=== PATIENT | male | born 1945 | race Caucasian/White ===

== ENCOUNTER → 2016-11-18 | Outpatient (CLI) | payer MEDICARE ==
--- NOTE | 2016-11-18 10:52 | US ---
EXAMINATION TYPE: US bladder DATE OF EXAM: 11/18/2016 10:36 AM COMPARISON: US 2014 CLINICAL HISTORY: N40.1 Benign prostatic hyperplasia with lower urin. Patient states has difficulty s tarting to void and c/o tightening sensation at onset of urination; post TURP 2014 Bladder jets are seen bilaterally both pre and post void. Post void residual volume abnormal as is >5 0ml at 51.4ml. Small fluid area is noted posterior to bladder = 4.1 x 4.3 x 0.5cm. IMPRESSION: 1. Mildly prominent post void residual. 2. Small amount of free fluid suggested.
== END | disposition home or self-care (01) ==
LOC: RADUSWWP 10:15
PROVIDERS: ATTEND Family Medicine
DX: N40.1 Benign prostatic hyperplasia with lower urinary tract symptoms (principal)
CPT/HCPCS: 76857

== ENCOUNTER → 2017-07-22 | Outpatient (CLI) | payer MEDICARE ==
--- NOTE | 2017-07-22 16:55 | PN ---
PROGRESS NOTE A 71-year-old male patient with known history of REM behavior disorder and severe periodic limb movements. The patient is coming in for a yearly check. I have treated this patient with clonazepam 0.5 mg at bedtime which had an excellent clinical response for him to the point where his violent and aggressive behaviors at night has completely subsided and the patient is not having any significant leg kicks. No numbness or tingling or creeping crawling sensation in lower extremities. He is averaging around 7- 8 hours of sleep at night without any major difficulties and waking up refreshed and alert and awake during the day. No side effects related to any of his medications. He maintains a regular sleep-wake cycle. No snoring. No weight gain. His weight has been stable over the past 1 year. He feels that the benefit of the medication is still unchanged over the past 1 year and would like to refill the medication. His sleep is interrupted mainly due to excess urination knowing that the patient has enlarged prostate and the patient was maintained on a combination of Proscar, Cardura and Flomax. He is post TURP. REVIEW OF SYSTEMS: A 12-point review of system was done. Positive findings are mentioned above in the history of present illness. Otherwise negative. PHYSICAL EXAMINATION: BP is 148/67, pulse 60, respirations 16, temp 97.7, saturation 99% on room air. Weight is 158, height is 5 feet 11 inches, BMI is 22, and neck size 13-3/4 of an inch. GENERAL APPEARANCE: Calm, comfortable. No acute distress. HEAD: Atraumatic, normocephalic. NECK: Supple. There is no JVD. No goiter neck mass. LUNGS: Clear to auscultation. HEART: Sounds regular rhythm. Normal S1, S2. No S3. No murmurs. ABDOMEN: Soft, nontender. No organomegaly. EXTREMITIES: No edema. No cyanosis or clubbing. NEUROLOGIC: The patient is OAx3. There is no focal neurological deficit. PSYCHIATRIC: The patient has appropriate mood and affect. IMPRESSION: 1. REM behavioral disorder. 2. Periodic limb movements, severe. 3. History of insomnia currently inactive and stable and well treated. 4. Hypertension. 5. Acid reflux. 6. Benign prostatic hypertrophy, post transurethral resection of prostate. PLAN: The patient continues to see if full benefit of clonazepam without any reported side effects. We will refill the medication at a dose of 0.5 mg for another year. He has no active issues or complaints for now. Continue the treatment and I will see him back in a year's time in followup. The patient is already getting ready to go to [place] for winter. We will continue to follow. MMODL / IJN: [id number] /
== END | disposition home or self-care (01) ==
LOC: SLEEP 15:02
PROVIDERS: ATTEND Internal Medicine Critical Care Medicine
DX: G47.52 REM sleep behavior disorder (principal); G47.61 Periodic limb movement disorder; N40.1 Benign prostatic hyperplasia with lower urinary tract symptoms; I10 Essential (primary) hypertension; K21.9 Gastro-esophageal reflux disease without esophagitis; Z86.59 Personal history of other mental and behavioral disorders; Z79.899 Other long term (current) drug therapy

== ENCOUNTER → 2018-05-19 | Outpatient (CLI) | payer MEDICARE ==
--- NOTE | 2018-05-19 13:24 | MR ---
EXAMINATION TYPE: MR lumbar spine wo/w con DATE OF EXAM: 05/19/2018 COMPARISON: None HISTORY: low back pain, numbness rt foot TECHNIQUE: Multiplanar, multisequence images of the lumbar spine were acquired utilizing 7.5 mL intravenous Gada vist gadolinium contrast. L1-L2: Posterior broad-based disc bulge causes mild anterior mass effect on the thecal sac. There is facet arthropathy with hypertrophy ligamentum flavum. No significant central stenosis or foraminal en croachment. L2-L3: Posterior broad-based disc bulge, extension of endplate disc complex causes mild anterior mass effect on the thecal sac and extends are essentially towards the foramina causing mild encroachment on the left greater than right. L3-L4: Posterior broad-based disc bulge causes mild anterior mass effect on the thecal sac. Facet art hropathy with hypertrophy of ligamentum flavum causes posterior lateral mass effect on the thecal sac . Circumferential extension of endplate disc complex results in some mild bilateral foraminal encroac hment. L4-L5: Listhesis contributes to cause a trefoil appearance of the thecal sac, there is facet arthropa thy with hypertrophy ligamentum flavum. Circumferential extension of endplate disc complex results in foraminal encroachment greater on the right than on the left which may be contributed by the spinal curvature, suspect there is a small right lateral disc herniation additionally, sagittal image 9 of t he T2 weighted data set. L5-S1: Laminectomy change is present bilaterally. There is no evident spinal stenosis. Circumferentia l extension of endplate disc complex encroaches upon the neural foramina. Mild anterior mass effect n oted on the thecal sac. Lumbar segments are intact. No paraspinal masses are identified. Conus medullaris has a normal appe arance. There is multilevel spondylosis. Minimal retrolisthesis grade 1 L5-S1, anterolisthesis grade 1 L4-5, retrolisthesis grade 1 L3-4, L2-3. There is loss of disc height signal at intervertebral leve ls and there is associated vacuum phenomenon L2-3 through L5-S1. Endplate discogenic marrow signal ch anges present compatible with degenerative disc disease. Parapelvic cysts are noted within the kidney s. There is a spinal curvature. No abnormal enhancement following contrast administration. IMPRESSION: Degenerative disc disease, multilevel foraminal encroachment, facet arthropathy as described. No sign ificant spinal stenosis. Postop changes, spinal curvature and additional findings above.
== END | disposition home or self-care (01) ==
LOC: RADMRIMAIN 08:31
PROVIDERS: ATTEND Psychiatry & Neurology Neurology
DX: M51.16 Intervertebral disc disorders with radiculopathy, lumbar region (principal); M46.96 Unspecified inflammatory spondylopathy, lumbar region; M43.9 Deforming dorsopathy, unspecified; Z98.890 Other specified postprocedural states
CPT/HCPCS: 82565; 72158; 36415; A9585

== ENCOUNTER → 2018-06-30 | Outpatient (CLI) | payer MEDICARE ==
--- NOTE | 2018-06-30 15:03 | PN ---
PROGRESS NOTE Drew is 72, and the patient is coming to see me for an annual check. The patient has been diagnosed having REM behavior disorder. He also has some periodic limb movements, restless legs syndrome type of features. He has done extremely well. This is his annual check. He is not having any issues with violent or aggressive behavior at nighttime and his nights are quiet and restful. He is sleeping next to his . As mentioned, no aggressive behavior or any other unusual behavior. He has been on Klonopin for more than a year. The does is at 0.5 mg. He goes to bed around 10 p.m., waking up 7 am in the morning. He is taking a nap during the day and this are 15-20 minute nap 20 minute power naps. No trouble with memory or concentration. No problems with falling, no problems with balance, no problems with equilibrium, no issues with . He underwent another prostate surgery/TURP in this in the occasion urination wakes him up from sleep. No other complaints otherwise for now. He will be going to [place] for winter. His current vitals, BP is 145/51 pulse 64, respirations 12,. [id number] 98.5 weight is of 159 height is 5 feet 10 inches. [place] score is 11. BMI 22.4 general appearance calm comfortable head is atraumatic, normocephalic. Neck is supple. No JVD. No goiter or neck masses. Lungs diminished otherwise clear heart sounds regular. Normal S1, S2. No S3, S4. No murmurs. Abdomen is soft, nontender. No organomegaly. EXTREMITIES: No edema. No cyanosis or clubbing. NEUROLOGIC: Alert and oriented x3. No focal neurological deficits. PSYCHIATRIC: Negative for anxiety or depression. USUAL MEDICATIONS INCLUDE: Cardura 1 mg daily, and Klonopin 0.5 mg p.o. daily ranitidine 150 mg twice a day. Lisinopril 20 mg p.o. daily Klor-Con 10 mg p.o. daily. Mesalamine 1.2 g twice a day. Proscar 5 mg p.o. daily Flomax 0.4 mg p.o. daily. IMPRESSION: 1. REM behavior disorder on chronic pain well controlled with a dose of 0.5 mg p.o. daily. The patient takes the medication prior half an hour prior to going to sleep. 2. Periodic limb movements. Severe currently inactive and stable. No signs of any sleep fragmentation no major hypersomnia or sleepiness during the day. 3. History of insomnia \. improved, P next \\\hypertension next chronic acid reflux. 4. Benign prostatic hypertrophy. PLAN: 1. Continue the medication for a year at the same dose. 2. No signs of any REM behavior disorder. 3. No signs of any sleep fragmentation, periodic limb movements are well treated for now. Follow up with his primary care physician. MMODL / IJN: [id number] /
== END | disposition home or self-care (01) ==
LOC: SLEEP 13:07
PROVIDERS: ATTEND Internal Medicine Critical Care Medicine
DX: G47.52 REM sleep behavior disorder (principal); G47.61 Periodic limb movement disorder; I10 Essential (primary) hypertension; K21.9 Gastro-esophageal reflux disease without esophagitis; N40.0 Benign prostatic hyperplasia without lower urinary tract symptoms; Z79.899 Other long term (current) drug therapy

== ENCOUNTER → 2019-07-29 | Outpatient (CLI) | payer MEDICARE ==
--- NOTE | 2019-08-04 13:15 | P.ARTDOP ---
Arterial Doppler LOWER EXTREMITY ARTERIAL DOPPLER: DATE OF SERVICE: 07/29/2019 Reason for study: Right foot numbness and cramping. Doppler waveforms: Multiphasic bilaterally throughout. Pulse volume recording: []. Pressure gradients: None. Ankle-brachial indices: Greater than 1 bilaterally. Toe pressures: 113 on the right, 137 on the left Impression: Normal study.
== END | disposition home or self-care (01) ==
LOC: RADUSWWP 12:42
PROVIDERS: ATTEND Family Medicine
DX: M79.606 Pain in leg, unspecified (principal)
CPT/HCPCS: 93922

== ENCOUNTER → 2020-06-13 | Outpatient (CLI) | payer MEDICARE ==
--- NOTE | 2020-06-13 16:01 | PN ---
PROGRESS NOTE A 74-year-old male patient coming in for an annual check. The patient has been diagnosed having a component of REM behavior disorder. I started the patient on clonazepam 10.5 mg at bedtime, which has improved significantly symptoms of agitation, restlessness and he does not have any significant violent or aggressive behavior at nighttime. At the same time, his leg kicks have improved and the patient has settled and he is sleeping much more calm and comfortable and quiet according to the . He takes his clonazepam 0.5 mg around half to 1 hour before going to bed. He is going to bed around 11 o'clock to midnight. He wakes up in the morning without any major difficulties. No daytime hypersomnia or sleepiness. He wakes up a few times in the middle of night to urinate. He has undergone TURP. He does not fall. He does not have any sleepwalking. No loss in balance or equilibrium. He was having some dizziness and this was attributed to some blood pressure issues and his blood pressure medication had been adjusted and since then, dizziness went away. His current [place] score is at 10. No recent weight gain. No other new complaints otherwise for now. He has an intact memory and concentration and his judgment is stable. PHYSICAL EXAMINATION: BP is 138/63, pulse is 68, respirations 18, temperature 98.1, saturation 99% on room air. [place] score is at 10. GENERAL APPEARANCE: Calm, comfortable. HEAD: Atraumatic, normocephalic. NECK: Supple. No JVD. No goiter or neck masses. LUNGS: Clear to auscultation. HEART: Heart sounds are regular rate and rhythm, normal S1, S2. No murmurs. ABDOMEN: Soft, nontender. No organomegaly. EXTREMITIES: No edema, no cyanosis or clubbing. NEUROLOGIC: Awake, alert, there is no focal neurologic neurological deficit. IMPRESSION: 1. REM behavioral disorder, currently on clonazepam, well controlled. 2. Severe periodic limb movement activity, stable on clonazepam. 3. Insomnia, improved with clonazepam. 4. BPH with nocturnal urination. PLAN: 1. No side effect to clonazepam. The patient is taking medication without any morning hangover. No sleepwalking. No falls. No augmentation effect. The patient will be kept on the same medication for now, the dose of 0.5 mg at bedtime and this will be refilled for another 1 year. 2. Keep good sleep hygiene measures. 3. Implement good sleep hygiene measures. 4. See me back in a year's time in followup or earlier if needed. His condition is stable for now. I do not see any objections for this medication to be refilled for another year. MMODL / IJN: [id number] /
== END | disposition home or self-care (01) ==
LOC: SLEEP 14:34
PROVIDERS: ATTEND Internal Medicine Critical Care Medicine
DX: G47.61 Periodic limb movement disorder (principal); G47.00 Insomnia, unspecified; N40.0 Benign prostatic hyperplasia without lower urinary tract symptoms

== ENCOUNTER 2022-05-31 06:47 | Inpatient (IN) | payer MEDICARE ==
[2022-05-31] MEDS ORDERED: MORPHINE SULFATE 4 MG/ML SYRINGE IV STA (07:18)
--- NOTE | 2022-05-31 07:24 | ED ---
General Adult HPI - General Chief complaint: Extremity Problem,Nontraumatic Stated complaint: Back pain Time Seen by Provider: 05/31/22 06:56 Source: patient, family, RN notes reviewed Mode of arrival: wheelchair Limitations: no limitations - History of Present Illness Initial comments: Patient is a pleasant 76-year-old male presenting to the emergency Department with chief complaint of back pain. Onset of symptoms was around 5:30. Discomfort does increase with movement and position changes. Patient also has discomfort radiating down his right arm that is difficult to describe. Patient feels it is more in his joints. Discomfort is mostly near the scapula on the right. No headache. No confusion. Patient feels the right arm may be a little bit weak. Patient also had difficulty walking into the emergency department. Patient did not have walking difficulty earlier this morning. - Related Data Home Medications Medication Instructions Recorded Confirmed clonazePAM [KlonoPIN] 0.5 mg PO HS 07/28/15 05/31/22 lisinopriL [Prinivil] 20 mg PO DAILY 07/28/15 05/31/22 Cholecalciferol (Vitamin D3) 75 mcg PO DAILY 05/31/22 05/31/22 [Vitamin D3 (3000 Iu)] Famotidine [Pepcid] 20 mg PO AC-BID 05/31/22 05/31/22 Mesalamine [Lialda] 2.4 gm PO DAILY 05/31/22 05/31/22 Multivitamins, Thera [Multivitamin 1 tab PO DAILY 05/31/22 05/31/22 (formulary)] Potassium Chloride 10 meq PO DAILY 05/31/22 05/31/22 Saw Wales 500 mg PO DAILY 05/31/22 05/31/22 Vitamin B Complex 1 cap PO DAILY 05/31/22 05/31/22 Allergies Allergy/AdvReac Type Severity Reaction Status Date / Time amlodipine besylate AdvReac extreme Verified 05/31/22 06:53 [From Norvasc] anxiety amoxicillin trihydrate AdvReac Nausea & Verified 05/31/22 06:53 [From Augmentin] Vomiting & Diarrhea potassium clavulanate AdvReac Nausea & Verified 05/31/22 06:53 [From Augmentin] Vomiting & Diarrhea Review of Systems ROS Statement: Those systems with pertinent positive or pertinent negative responses have been documented in the HPI. ROS Other: All systems not noted in ROS Statement are negative. Constitutional: Denies: fever Eyes: Denies: eye pain ENT: Denies: ear pain Respiratory: Denies: cough Cardiovascular: Denies: chest pain Endocrine: Denies: fatigue Gastrointestinal: Denies: abdominal pain Genitourinary: Denies: dysuria Musculoskeletal: Reports: as per HPI, back pain Skin: Denies: rash Neurological: Reports: as per HPI. Denies: headache, confusion Past Medical History Past Medical History: GERD/Reflux, Hypertension Additional Past Medical History / Comment(s): diarrhea, sometimes bloody mucus, abd. 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 administrative assistant, REM sleeping disorder History of Any Multi-Drug Resistant Organisms: None Reported Past Surgical History: Back Surgery, Hernia Repair, Prostate Surgery Additional Past Surgical History / Comment(s): TURP in 2014 Past Anesthesia/Blood Transfusion Reactions: Previous Problems w/ Anesthesia, Postoperative Nausea & Vomiting (PONV) Additional Past Anesthesia/Blood Transfusion Reaction / Comment(s): slow to wake up w/TURP Past Psychological History: No Psychological Hx Reported Smoking Status: Never smoker Past Alcohol Use History: Rare Past Drug Use History: None Reported - Past Family History Father Family Medical History: Cancer Sister(s) Family Medical History: Cancer General Exam Limitations: no limitations General appearance: alert, in no apparent distress Head exam: Present: normocephalic Eye exam: Present: normal appearance, PERRL, EOMI ENT exam: Present: normal oropharynx Neck exam: Present: normal inspection. Absent: tenderness Respiratory exam: Present: normal lung sounds bilaterally Cardiovascular Exam: Present: regular rate, normal rhythm Expanded Peripheral pulses: 2+: Radial (R), Radial (L), Posterior Tibialis (R), Posterior Tibialis (L) GI/Abdominal exam: Present: soft. Absent: tenderness Extremities exam: Present: normal inspection. Absent: tenderness Back exam: Present: tenderness (Right mid thoracic, mostly medial to the scapula) Neurological exam: Present: alert, oriented X3, CN II-XII intact Expanded Neurological exam: Present: protecting the airway Speech: Present: fluid speech Cranial nerves: EOM's Intact: Normal Sensory exam: Upper Extremity Light Touch: Normal, Lower Extremity Light Touch: Normal Motor strength exam: RUE: 5 (Slight decrease strength with inspection manager), LUE: 5, RLE: 2/1, LLE: 5 Eye Response: (4) open spontaneously Motor Response: (6) obeys commands Verbal Response: (5) oriented Psychiatric exam: Present: normal affect, normal mood Skin exam: Present: normal color Course Vital Signs 05/31/22 05/31/22 05/31/22 06:51 07:00 07:45 Temperature 97.8 F Pulse Rate 70 74 54 L Respiratory 18 18 18 Rate Blood Pressure 211/96 213/112 202/92 O2 Sat by Pulse 99 100 98 Oximetry 05/31/22 05/31/22 05/31/22 08:00 08:15 08:30 Temperature Pulse Rate 58 L 58 L 60 Respiratory 18 18 18 Rate Blood Pressure 163/83 161/80 165/87 O2 Sat by Pulse 98 98 98 Oximetry 05/31/22 08:45 Temperature Pulse Rate 52 L Respiratory 18 Rate Blood Pressure 179/85 O2 Sat by Pulse 97 Oximetry - Reevaluation(s) Reevaluation #1: 05/31/22 07:32 I did speak with Dr. Arredondo who agrees he does not feel stroke is the likely diagnosis however does recommend calling a code stroke to rule out the potential and he can help with evaluation of patient. He will evaluate patient. Patient woke with pain and right arm symptoms at 5:30 in the morning. Patient did not notice leg weakness at that time. Last known well for leg weakness would be 6:30. 05/31/22 07:48 Case was discussed with neurology Dr. nugent who agrees patient is not a TPA candidate secondary to patient not being a clear-cut diagnosis of CVA. 05/31/22 08:29 05/31/22 08:35 Patient reevaluated. Case was also discussed with practitioner branch, who was requested to evaluate patient. He will consult with Dr. Abrams. They will determine if patient needs MRI. 05/31/22 08:57 Case was discussed with Dr. López, who will admit covering Dr. Ramirez. He does request ordering an MRI cervical and thoracic with and without IV contrast. EKG Findings - EKG Comments: EKG Findings:: EKG interpreted by me sinus rhythm at 74. ME 172. QRS 95. QT 382. QTC 410. Normal axis. Normal QRS. T wave inversion V6. Medical Decision Making - Lab Data Result diagrams: 05/31/22 07:22 05/31/22 07:22 Lab Results 05/31/22 05/31/22 05/31/22 Range/Units 07:22 07:22 07:22 WBC 4.5 (3.8-10.6) k/uL RBC 5.23 (4.30-5.90) m/uL Hgb 16.0 (13.0-17.5) gm/dL Hct 43.9 (39.0-53.0) % MCV 83.9 (80.0-100.0) fL MCH 30.6 (25.0-35.0) pg MCHC 36.5 (31.0-37.0) g/dL RDW 12.8 (11.5-15.5) % Plt Count 146 L (150-450) k/uL MPV 7.7 Neutrophils % 69 % Lymphocytes % 16 % Monocytes % 11 % Eosinophils % 1 % Basophils % 1 % Neutrophils # 3.1 (1.3-7.7) k/uL Lymphocytes # 0.7 L (1.0-4.8) k/uL Monocytes # 0.5 (0-1.0) k/uL Eosinophils # 0.1 (0-0.7) k/uL Basophils # 0.0 (0-0.2) k/uL PT 10.3 (9.0-12.0) sec INR 0.9 (<1.2) APTT 25.7 (22.0-30.0) sec D-Dimer 0.48 (<0.60) mg/L FEU Sodium 139 (137-145) mmol/L Potassium 3.4 L (3.5-5.1) mmol/L Chloride 105 (98-107) mmol/L Carbon Dioxide 31 H (22-30) mmol/L Anion Gap 3 mmol/L BUN 18 (9-20) mg/dL Creatinine 0.83 (0.66-1.25) mg/dL Est GFR (CKD-EPI)AfAm >90 (>60 ml/min/1.73 sqM) Est GFR (CKD-EPI)NonAf 86 (>60 ml/min/1.73 sqM) Glucose 129 H (74-99) mg/dL Plasma Lactic Acid Alexys (0.7-2.0) mmol/L Calcium 8.5 (8.4-10.2) mg/dL Magnesium 2.1 (1.6-2.3) mg/dL Total Bilirubin 0.6 (0.2-1.3) mg/dL AST 37 (17-59) U/L ALT 36 (4-49) U/L Alkaline Phosphatase 78 (38-126) U/L Troponin I (0.000-0.034) ng/mL Total Protein 6.7 (6.3-8.2) g/dL Albumin 4.0 (3.5-5.0) g/dL 05/31/22 05/31/22 Range/Units 07:22 07:22 WBC (3.8-10.6) k/uL RBC (4.30-5.90) m/uL Hgb (13.0-17.5) gm/dL Hct (39.0-53.0) % MCV (80.0-100.0) fL MCH (25.0-35.0) pg MCHC (31.0-37.0) g/dL RDW (11.5-15.5) % Plt Count (150-450) k/uL MPV Neutrophils % % Lymphocytes % % Monocytes % % Eosinophils % % Basophils % % Neutrophils # (1.3-7.7) k/uL Lymphocytes # (1.0-4.8) k/uL Monocytes # (0-1.0) k/uL Eosinophils # (0-0.7) k/uL Basophils # (0-0.2) k/uL PT (9.0-12.0) sec INR (<1.2) APTT (22.0-30.0) sec D-Dimer (<0.60) mg/L FEU Sodium (137-145) mmol/L Potassium (3.5-5.1) mmol/L Chloride (98-107) mmol/L Carbon Dioxide (22-30) mmol/L Anion Gap mmol/L BUN (9-20) mg/dL Creatinine (0.66-1.25) mg/dL Est GFR (CKD-EPI)AfAm (>60 ml/min/1.73 sqM) Est GFR (CKD-EPI)NonAf (>60 ml/min/1.73 sqM) Glucose (74-99) mg/dL Plasma Lactic Acid Alexys 1.4 (0.7-2.0) mmol/L Calcium (8.4-10.2) mg/dL Magnesium (1.6-2.3) mg/dL Total Bilirubin (0.2-1.3) mg/dL AST (17-59) U/L ALT (4-49) U/L Alkaline Phosphatase (38-126) U/L Troponin I <0.012 (0.000-0.034) ng/mL Total Protein (6.3-8.2) g/dL Albumin (3.5-5.0) g/dL Disposition Clinical Impression: Back pain, Weakness Disposition: ADMITTED IP TO THIS [facility] Condition: Serious Is patient prescribed a controlled substance at d/c from ED?: No Time of Disposition: 08:36
[2022-05-31 07:33] LABS: Basophils % (A) 1 %; Eosinophils # (A) 0.1 k/uL (0-0.7); Eosinophils % (A) 1 %; HCT 43.9 % (39.0-53.0); Lymphocytes # (A) 0.7 k/uL (1.0-4.8); Lymphocytes % (A) 16 %; MCH 30.6 pg (25.0-35.0); MCHC 36.5 g/dL (31.0-37.0); MCV 83.9 fL (80.0-100.0); Mean Platelet Volume 7.7; Monocytes # (A) 0.5 k/uL (0-1.0); Monocytes % (A) 11 %; Neutrophils # (A) 3.1 k/uL (1.3-7.7); Neutrophils % (A) 69 %; Platelet Count 146 k/uL (150-450); RBC 5.23 m/uL (4.30-5.90); RDW 12.8 % (11.5-15.5); WBC 4.5 k/uL (3.8-10.6)
[2022-05-31 07:48] LABS: ALT 36 U/L (4-49); AST 37 U/L (17-59); African American GFR (CKD) >90 (>60 ml/min/1.73 sqM); Alkaline Phosphatase 78 U/L (38-126); Anion Gap 3 mmol/L; Blood Urea Nitrogen 18 mg/dL (9-20); Calcium 8.5 mg/dL (8.4-10.2); Carbon Dioxide 31 mmol/L (22-30); Chloride 105 mmol/L (98-107); Glucose 129 mg/dL (74-99); Magnesium 2.1 mg/dL (1.6-2.3); Non-African American GFR(CKD) 86 (>60 ml/min/1.73 sqM); Potassium 3.4 mmol/L (3.5-5.1); Sodium 139 mmol/L (137-145); Total Bilirubin 0.6 mg/dL (0.2-1.3); Total Protein 6.7 g/dL (6.3-8.2)
[2022-05-31 07:50] LABS: INR 0.9 (<1.2); Partial Thromboplastin Time 25.7 sec (22.0-30.0); Prothrombin Time 10.3 sec (9.0-12.0)
--- NOTE | 2022-05-31 07:51 | CT ---
EXAMINATION TYPE: CT brain wo con DATE OF EXAM: 05/31/2022 COMPARISON: 06/19/2012 HISTORY: weakness CT DLP: 1082.[address] of the brain was performed. The ventricles, basal cisterns and sulci overlying the cerebral convexities demonstrate mild enlargem ent. There is no evidence for intracranial hemorrhage or sulcal effacement. There is decreased attenuation about the periventricular white matter and deep white matter of both c erebral hemispheres, compatible with chronic small vessel ischemia. Differential diagnosis does inclu de demyelination. No mass effects are seen.No midline shift. Osseous calvarium is intact. If symptoms persist consider MRI. IMPRESSION: 1. Age related atrophic and chronic small vessel ischemic change without acute intracranial process s een at this time.
--- NOTE | 2022-05-31 08:12 | XR ---
EXAMINATION TYPE: XR chest 2V DATE OF EXAM: 05/31/2022 COMPARISON: NONE TECHNIQUE: PA and lateral views submitted. HISTORY: Weakness FINDINGS: The lungs are clear and there is no pneumothorax, pleural effusion, or focal pneumonia. Heart size normal. Hyperinflation suggests COPD. Arthropathy of the shoulders. Hypertrophic changes of the spine . IMPRESSION: 1. No acute process.
[2022-05-31] MEDS ORDERED: NALOXONE 0.4 MG/ML 1 ML VIAL IV PRN (08:38)
--- NOTE | 2022-05-31 08:51 | CT ---
EXAMINATION TYPE: CT angio head neck DATE OF EXAM: 05/31/2022 HISTORY: weakness COMPARISON: CT DLP: 554.7 mGycm. Automated Exposure Control for Dose Reduction was Utilized. TECHNIQUE: CTA scan of the neck is performed with IV Contrast, patient injected with 65 mL of Isovue 370, axial images are obtained, coronal and sagittal reformatted images are reviewed. Three-D recons tructed images are created on an independent workstation and reviewed. Source images are reviewed. FINDINGS: Carotid/Vascular Structures: There is a common origin of the right subclavian and left common carotid artery from the innominate. Left clavian artery appears normal. Vertebral arteries are codominant. S ome minimal plaquing is at the left carotid bifurcation. No significant flow-limiting stenosis is erika dent. The internal carotid arteries and vertebral arteries are patent to the skull base. Cervical of Gonsalves: Vertebral basilar system appears normal. Posterior cerebral vasculature is unrema rkable. Internal carotid arteries bifurcate normally into A1 and M1 segments. A2 segments are normal. The anterior communicating artery appears to be patent. Left Posterior communicating artery is paten t. Right posterior communicating artery is patent. Other: Portion of the thyroid visualized is normal. There is a 0.8 cm nodule within the right upper l regulo field. This appears to have a central calcification suggesting granuloma. Monitoring for stabilit y is recommended. Additional apical nodules are present; on the right this measures 0.3 cm and on the left this measures 0.5 cm. No aortic dissection or aneurysm is evident within the field of view. IMPRESSION: 1. No flow-limiting stenosis bilateral carotid bifurcations. 2. Normal [place] of [place]ves 3. Apical lung nodules. Follow-up chest exam in 6 months is recommended to confirm stability. NASCET criteria was used in interpretation of this exam?
[2022-05-31] MEDS: SODIUM CHLORIDE 0.9% 1,000 ML IV SCH (08:58)
--- NOTE | 2022-05-31 09:25 | US ---
EXAMINATION TYPE: US duplex aorta DATE OF EXAM: 05/31/2022 COMPARISON: NONE CLINICAL HISTORY: Pain, evaluate aorta. TECHNIQUE: Multiple sonographic images of the abdominal aorta are obtained. FINDINGS: EXAM MEASUREMENTS: Abdominal Aorta: Proximal: 2.5cm Mid: 2.0cm Distal: 1.7cm Bifurcation: obscured by overlying bowel gas IMPRESSION: Visualized aorta is normal. No diagnostic aneurysm
[2022-05-31] MEDS: FAMOTIDINE 20 MG TAB PO SCH ×2 (09:31→22:15)
[2022-05-31] MEDS: HYDROmorphone 0.5 MG/0.5 ML SYRINGE IVP PRN (10:04)
[2022-05-31] MEDS ORDERED: NON FORMULARY DRUG (Vitamin B Complex [Vitamin B Complex] 1 EACH Capsule) PO SCH (10:15)
--- NOTE | 2022-05-31 10:44 | P.CNNES ---
History of Present Illness Consult date: 05/31/22 Requesting physician: Darren Quijano Reason for Consult: weakness History of Present Illness: This is a 76-year-old gentleman who presented emergency department on 05/31/2022 because of weakness of the right side. Patient last normal state was about midnight and when woke-up today between 5-5:30AM he noticed his right upper extremity is numb and was having pain on "right blade" referring to right inferior posterior blade. He noticed that his right hand is weak. He denied any facial weakness, difficulty getting his words out, any visual disturbance. Denied of any headache. Denies of any chest pain or any back pain. He stated the pain was a acute in onset. He initially did not have weakness in the right lower extremity and according to the when they arrive to the hospital patient was having weakness in the right lower extremity and that was around 6ish AM today. Now he has weakness over the left lower extremity. Patient stated that he had a bowel movement yesterday and denies worsening of the bowel movement. Denies any worsening of his urinary symptoms. Denies any history of stroke or denies any history of cancer. Denies history of fall and that's recent. Denies trauma to the neck or back. He currently feels the pain in the lights inferior posterior shoulder is rating over to the right and neck region. He denies any numbness in the perianal region. Denies being on any anticoagulation or being on aspirin or antiplatelets. Some of the workup during this hospital visit Initial vital his blood pressure of 211/96, heart rate of 70, respiratory of 18, temperature of 97.8 Fahrenheit oral and pulse ox of 99% room air. The ED physician contacted me via phone and I asked him to activate the stroke code. CT of the head is reported as age-related atrophic and chronic small vessel ischemic change without acute intracranial process seen at this time. CT angiography of the head and neck was reported as no flow-limiting stenosis bilateral carotid bifurcation. Normal inupiat of [place]. Apical lung nodule. Follow-up chest exam and 6 months is recommended to confirm stability. Chest x-rays reported as no acute process. EKG is reported as sinus rhythm. Possible left atrial enlargement. Nonspecific ST and T-wave abnormality. Borderline EKG. Duplex of the aorta is reported as visualized at aorta is normal. No diagnostic aneurysm. The ED spoke with stroke attending (Dr. Valiente) who felt this is not TPA candidate did since not a clear stroke. Also the patient is outside the window and the risk out weigh the benefits. Review of Systems Review of system: The 12 point system was reviewed and apparent positive and negative per HPI. Past Medical History Past Medical History: GERD/Reflux, Hypertension Additional Past Medical History / Comment(s): diarrhea, sometimes bloody mucus, abd. 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, REM sleeping disorder History of Any Multi-Drug Resistant Organisms: None Reported Past Surgical History: Back Surgery, Hernia Repair, Prostate Surgery Additional Past Surgical History / Comment(s): TURP in 2014 Past Anesthesia/Blood Transfusion Reactions: Previous Problems w/ Anesthesia, Postoperative Nausea & Vomiting (PONV) Additional Past Anesthesia/Blood Transfusion Reaction / Comment(s): slow to wake up w/TURP Past Psychological History: No Psychological Hx Reported Smoking Status: Never smoker Past Alcohol Use History: Rare Past Drug Use History: None Reported - Past Family History Father Family Medical History: Cancer Sister(s) Family Medical History: Cancer Medications and Allergies Home Medications Medication Instructions Recorded Confirmed Type clonazePAM [KlonoPIN] 0.5 mg PO HS 07/28/15 05/31/22 History lisinopriL [Prinivil] 20 mg PO DAILY 07/28/15 05/31/22 History Cholecalciferol (Vitamin D3) 75 mcg PO DAILY 05/31/22 05/31/22 History [Vitamin D3 (3000 Iu)] Famotidine [Pepcid] 20 mg PO AC-BID 05/31/22 05/31/22 History Mesalamine [Lialda] 2.4 gm PO DAILY 05/31/22 05/31/22 History Multivitamins, Thera [Multivitamin 1 tab PO DAILY 05/31/22 05/31/22 History (formulary)] Potassium Chloride 10 meq PO DAILY 05/31/22 05/31/22 History Saw [place] 500 mg PO DAILY 05/31/22 05/31/22 History Vitamin B Complex 1 cap PO DAILY 05/31/22 05/31/22 History Allergies Allergy/AdvReac Type Severity Reaction Status Date / Time amlodipine besylate AdvReac extreme Verified 05/31/22 06:53 [From [facility]] anxiety amoxicillin trihydrate AdvReac Nausea & Verified 05/31/22 06:53 [From Augmentin] Vomiting & Diarrhea potassium clavulanate AdvReac Nausea & Verified 05/31/22 06:53 [From Augmentin] Vomiting & Diarrhea Physical Examination - Vital Signs Vital Signs: Vital Signs Temp Pulse Resp BP Pulse Ox 05/31/22 08:45 52 L 18 179/85 97 05/31/22 08:30 60 18 165/87 98 05/31/22 08:15 58 L 18 161/80 98 05/31/22 08:00 58 L 18 163/83 98 05/31/22 07:45 54 L 18 202/92 98 05/31/22 07:00 74 18 213/112 100 05/31/22 06:51 97.8 F 70 18 211/96 99 Intake and Output 05/30/22 05/31/22 05/31/22 22:59 06:59 14:59 Other: Weight 72.575 kg GENERAL: The patient is lying in bed and is not in acute distress. CHEST: The heart rate is regular rate rhythm. No murmurs to auscultation. No carotid bruit bilaterally. LUNG: Clear to auscultation bilaterally no wheezing noted throughout. Not labored breathing. ABDOMEN/GI: Bowel sounds present in all 4 quadrants. No tenderness to palpation throughout. NEUROLOGICAL: Higher mental function: The patient is awake, alert, oriented to self, place and time. Patient is following commands. No aphasia and no neglect. Cranial nerves: The pupils are round, equal and reactive to light. Visual lawrence are full to confrontation throughout. Extraocular movement is intact no nystagmus is noted. Facial sensation is normal to touch throughout. The facial strength is normal throughout. Hearing is mildly decreased bilaterally to hand rub. Tongue is midline and moved [id number] without any difficulty. No dysarthria is noted. Has hypophonia. Shoulder shrug is normal bilaterally. Motor: Gait is deferred since weakness in lowers. The strength is right hand is 3-4, right forearm extension is 4-4+, foream flexion is 5-. Right lower extremity is 0. Left lower: hip is 2-3, knee extension is 3, ankle plantar f lexion is 3 while extension is 4. Left upper is 5/5. Cerebellum: Normal finger to nose bilaterally. Sensation: Sensation is decreased over the right upper (patch decreased in foearm in radial) to touch. Normal in lowers to touch according to patient. Reflexes (right/left): Right brachioradialis is 3+. Otherwise uppers are 1+. Lowers are 0. Plantars are mute bilaterally. Results - Laboratory Findings CBC and BMP: 05/31/22 07:22 05/31/22 07:22 Abnormal Lab Findings: Abnormal Labs 05/31/22 05/31/22 07:22 07:22 Plt Count 146 L Lymphocytes # 0.7 L Potassium 3.4 L Carbon Dioxide 31 H Glucose 129 H Assessment and Plan Assessment: This is a 76-year-old gentleman who presented to the emergency department [facility] of acute onset of initially right upper extremity weakness and numbness and it seems more distal. Last normal state was at midnight then he woke up around between 5 to 5:30 AM on 05/31/2022 and noticed his symptoms. Then he noticed right lower extremity around 6ish am and now having left lower extremity weakness. * Acute weakness of the right side (plegic over the right lower, and paresis ove r the right upper and left lower) and has brisk reflex over the right brachioradalisis (seems cervical myelopathy): Unsure exact etiology at this time. Rule out cervical/thoracic stroke because of acute onset. Rule out mass which is seems less likely vs aortic dissection but from the workup so far seems very low/unlikely. Symptoms due to radiculopathy especially with acute onset and worsening of his condition and him having bilateral leg deficits and right upper extremity. * Escalated hypertension likely due to pain. * History of hypertension * History of back surgery * History of prostate issues s/p TURP in 2014 Plan: Agree with the MRI cervical and thoracic with and without stat. If patient does have any mass or bleed in the spinal cord region then he needs a neurosurgical evaluation. If MRI C and T-spine are negative to explain his symptoms then recommend pursuing MRI Brain. In the meantime I ordered CT cervical thoracic lumbar without stat until we get the MRI. Ordered Q1 hour Neuro checks Recommend patient to be admitted to ICU not floor from neurological stand point and needs closer observation since his symptoms are worsening Please avoid drastic correction of low blood pressure. Recommend blood pressure for now to be 160-180 and will defer management to primary team. I'll hold off on antiplatelet for now until MRI is complete. Orthopedic surgery team is on board Consulting physical therapy and occupation therapy Patient condition is very guarded. The plan was discussed with the patient and his was at bedside as well as the ED physician and the primary team. Thank you for the consultation Time with Patient: Greater than 30
[2022-05-31] MEDS: POTASSIUM CHLORIDE ER 10 MEQ TAB.ER.PRT PO SCH (11:12)
[2022-05-31] MEDS: CHOLECALCIFEROL 25 MCG (1000 IU) TABLET PO SCH (11:12)
[2022-05-31] MEDS: MULTIVITAMINS, THERA 1 EACH TAB PO SCH (11:12)
[2022-05-31] MEDS: lisinopriL 20 MG TAB PO SCH (11:12)
[2022-05-31] MEDS: LORazepam 2 MG/ML INJ IV PRN ×2 (11:13→15:57)
[2022-05-31] MEDS: BALSALAZIDE DISODIUM 750 MG CAPSULE PO SCH ×3 (11:13→22:15)
--- NOTE | 2022-05-31 11:34 | CT ---
EXAMINATION TYPE: CT CervThorLumbar spine wo con DATE OF EXAM: 05/31/2022 COMPARISON: None HISTORY: Weakness, back pain, loss of strength through the lower extremities. CT DLP: 1756.7 mGycm Automated exposure control for dose reduction was used. Contrast: None Technique: Axial images 3 mm thick sections. Reconstructed images in the coronal and sagittal plane. Bone and soft tissue windows reviewed. FINDINGS: Cervical, Thoracic and lumbar spine are evaluated. No spinal canal stenosis is evident. Some facet de generative changes at the posterior lateral thecal sac compression within the lumbar spine. Some endp late changes are present at the L4-5 level with anterior thecal sac flattening. Left foraminal stenos is is present L5-S1 and L3-4 and L2-3. Right foraminal narrowing is present L2-3 through L5-S1 due to mild to moderate degree. Some vacuum disc phenomenon is present L5-S1, L4-5, L3-4 and T11-12. There is loss of disc height L2- 3. No acute osseous abnormality is evident. Note is made of anterior vertebral body calcification allen ng the mid thoracic spine. Consider ankylosing spondylitis within the differential. No acute abnormal ity is evident. Some mild disc bulge may be present C2-3 without cord contact or cord deformity. No discrete abnormality to account for patient's lower extremity symptoms. Recommend MRI for addition al workup. Preliminary results were discussed with the referring physician by telephone at the time o f preliminary interpretation. IMPRESSION: 1. MILD CHRONIC CHANGES INCLUDING DEGENERATIVE DISC CHANGES THROUGHOUT THE SPINAL COLUMN AND LOWER JUDY MBAR SPINE FORAMINAL NARROWING. NO DISCRETE ABNORMALITY TO ACCOUNT FOR PATIENT'S SYMPTOMS BY CT. REC OMMEND MRI FOR ADDITIONAL WORKUP.
--- NOTE | 2022-05-31 13:02 | P.CNOR ---
History of Present Illness - [facility] Consult date: 05/31/22 Consult reason: back pain History of present illness: Patient is a 76-year-old male who presented to [facility] for evaluation of back pain today. Apparently the patient woke up around 5:30 in th is morning and noticed pain in the right shoulder blade area that came across his back. He then noticed the discomfort going on in his right upper extremity. He then developed weakness along with numbness and tingling in that extremity. Progress to his left upper extremity, and also tenderness in his back in that region. Patient was brought to the emergency room by family, when getting out of a car he felt weakness in the bilateral lower extremities, right being worse than the left. He also has noticed some vague numbness and tingling in the bilateral lower extremities. Stroke protocol was taken in the emergency room, patient was admitted to the hospital for further evaluation. He is being followed by internal medicine and neurology. He is currently on the cardiac step and that is waiting for bed in the ICU for closer management. Our orthopedic team was consulted with regards to these symptoms. Neurology is alert he evaluated the patient. CT scans of the cervical, thoracic and lumbar spine were ordered. MRIs of the cervical, thoracic and lumbar spine were also ordered. Patient has had a history of a previous back surgery, he had 08/08/1985 and one in 1990, no instrumentation was used. Denies any acute back pain over the last month or so. He denies any recent illnesses. He denies any recent changes in activity. Denies any family history of MS or other neurological disorders. Patient did state he lost bladder function today in the emergency room. He has not noticed loss of bowel function at this time. He notes a vague numbness and tingling in all extremities. He denies any obvious genital appearing male numbness at this time. He denies any recent trauma to this time. He has no other orthopedic complaints. Review of Systems Constitutional: Reports as per HPI Past Medical History Past Medical History: GERD/Reflux, Hypertension Additional Past Medical History / Comment(s): diarrhea, sometimes bloody mucus, abd. 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, REM sleeping disorder History of Any Multi-Drug Resistant Organisms: None Reported Past Surgical History: Back Surgery, Hernia Repair, Prostate Surgery Additional Past Surgical History / Comment(s): TURP in 2014 Past Anesthesia/Blood Transfusion Reactions: Previous Problems w/ Anesthesia, Postoperative Nausea & Vomiting (PONV) Additional Past Anesthesia/Blood Transfusion Reaction / Comm: slow to wake up w/TURP Past Psychological History: No Psychological Hx Reported Smoking Status: Never smoker Past Alcohol Use History: Rare Past Drug Use History: None Reported - Past Family History Father Family Medical History: Cancer Sister(s) Family Medical History: Cancer Medications and Allergies Home Medications Medication Instructions Recorded Confirmed Type clonazePAM [KlonoPIN] 0.5 mg PO HS 07/28/15 05/31/22 History lisinopriL [Prinivil] 20 mg PO DAILY 07/28/15 05/31/22 History Cholecalciferol (Vitamin D3) 75 mcg PO DAILY 05/31/22 05/31/22 History [Vitamin D3 (3000 Iu)] Famotidine [Pepcid] 20 mg PO AC-BID 05/31/22 05/31/22 History Mesalamine [Lialda] 2.4 gm PO DAILY 05/31/22 05/31/22 History Multivitamins, Thera [Multivitamin 1 tab PO DAILY 05/31/22 05/31/22 History (formulary)] Potassium Chloride 10 meq PO DAILY 05/31/22 05/31/22 History Saw [place] 500 mg PO DAILY 05/31/22 05/31/22 History Vitamin B Complex 1 cap PO DAILY 05/31/22 05/31/22 History Allergies Allergy/AdvReac Type Severity Reaction Status Date / Time amlodipine besylate AdvReac extreme Verified 05/31/22 06:53 [From Norvasc] anxiety amoxicillin trihydrate AdvReac Nausea & Verified 05/31/22 06:53 [From Augmentin] Vomiting & Diarrhea potassium clavulanate AdvReac Nausea & Verified 05/31/22 06:53 [From Augmentin] Vomiting & Diarrhea Physical Examination Gen: AOx3, NAD VSS stable at this time Integument: No obvious open lesions or sores are visualized throughout the cervical, thorac ic, lumbar spine. No obvious areas of soft tissue swelling Palpation: No significant tenderness with palpation is present throughout the cervical, thoracic or lumbar spine in the midline or paraspinal region ROM: Range of motion in all extremities is limited. He demonstrates decent muscle activation with bilateral shoulder elevation along with elbow extension and flexion. He is very limited with wrist extension, wrist flexion and finger intrinsics of the bilateral upper extremities. The right lower extremity he does affect his quads minimally, knee extension, knee flexion, plantar flexion, dorsiflexion are very limited. The left lower extremity he is able to actively flex the hip with minimal difficulty, the knee is better on the left than the right, plantarflexion and dorsiflexion are limited Sensory Exam: [place] exam to touch is intact C5-T1, vague numbness throughout the bilateral upper extremity [place] exam to touch is intact L2-S1, vague numbness throughout the bilateral lower extremities Motor: 3+5 strength bilateral upper extremities with shoulder elevation 2/5 strength in the left upper extremity with elbow extension, elbow flexion, wrist extension, wrist flexion, assistant strength coach. 15 strength in the right upper extremity with elbow extension, elbow flexion, wrist extension, wrist flexion, assistant strength coach 3+/5 strength in left lower extremity with hip flexion, knee extension, knee flexion 2/5 strength in the left lower extremity with plantar flexion, dorsiflexion, EHL, FHL Muscle strengthening of the right lower extremity was not assessed Reflexes: Negative Alvino's, negative clonus bilaterally Results - Labs Labs: Abnormal Lab Results - Last 24 Hours (Table) 05/31/22 05/31/22 Range/Units : 07: Plt Count 146 L (150-450) k/uL Lymphocytes # 0.7 L (1.0-4.8) k/uL Potassium 3.4 L (3.5-5.1) mmol/L Carbon Dioxide 31 H (22-30) mmol/L Glucose 129 H (74-99) mg/dL H & H 05/31/22 Range/Units 07: Hgb 16.0 (13.0-17.5) gm/dL Hct 43.9 (39.0-53.0) % Coagulation 05/31/22 Range/Units 07: INR 0.9 (<1.2) Result Diagrams: 05/31/22 07:05/31/22 07:22 Assessment and Plan Assessment: Bilateral upper extremity weakness Bilateral lower extremity weakness Back pain Plan: Imaging: Images and reports were reviewed of the cervical, thoracic and lumbar spine were reviewed. No acute osseous abnormality is noted. Degenerative changes noted throughout the lumbar spine with multilevel lumbar spondylosis and facet arthropathy. Plan: I was able to discuss the case, this including both physical exam findings and imaging studies with attending Dr. Abrams. We are awaiting MRI results of the cervical, thoracic and lumbar spine. Recommending adding brain MRI to ordered scans Other chief medical director and recommendations Recommendations to follow after review the scans Time with Patient: Less than 30
--- NOTE | 2022-05-31 13:40 | P.CNPUL ---
History of Present Illness Consult date: 05/31/22 Requesting physician: Nickolas López Reason for consult: other (Critical care management) Chief complaint: Neck, right scapula, right arm and lower extremity weakness History of present illness: Physical very pleasant 76-year-old male patient with history of gastroesophageal reflux disease, hypertension, Previous back surgery in . He presented to the emergency room early this morning with symptoms of back pain. Initially the pain started around 5:30 in the morning. He had discomfort in his right arm. He has discomfort was near the scapula on the right side as well. He felt his right arm may be a little weak. He wasn't having difficulty with ambulation initially but by the time he got to the emergency room he was having some trouble walking. His right lower extremity was quite weak. Computed tomography scan of the brain revealed age-related atrophic and chronic small vessel ischemic changes without acute intracranial process. CT angiogram revealed no flow-limiting stenosis in the bilateral carotid bifurcations. Normal nenana of [place]. Ultrasound of the aorta revealed normal findings with no diagnostic aneurysm. Computed tomography scan of the cervical thoracic and lumbar spine revealed mild chronic changes including degenerative disc changes throughout the spinal column and lower lumbar spinal foraminal narrowing. No discrete abnormality to account for the patient's symptoms. MRI is recommended. White count 4.5. Hemoglobin 16.0. Platelets were 26. INR 0.9. D-dimer 0.48. Sodium 139. Potassium 3.4. BUN 18. Creatinine 0.83. Glucose 129. Troponin negative 1. Lactic acid 1.4. AST 37. ALT 36. He has been seen by both neurology and orthopedics. The patient was seen and evaluated in the emergency department. He is currently awake and alert in no acute distress. Maintaining good O2 saturations in the 90s on room air. Chest x-ray revealed no acute pulmonary process. He does have ongoing weakness in the bilateral upper and lower extremities. MRI of the cervical and thoracic spine are pending. Review of Systems REVIEW OF SYSTEMS: CONSTITUTIONAL: Denies any recent significant weight loss or weight gain. EYES: Denies change in vision. EARS, NOSE, MOUTH, THROAT: Denies headaches, denies sore throat. CARDIOVASCULAR: Denies chest pain, palpitations or syncopal episodes. RESPIRATORY: Denies shortness of breath, cough, congestion or hemoptysis. GASTROINTESTINAL: Denies change in appetite, denies abdominal pain GENITOURINARY: Denies hematuria, denies infections. MUSKULOSKELETAL: Bilateral upper and lower extremity weakness. INTEGUMENTARY: Denies rash, denies eczema. NEUROLOGICAL: Bilateral upper and lower extremity weakness. Denies recent memory loss, no recent seizure activity. PSYCHIATRIC: Denies anxiety, denies depression. HEMATOLOGIC/LYMPHATIC: Denies anemia, denies enlarged lymph nodes. Past Medical History Past Medical History: GERD/Reflux, Hypertension Additional Past Medical History / Comment(s): diarrhea, sometimes bloody mucus, abd. 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 chisel worker, REM sleeping disorder History of Any Multi-Drug Resistant Organisms: None Reported Past Surgical History: Back Surgery, Hernia Repair, Prostate Surgery Additional Past Surgical History / Comment(s): TURP in 2014 Past Anesthesia/Blood Transfusion Reactions: Previous Problems w/ Anesthesia, Postoperative Nausea & Vomiting (PONV) Additional Past Anesthesia/Blood Transfusion Reaction / Comment(s): slow to wake up w/TURP Past Psychological History: No Psychological Hx Reported Smoking Status: Never smoker Past Alcohol Use History: Rare Past Drug Use History: None Reported - Past Family History Father Family Medical History: Cancer Sister(s) Family Medical History: Cancer Medications and Allergies Home Medications Medication Instructions Recorded Confirmed Type clonazePAM [KlonoPIN] 0.5 mg PO HS 07/28/15 05/31/22 History lisinopriL [Prinivil] 20 mg PO DAILY 07/28/15 05/31/22 History Cholecalciferol (Vitamin D3) 75 mcg PO DAILY 05/31/22 05/31/22 History [Vitamin D3 (3000 Iu)] Famotidine [Pepcid] 20 mg PO AC-BID 05/31/22 05/31/22 History Mesalamine [Lialda] 2.4 gm PO DAILY 05/31/22 05/31/22 History Multivitamins, Thera [Multivitamin 1 tab PO DAILY 05/31/22 05/31/22 History (formulary)] Potassium Chloride 10 meq PO DAILY 05/31/22 05/31/22 History Saw [place] 500 mg PO DAILY 05/31/22 05/31/22 History Vitamin B Complex 1 cap PO DAILY 05/31/22 05/31/22 History Allergies Allergy/AdvReac Type Severity Reaction Status Date / Time amlodipine besylate AdvReac extreme Verified 05/31/22 06:53 [From Norvasc] anxiety amoxicillin trihydrate AdvReac Nausea & Verified 05/31/22 06:53 [From Augmentin] Vomiting & Diarrhea potassium clavulanate AdvReac Nausea & Verified 05/31/22 06:53 [From Augmentin] Vomiting & Diarrhea Physical Exam Vitals: Vital Signs Temp Pulse Pulse Resp BP BP Pulse Ox 05/31/22 12:54 60 05/31/22 12:00 60 16 199/79 99 05/31/22 11:45 195/81 05/31/22 11:24 98.4 F 53 L 18 204/90 96 05/31/22 11:16 57 L 18 204/90 98 05/31/22 09:30 60 18 200/93 98 05/31/22 09:15 59 L 18 198/168 98 05/31/22 09:00 56 L 18 193/84 98 05/31/22 08:45 52 L 18 179/85 97 05/31/22 08:30 60 18 165/87 98 05/31/22 08:15 58 L 18 161/80 98 05/31/22 08:00 58 L 18 163/83 98 05/31/22 07:45 54 L 18 202/92 98 05/31/22 07:00 74 18 213/112 100 05/31/22 06:51 97.8 F 70 18 211/96 99 Intake and Output 05/30/22 05/31/22 05/31/22 22:59 06:59 14:59 Other: Voiding Method Indwelling Catheter Weight 72.575 kg GENERAL EXAM: Alert, pleasant 76-year-old male patient, on room air, comfortable in no apparent distress. HEAD: Normocephalic. EYES: Normal reaction of pupils, equal size. NOSE: Clear with pink turbinates. THROAT: No erythema or exudates. NECK: No masses, no JVD. CHEST: No chest wall deformity. LUNGS: Equal air entry with no crackles, wheeze, rhonchi or dullness. CVS: S1 and S2 normal with no audible murmur, regular rhythm. ABDOMEN: No hepatosplenomegaly, normal bowel sounds, no guarding or rigidity. SPINE: No scoliosis or deformity SKIN: No rashes CENTRAL NERVOUS SYSTEM: Bilateral upper and lower extremity weakness. EXTREMITIES: Bilateral upper and lower extremity weakness There is no peripheral edema. No clubbing, no cyanosis. Peripheral pulses are intact. Results - Laboratory Findings CBC and BMP: 05/31/22 07:05/31/22 07:22 PT/INR, D-dimer PT 10.3 sec (9.0-12.0) 05/31/22 07:22 INR 0.9 (<1.2) 05/31/22 07: D-Dimer 0.48 mg/L FEU (<0.60) 05/31/22 07:22 Abnormal lab findings: Abnormal Labs 05/31/22 05/31/22 07: 07:22 Plt Count 146 L Lymphocytes # 0.7 L Potassium 3.4 L Carbon Dioxide 31 H Glucose 129 H - Diagnostic Findings Chest x-ray: image reviewed Assessment and Plan Assessment: Acute onset of progressive bilateral upper and lower extremity weakness of unclear etiology. Computed tomography scan of the brain revealed no acute abnormalities. Computed tomography scan of the cervical, thoracic and lumbar spine revealed degenerative changes throughout the lumbar spine with multilevel lumbar spondylosis and facet arthroplasty but no acute osseous abnormalities. MRIs pending. History of previous back surgery back in the 1980s Hypertension Nonsmoker Plan: The patient was seen and evaluated CT scans, chest x-ray, medications and labs reviewed Progressing neurologic symptoms Seen by neurology and orthopedics May require ICU admission if symptoms progress MRIs are pending We will continue to follow and make further recommendations based on his clinical status I have personally seen and examined the patient, performed the documentation and the assessment and plan as written. Number of minutes spent on the visit: 20.
[2022-05-31 14:03] LABS: Glucose,Whole Blood 169 mg/dL (70-110)
--- NOTE | 2022-05-31 14:11 | P.HPIM ---
History of Present Illness H&P Date: 05/31/22 Chief Complaint: Right arm the leg weakness This is a 76-year-old patient who follows with Dr. Ramirez. Chronic stable medical conditions include GERD, hypertension, REM sleep disorder This morning around 5:30 AM patient woke up with pain in the medial part of the right scalpula posteriorly. Subsequent he started noticing pain in the right arm in the joints. Right arm became weak. Pain progressed to become rather significant. No fever no chills. Pain then progressed to go to the neck. was concerned about a cardiac cause brought the patient to the ER. In the parking lot when patient is walking to the hospital noted that his right leg was weak. Had to be supported. In the ER patient left leg also became weak. Became incontinent. Mata catheter was placed. Consultation to neurology, orthopedic was done. Also to sheet combining operator to move the patient to the ICU. Patient denies any fever and chills. Review of systems: GEN.: Tired EYES: None HEENT: None NECK: None RESPIRATORY: None CARDIOVASCULAR: None GASTROINTESTINAL: None GENITOURINARY: As above MUSCULOSKELETAL: None LYMPHATICS: None HEMATOLOGICAL: None PSYCHIATRY: None NEUROLOGICAL: As above Past medical history to include: GERD, hypertension,REM sleep disorder 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 . No smoking or alcohol. Physical examination: VITAL SIGNS: 97.8, 58, 18, 1 61 x 80, 98% room air GENERAL: BMI 21.7, declining but awake, anxious. EYES: Pupils equal. Conjunctiva normal. HEENT: External appearance of nose and ears normal, oral cavity grossly normal. NECK: JVD not raised; masses not palpable. HEART: First and second heart sounds are normal; no edema. LUNGS: Respiratory rate normal; clear to auscultation. ABDOMEN: Soft, nontender, liver spleen not palpable, no masses palpable. PSYCH: Alert and oriented x3; mood and affect normal. MUSCULOSKELETAL:No Clubbing/cyanosis;muscles-grossly intact NEUROLOGICAL: Cranial nerves grossly intact; no facial asymmetry, right upper extremity: 3/5. Hyperreflexic. Sensation preserved. Left lower extremity: 4/ 5. Reflexes normal. Sensation preserved right lower extremity: 3/5. Reflexes normal. Sensation preserved.. LYMPHATICS: No lymph nodes palpable in the axilla and neck INVESTIGATIONS, reviewed in the clinical context: White count 4.5 hemoglobin 16 platelets 146 potassium 3.4 BUN 18 creatinine 0.83 Troponin I less than 0.012 CT brain: Age-related atrophic and chronic small vessel ischemic changes. Chest x-ray film personally reviewed by me-unremarkable EKG tracing personally reviewed by me-sinus rhythm. Nonspecific T-wave changes. CT angiogram head and neck: Unremarkable Ultrasound duplex out of: Unremarkable CT; thoracolumbar spine showing evidence of DJD. Assessment and plan: -This patient started out with pain around the right scapula with weakness of the right upper extremity that progressed to include the neck. Subsequent the patient progressed to weakness of the right lower extremity and the left lower extremity. Also urinary incontinence. Theconglomeration of symptoms including pain, bilateral distribution asymmetric including upper and lower extremity differential includes transverse myelitis. Also reverse GB syndrome possible. MRI of the cervical thoracic spine ordered. Communicated with neurology Dr. Arredondo. Neuro checks in place.. -Essential hypertension Parenteral -GERD Pepcid -ChronicREM disorder insomnia Klonopin -Full code Neuro checks. Mata catheter. MRI of the C thoracic spine. Subcu Lovenox. Consultation to orthopedics, neurology, sheet combining operator. Care was discussed with the patient and at the bedside. Follow-up with neurology. Past Medical History Past Medical History: GERD/Reflux, Hypertension Additional Past Medical History / Comment(s): diarrhea, sometimes bloody mucus, abd. 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 edger feeder, REM sleeping disorder History of Any Multi-Drug Resistant Organisms: None Reported Past Surgical History: Back Surgery, Hernia Repair, Prostate Surgery Additional Past Surgical History / Comment(s): TURP in 2014 Past Anesthesia/Blood Transfusion Reactions: Previous Problems w/ Anesthesia, Postoperative Nausea & Vomiting (PONV) Additional Past Anesthesia/Blood Transfusion Reaction / Comment(s): slow to wake up w/TURP Past Psychological History: No Psychological Hx Reported Smoking Status: Never smoker Past Alcohol Use History: Rare Past Drug Use History: None Reported - Past Family History Father Family Medical History: Cancer Sister(s) Family Medical History: Cancer Medications and Allergies Home Medications Medication Instructions Recorded Confirmed Type clonazePAM [KlonoPIN] 0.5 mg PO HS 07/28/15 05/31/22 History lisinopriL [Prinivil] 20 mg PO DAILY 07/28/15 05/31/22 History Cholecalciferol (Vitamin D3) 75 mcg PO DAILY 05/31/22 05/31/22 History [Vitamin D3 (3000 Iu)] Famotidine [Pepcid] 20 mg PO AC-BID 05/31/22 05/31/22 History Mesalamine [Lialda] 2.4 gm PO DAILY 05/31/22 05/31/22 History Multivitamins, Thera [Multivitamin 1 tab PO DAILY 05/31/22 05/31/22 History (formulary)] Potassium Chloride 10 meq PO DAILY 05/31/22 05/31/22 History Saw [place] 500 mg PO DAILY 05/31/22 05/31/22 History Vitamin B Complex 1 cap PO DAILY 05/31/22 05/31/22 History Allergies Allergy/AdvReac Type Severity Reaction Status Date / Time amlodipine besylate AdvReac extreme Verified 05/31/22 06:53 [From Norvasc] anxiety amoxicillin trihydrate AdvReac Nausea & Verified 05/31/22 06:53 [From Augmentin] Vomiting & Diarrhea potassium clavulanate AdvReac Nausea & Verified 05/31/22 06:53 [From Augmentin] Vomiting & Diarrhea Physical Exam Vitals: Vital Signs Temp Pulse Pulse Resp BP BP Pulse Ox 05/31/22 12:54 60 05/31/22 12:00 60 16 199/79 99 05/31/22 11:45 195/81 05/31/22 11:24 98.4 F 53 L 18 204/90 96 05/31/22 11:16 57 L 18 204/90 98 05/31/22 09:30 60 18 200/93 98 05/31/22 09:15 59 L 18 198/168 98 05/31/22 09:00 56 L 18 193/84 98 05/31/22 08:45 52 L 18 179/85 97 05/31/22 08:30 60 18 165/87 98 05/31/22 08:15 58 L 18 161/80 98 05/31/22 08:00 58 L 18 163/83 98 05/31/22 07:45 54 L 18 202/92 98 05/31/22 07:00 74 18 213/112 100 05/31/22 06:51 97.8 F 70 18 211/96 99 Intake and Output 05/30/22 05/31/22 05/31/22 22:59 06:59 14:59 Other: Voiding Method Indwelling Catheter Weight 72.575 kg Results CBC & Chem 7: 05/31/22 07:22 05/31/22 07:22 Labs: Abnormal Lab Results - Last 24 Hours (Table) 05/31/22 05/31/22 Range/Units 07: 07:22 Plt Count 146 L (150-450) k/uL Lymphocytes # 0.7 L (1.0-4.8) k/uL Potassium 3.4 L (3.5-5.1) mmol/L Carbon Dioxide 31 H (22-30) mmol/L Glucose 129 H (74-99) mg/dL
[2022-05-31] MEDS ORDERED: HEPARIN SODIUM,PORCINE/PF 5,000 UNIT/0.5 ML SYRINGE SQ SCH (16:00)
--- NOTE | 2022-05-31 17:33 | MR ---
EXAMINATION TYPE: MR brain wo con DATE OF EXAM: 05/31/2022 COMPARISON: 07/06/2012 HISTORY: stroke. right ptosis with weaknesss Multiplanar multiecho imaging of the brain performed with no contrast. There is mild cerebral cortical atrophy. There is no mass effect or midline shift. Diffusion images s how no sign of an acute infarct. On the T2 and FLAIR images there is coalescent increased signal in t he periventricular white matter measuring up to 7 mm in thickness. There are scattered small high sig nal foci at the jones-white matter junction both cerebral hemispheres. Total number is more than 25 an d these measure mostly less than 3 mm. The brainstem show small areas of slight increased signal in the mandie. These measure up to 3 mm. The cerebellum is intact The sella turcica is intact. No evidence of orbital mass. There is mild thinning of the corpus callos um. IMPRESSION: No evidence of an acute infarct. Periventricular white matter signal changes likely related to microvascular ischemia. Demyelinating d isease also possible. There is progression of the white matter disease compared to old exam.
--- NOTE | 2022-05-31 19:46 | MR ---
EXAMINATION TYPE: MR cspine/tspine wo/w con DATE OF EXAM: 05/31/2022 COMPARISON: MR scan cervical spine 10/26/2012 HISTORY: Pain and weakness CONTRAST: Standard multiplanar, multisequence MRI departmental protocol images were obtained without contrast a nd with 7 mL intravenous Gadavist gadolinium contrast. The cervical vertebrae have normal alignment. Disc spaces are fairly normal. There is minimal posteri or disc bulging at C5-6. The posterior elements are intact. There is mild hypertrophic cervical facet arthropathy. Cervical cord shows a 2 mm cyst in the anterior cord at the C6 level. There is a large epidural mass in the posterior spinal canal of the lower cervical spine and upper thoracic spine that extends from the level of C5-6 disc to the T2-T3 disc. There is significant flattening of the cervic al spinal cord and anterior displacement. The mass measures up to 8.5 mm in thickness. There is no ev idence of any significant pathologic enhancement. The thoracic vertebra have normal alignment. No compression fracture. Thoracic spinal cord shows no e khushboo. There is no thoracic paraspinal mass. No pathologic enhancement of the thoracic spinal cord. IMPRESSION: Large epidural posterior nonenhancing mass in the spinal canal as above. This could be epidural hemat liborio. Hypovascular tumor mass should also be considered. Abnormality appears new compared to old exam. Minor degenerative disc posterior bulging at C4-5 and C5-6. No spinal fracture.
[2022-05-31] MEDS ORDERED: Potassium Replacement Protocol 1 EACH MISC MISCELLANE PRN (20:31)
[2022-05-31] MEDS: POTASSIUM CHLORIDE 10 MEQ in WATER FOR INJECTION 1 100ML.BAG IVPB SCH (21:21)
--- NOTE | 2022-05-31 21:40 | P.PN ---
Progress Note - Text Progress Note Date: 05/31/22 Spine Surgery Clinical and Risk Review Drew Boggs is a 76 yo male presenting for evaluation of b/l UE weakness with b/l LE weakness with acute progression today. It was my pleasure to have seen and examined Drew Boggs. In our visit today we have had a chance to go over subjective complaints, physical examination findings and treatments including the natural course history without intervention and various interventional options. 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 On physical exam, Drew Boggs demonstrates 3+/5 strength in UE and LE b/l with difficulty in coordination, inability to ambulate, bilateral hoffmans, no clonus, negative babinski b/l. He shows 3/4 DTR in UE and LE b/l. He shows intact to LT in C3-T5 and below. 2/4 distal pulses palpable. I have explained to the patient that as their condition progresses it will cause further neurological deficits and eventual paralysis. Based on the patients imaging, physical exam, and the rapid progression and disabling nature of their symptoms, at this time I recommend surgery in the form or a: EMERGENT C4-T4 d ecompression and stabilization with tumor mass removal. I discussed the risk and benefits of this procedure at length with Drew Boggs. The patient and his and son who are at bedside agreed to considered pursuing the procedure abovementioned. Prior to surgery, she should follow up with her PCP (Cardio, ID, IM etc) for clearance. Questions were invited and answered, and the patient wishes to proceed as outlined below. Currently, I am recommendin. EMERGENT C4-T4 decompression and stabilization with tumor mass removal 2. Follow up with PCP for surgical clearance 3. Review of surgical risks and benefits as well as an educational packet on the proposed surgical procedure. Risks: All surgical procedures come with inherent risks, including those related to positioning, anesthesia, intraoperative findings, and postoperative complications. It is important to understand that surgery does not come with any guarantee of a successful outcome as complications and adverse events are always possible. The patient was given a handout in office today discussing the surgical procedure and risks associated with the intervention, both of which were discussed with the patient. These risks include but are not limited to the following: * Experiencing same, different or even worse symptoms in back, neck, arms, or legs compared to before surgery. * Requiring further surgery or other forms of treatment presently or at some time in the future at same or other levels of the intended spine surgery. * On an extreme but fortunately relatively rare basis severe complication such as blindness, stroke, heart attack, temporary and/or permanent nerve injury, paralysis, coma, or may occur, sometimes without known explanation. * Surgical complications may include but are not limited to risk of infection, fluid accumulation in the surgical dissection site, including a seroma or hematoma, that requires additional surgery, wound drainage, bleeding, new numbness or weakness, vision changes/loss, spinal fluid leakage, non-healing and/or infected incision, headaches, difficulty or inability to swallow, hoarseness, hemopneumothorax, pneumothorax, impotence, retrograde ejaculation, vaginal dryness; injury to nerves, spinal cord, blood vessels, lymphatics or other vital organs (i.e., bowel injury, injury to the great vessels); heterotopic bone formation; complications related to the hardware such as screws, rods, cages including misplaced hardware, device failure, instrumentation at the wrong spine level, hardware fracture/breakage, or hardware loosening; vertebral failure of the spinal column above or below the newly placed hardware; retained surgical instrumentations or devices and the need for further surgery. * Medical risks of the planned spine surgery include but are not limited to generalized Infections to the whole body or local areas outside of the surgical site (sepsis), heart attack, bleeding, anaphylaxis, meningitis, seiz ure, epilepsy, hearing loss, burn pierce, laceration of the head or other areas of the body, bruising, hypersensitivity of the skin, bladder over distension; allergic reaction; shoulder injury related to positioning; fat, blood and air clots to other areas of the body like heart, lungs, brain; failure of internal organs such as lungs, kidneys, liver and excessive bleeding. If blood transfusions are necessary, note that transfusions may cause intolerance reactions such as anaphylaxis or other complex reactions. * Despite best efforts, the results of spine surgery might not heal in terms of bone, soft tissues such as skin, fascia, ligaments, and joints. Additionally, in order to achieve best possible results, spine surgery may be carried out beyond the initially planned levels and involve decompression, fusion including insertion of hardware at levels other than the original intended area of surgical interest change some portions of the procedure in order to ensure the best possible outcomes. * With spine surgery and spinal fusion, there are different off label uses of instrumentation (devices, implants and hardware) as well as biological substances (bone morphogenic proteins, demineralized bone matrix) as well as using extra bone from allograft sources (i.e. cadaver bone) or autograft (iliac crest bone, ribs, or the spine itself). The patient has been given information about these practices and their inherent risks and benefits. The patient has had a chance to review all the listed information, has been given print outs detailing this information, and has had all his/her questions answered to their satisfaction. It was my pleasure to have seen and examined Drew Boggs. In our visit today we have had a chance to go over my understanding of our patient's current condition, the natural course history without intervention and various interventional options. Questions were invited and answered, and the patient wishes to proceed as outlined above. I have seen and examined the patient for 25 minutes and we have spent more than 50% of the time in repeat and detailed counseling about the patient's condition, its natural course history with out and as much as can be predicted with surgery and re-review of various surgical treatment options. In conclusion, Drew Boggs and his and son in the room with him requested we proceed with the above suggested surgery and are willing to accept risks and limitations of the suggested surgery as nature of the disease process and our best attempts at treatment for the condition. Thank you again for allowing us to be part of your patient's care. Please don't hesitate to contact me if you have any further questions. Signed and authenticated by: Berny Carrero [facility] [address] [id number]
[2022-05-31] MEDS ORDERED: KETAMINE 10 MG/ML 20 ML VIAL ONE (22:01)
[2022-05-31] MEDS ORDERED: PHENYLEPHRINE-0.9% NACL SYG 1,000 MCG/10 ML SYRINGE ONE (22:01)
[2022-05-31] MEDS ORDERED: TRANEXAMIC ACID IN NACL,ISO-OS 1,000 MG/100 ML BAG ONE (22:01)
[2022-05-31] MEDS ORDERED: SUCCINYLCHOLINE CHLORIDE 200 MG/10 ML VIAL IV ONE (22:01)
[2022-05-31] MEDS ORDERED: LIDOCAINE 2% INJ 20 MG/ML (2 ML VIAL) ONE (22:01)
[2022-05-31] MEDS ORDERED: ROCURONIUM 10 MG/ML (5 ML VIAL) IV ONE (22:01)
[2022-05-31] MEDS ORDERED: PROPOFOL 10 MG/ML 20 ML VIAL IV ONE (22:01)
[2022-05-31] MEDS ORDERED: fentaNYL (PF) 50 MCG/ML 2 ML AMP ONE (22:01)
[2022-05-31] MEDS ORDERED: MIDAZOLAM 2 MG/2 ML VIAL ONE (22:01)
[2022-05-31] MEDS ORDERED: ONDANSETRON 4 MG/2 ML VIAL ONE (22:01)
[2022-05-31] MEDS ORDERED: SODIUM CHLORIDE 0.9% 100 ML with ceFAZolin 2,000 MG IV ONE ×2 (22:06)
[2022-05-31] MEDS ORDERED: IV FLUID CONTINUATION 1,000 ML IV ONE (22:06)
[2022-05-31] MEDS ORDERED: LACTATED RINGERS 1,000 ML IV ONE (22:06)
[2022-05-31] MEDS: clonazePAM 0.5 MG TAB PO SCH (22:15)
[2022-05-31] MEDS ORDERED: TRANEXAMIC ACID IN NACL,ISO-OS 1,000 MG in SALINE 1 100ML.BAG IVPB ONE ×2 (22:56→22:58)
[2022-06-01] MEDS ORDERED: LACTATED RINGERS 1,000 ML IV ONE
[2022-06-01] MEDS ORDERED: ceFAZolin 1,000 MG VIAL ONE (00:08)
[2022-06-01] MEDS ORDERED: GENTAMICIN 40 MG/ML 2 ML VIAL ONE (00:08)
[2022-06-01] MEDS ORDERED: SODIUM CHLORIDE 0.9% IRRIG 3,000 ML BAG IRRIGATION ONE (00:08)
[2022-06-01] MEDS ORDERED: ceFAZolin 3,000 MG in SODIUM CHLORIDE 0.9% IRRIGATIO 3,000 ML IRRIGATION ONE (00:08)
[2022-06-01] MEDS ORDERED: GENTAMICIN 80 MG in SODIUM CHLORIDE 0.9% 500 ML 3,000 ML IRRIGATION ONE (00:09)
[2022-06-01] MEDS ORDERED: VANCOMYCIN 1,000 MG VIAL MISCELLANE ONE (00:52)
[2022-06-01] MEDS: POTASSIUM CHLORIDE 10 MEQ in WATER FOR INJECTION 1 100ML.BAG IVPB SCH ×7 (01:32→18:36)
--- NOTE | 2022-06-01 01:40 | XR ---
EXAMINATION TYPE: XR cervical spine limited DATE OF EXAM: 06/01/2022 COMPARISON: NONE HISTORY: Spinal surgery TECHNIQUE: 6 fluoroscopic images. FINDINGS: There was 1 minute and 7 seconds fluoroscopic time recorded. A series of fluoroscopic image s show placement of rods and screws fusing posteriorly the cervical spine and upper thoracic spine at multiple levels. Images are limited to determine levels of fusion. IMPRESSION: No complicating process seen.
[2022-06-01] MEDS ORDERED: ONDANSETRON 4 MG/2 ML VIAL IVP PRN (01:44)
[2022-06-01] MEDS ORDERED: HYDROcodone/APAP 7.5-325MG 1 EACH TAB PO PRN (01:47)
[2022-06-01 02:03] LABS: Glucose,Whole Blood 101 mg/dL (70-110)
[2022-06-01] MEDS: HYDROmorphone 1 MG/ML 1 ML SYRINGE IVP PRN ×3 (02:37→09:14)
[2022-06-01] MEDS: LORazepam 1 MG/0.5 ML VIAL IV PRN ×2 (03:41→08:44)
[2022-06-01 04:04] LABS: Basophils % (A) 0 %; Eosinophils % (A) 0 %; HCT 36.9 % (39.0-53.0); HGB 13.5 gm/dL (13.0-17.5); Lymphocytes # (A) 0.4 k/uL (1.0-4.8); Lymphocytes % (A) 4 %; MCH 30.3 pg (25.0-35.0); MCHC 36.5 g/dL (31.0-37.0); Mean Platelet Volume 8.2; Monocytes # (A) 0.7 k/uL (0-1.0); Monocytes % (A) 7 %; Neutrophils # (A) 9.1 k/uL (1.3-7.7); Neutrophils % (A) 89 %; Platelet Count 128 k/uL (150-450); RBC 4.45 m/uL (4.30-5.90); RDW 12.8 % (11.5-15.5); WBC 10.2 k/uL (3.8-10.6)
[2022-06-01] MEDS: HYDROmorphone 0.5 MG/0.5 ML SYRINGE IVP PRN ×3 (04:38→22:57)
[2022-06-01 04:43] LABS: ALT 27 U/L (4-49); AST 31 U/L (17-59); African American GFR (CKD) >90 (>60 ml/min/1.73 sqM); Albumin 2.9 g/dL (3.5-5.0); Alkaline Phosphatase 62 U/L (38-126); Anion Gap 3 mmol/L; Blood Urea Nitrogen 13 mg/dL (9-20); Calcium 7.8 mg/dL (8.4-10.2); Carbon Dioxide 25 mmol/L (22-30); Chloride 106 mmol/L (98-107); Glucose 110 mg/dL (74-99); Non-African American GFR(CKD) >90 (>60 ml/min/1.73 sqM); Potassium 3.1 mmol/L (3.5-5.1); Sodium 134 mmol/L (137-145); Total Bilirubin 0.5 mg/dL (0.2-1.3)
[2022-06-01 06:09] LABS: ABG Base Excess 2.5 mmol/L; ABG HCO3 26 mmol/L (21-25); ABG PCO2 35 mmHg (35-45); ABG PH 7.48 (7.35-7.45); ABG PO2 190 mmHg (83-108); ABG TCO2 27 mmol/L (19-24); Allen Test Performed? Yes
[2022-06-01] MEDS: DEXAMETHASONE SOD PHOSPHATE 4 MG/ML 1 ML VIAL IVP SCH ×3 (06:26→18:37)
[2022-06-01] MEDS: ACETAMINOPHEN TAB 325 MG TAB PO SCH ×3 (06:26→18:53)
--- NOTE | 2022-06-01 07:06 | FL ---
Fluoroscopy History: C4-T4 DECOMPRESSION 1 MIN 7 SECONDS FLUORO
--- NOTE | 2022-06-01 07:18 | XR ---
EXAMINATION TYPE: XR chest 1V portable DATE OF EXAM: 06/01/2022 COMPARISON: NONE HISTORY: Tube placement TECHNIQUE: Frontal and lateral views of the chest are obtained. FINDINGS: Scattered senescent parenchymal changes noted. Hyperinflation compatible with COPD. Endotracheal tube is noted with its distal tip approximately 5.5 cm from the ruddy. NG tube is seen coursing into the stomach. The lungs are clear. Heart size is stable. Mediastinal structures are stable and grossly unremarkable. No evidence for hilar prominence. Patient is status post C4-T4 fusion with pedicular screws in place as well as a skin teena noted. IMPRESSION: 1. Endotracheal and NG tubes as noted without evidence for acute pulmonary disease
[2022-06-01] MEDS ORDERED: MAG HYDROX/AL HYDROX/SIMETH 30 ML CUP PO PRN (08:00)
--- NOTE | 2022-06-01 08:13 | CT ---
EXAMINATION TYPE: CT lumbar spine wo con DATE OF EXAM: 06/01/2022 5:44 AM COMPARISON: None HISTORY: POST OP, C4-T4 FUSION CT DLP: 728.2 mGycm Automated exposure control for dose reduction was used. Unenhanced CT of the lumbar spine was performed. Bone and soft tissue window settings are submitted as well as coronal and sagittal reconstructions. L1-L2: Normal disc space height. No disc herniation protrusion or central stenosis. No facet joint arthropathy. No evidence for foraminal encroachment. L2-L3: Severe degenerative disc space narrowing with ventral and dorsal spondylosis. Encapsulating sp ur on noted compatible with disc endplate complex. Effacement ventral thecal sac. Mild central stenos is suggested. Foramina are patent bilaterally. L3-L4: Mild degenerative disc space narrowing. Circumferential disc bulge greatest posteriorly. Mild effacement ventral thecal sac. Borderline to mild central stenosis suggested. Facet joint arthropathy with bilateral neural foraminal encroachment mild in degree. L4-L5: Moderate disc space narrowing with circumferential disc bulge greatest posteriorly. Facet join t arthropathy and hypertrophy of the ligamentum flavum resulting in [id number] central stenosis . Bilateral foraminal encroachment noted. L5-S1: Moderate degenerative disc disease. Posterior disc bulge. Partial encapsulating spur resulting in hard disc. Degenerative change of facet joints. Bilateral lateral recess stenosis identified as w ell as moderate bilateral neural foraminal encroachment. No evidence for fracture or malalignment. IMPRESSION: 1. Multilevel degenerative disc disease. 2. Multilevel central stenosis and foraminal encroachment as outlined above.
--- NOTE | 2022-06-01 08:42 | CT ---
EXAMINATION TYPE: CT cervical spine wo con DATE OF EXAM: 06/01/2022 COMPARISON: None HISTORY: POST OP, status post C4-T4 decompression CT DLP: 527.[address] of the cervical spine and upper thoracic spine was performed from C1 through T5. Axial, coronal and sagittal views are reviewed. Bone and soft tissue window settings are submitted. C2-3: Within normal limits. C3-4: Within normal limits. C4-5 through T4: There is been the posterior decompression procedure noted with decompressive laminec rikki at each of these levels. Bilateral pedicular screws with interconnecting component located at C6 -7. Postsurgical soft tissue changes appreciated. Overlying skin teena noted posteriorly. Epidural mass seen at the MRI is not clearly visualized at this time. Study is limited by the lack of contrast . No unusual collections are present. Postoperative alignment is near-anatomic. Scattered mild degene rative disc space narrowing seen. Endotracheal tube and NG tube are noted to be in place. IMPRESSION: 1. Postoperative decompressive surgery extending from C4 through T4 with pedicular screws in place. N ormal postoperative alignment seen. Post Surgical soft tissue changes evident. No unusual collections seen at this time.
[2022-06-01] MEDS ORDERED: SENNOSIDES-DOCUSATE SODIUM 1 EACH TAB PO PRN (09:00)
[2022-06-01] MEDS ORDERED: bisacodyL 10 MG SUPP RECTAL PRN (09:00)
[2022-06-01] MEDS ORDERED: MAGNESIUM HYDROXIDE 2,400 MG/10 ML CUP PO PRN (09:00)
[2022-06-01] MEDS ORDERED: CYCLOBENZAPRINE 5 MG TAB PO PRN (09:00)
[2022-06-01] MEDS ORDERED: NA PHOS,M-B/NA PHOS,DI-BA 133 ML ENEMA RECTAL PRN (09:00)
[2022-06-01] MEDS: CLEVIDIPINE BUTYRATE 25 MG in EMPTY BAG 1 BAG IV SCH ×2 (09:29→18:36)
[2022-06-01] MEDS: SODIUM CHLORIDE 0.9% 1,000 ML IV SCH (09:40)
--- NOTE | 2022-06-01 11:29 | P.PN ---
Subjective Progress Note Date: 06/01/22 Principal diagnosis: epidural mass/possible hematoma Physical very pleasant 76-year-old male patient with history of gastroesophageal reflux disease, hypertension, Previous back surgery in 1980s. He presented to the emergency room early this morning with symptoms of back pain. Initially the pain started around 5:30 in the morning. He had discomfort in his right arm. He has discomfort was near the scapula on the right side as well. He felt his right arm may be a little weak. He wasn't having difficulty with ambulation initially but by the time he got to the emergency room he was having some trouble walking. His right lower extremity was quite weak. Computed tomography scan of the brain revealed age-related atrophic and chronic small vessel ischemic changes without acute intracranial process. CT angiogram revealed no flow-limiting stenosis in the bilateral carotid bifurcations. Normal t[place] of [place]. Ultrasound of the aorta revealed normal findings with no diagnostic aneurysm. Computed tomography scan of the cervical thoracic and lumbar spine revealed mild chronic changes including degenerative disc changes throughout the spinal column and lower lumbar spinal foraminal narrowing. No discrete abnormality to account for the patient's symptoms. MRI is recommended. White count 4.5. Hemoglobin 16.0. Platelets were 26. INR 0.9. D-dimer 0.48. S odium 139. Potassium 3.4. BUN 18. Creatinine 0.83. Glucose 129. Troponin negative 1. Lactic acid 1.4. AST 37. ALT 36. He has been seen by both neurology and orthopedics. The patient was seen and evaluated in the emergency department. He is currently awake and alert in no acute distress. Maintaining good O2 saturations in the 90s on room air. Chest x-ray revealed no acute pulmonary process. He does have ongoing weakness in the bilateral upper and lower extremities. MRI of the cervical and thoracic spine are pending. Patient was reevaluated today on 06/01/patient is ventilated, he is on assist control rate of 16, volume 550 FiO2 40% and PEEP of 5.yesterday, his MRI of the cervical and thoracic spine was abnormal, showed evidence of an epidural mass, questionable hematoma, patient was seen by Dr. dr waller, and he underwent emergency C4T4 decompression and stabilization, and removal of tumor mass, possible hematoma.patient came back on the ventilator last night, and he is sedated, patient is not in any distress, blood pressure seems to be a bit elevated and propofol at 30 mcg/kg/m, his IV fluids at KVO. Chest x-ray this morning is basically unremarkable. Patient will be taken off propofol, will give a trial of weaning, and if tolerated, we'll proceed to extubating the patient.electrolytes are basically unremarkable, CBC is normal. ABG this morning showed a pO2 of 190 pCO2 35 pH of 7.48.renal profile is normal. Blood pressure is elevated, and I will try the patient on clevidipine drip in addition continues pain meds. Objective - Vital Signs Vital signs: Vital Signs Temp 97.9 F 06/01/22 08:00 Pulse 75 06/01/22 11:00 Resp 14 06/01/22 11:00 BP 129/61 06/01/22 10:45 Pulse Ox 96 06/01/22 11:00 FiO2 45 06/01/22 08:00 Intake & Output 05/31/22 06/01/22 06/01/22 18:59 06:59 18:59 Intake Total 240 4255.453 328.464 Output Total 240 2185 180 Balance 0 2070.453 148.464 Weight 72.575 kg 74.3 kg Intake: IV 2102 80 LR @ 20 60 Sodium Chloride 0.9% 1, 20 000 ml @ 20 mls/hr IV . Q24H [facility] Rx#:[id number] Intake, IV Titration 2153.453 248.464 Amount Clevidipine Butyrate 25 6.800 mg In Empty Bag 1 bag @ 1 MG/HR 2 mls/hr IV .Q24H [facility] Rx#:[id number] Lactated Ringers 1,000 ml 1900 @ 0 mls/hr IV .[facility] Rx#:[id number] Potassium Chloride 10 meq 100 In Water For Injection 1 100ml.bag @ 100 mls/hr IVPB Q1H [facility] Rx#: [id number] Potassium Chloride 10 meq 200 In Water For Injection 1 100ml.bag @ 100 mls/hr IVPB Q1HR [facility] Rx#: [id number] Sodium Chloride 0.9% 1, 100 20 000 ml @ 20 mls/hr IV . Q24H [facility] Rx#:[id number] propofoL 1,000 mg In 53.453 21.664 Empty Bag 1 bag @ 15 MCG/ KG/MIN 6.532 mls/hr IV . [id number] [facility] Rx#:[id number] Oral 240 Output: Drainage 100 40 Upper Back 100 40 Urine 240 1635 140 Estimated Blood Loss 450 Other: Voiding Method Indwelling Catheter Indwelling Catheter Indwelling Catheter ABP, PAP, CO, CI - Last Documented Arterial Blood Pressure 148/53 - Exam Physical Exam: Revealed 76-year-old white male intubated sedated, in no d istress. Head: Atraumatic, normocephalic. Endotracheal tube and orogastric tube are intact. HEENT:[Neck is supple.] [No neck masses.] [No thyromegaly.] [No JVD.] Chest: [Clear throughout, no crackles, no rhonchi, no wheezes.] Cardiac Exam: [Normal S1 and S2, no S3 gallop, no murmur.] Abdomen: [Soft, nontender, no megaly, no rebound, no guarding, normal bowel sounds.] Extremities: [No clubbing, no edema, no cyanosis.] Neurological Exam: cannot assess, patient is intubated and sedated on propofol. Psychiatric: Could not be assessed, patient is sedated and intubated. He is on propofol drip. Which will be discontinued shortly. Skin: No rashes. - Labs CBC & Chem 7: 06/01/22 03:47 06/01/22 03:47 Labs: Abnormal Lab Results - Last 24 Hours (Table) 05/31/22 06/01/22 06/01/22 Range/Units 14:02 03:47 03:47 Hct 36.9 L (39.0-53.0) % Plt Count 128 L (150-450) k/uL Neutrophils # 9.1 H (1.3-7.7) k/uL Lymphocytes # 0.4 L (1.0-4.8) k/uL ABG pH (7.35-7.45) ABG pO2 (83-108) mmHg ABG HCO3 (21-25) mmol/L ABG Total CO2 (19-24) mmol/L ABG O2 Saturation (94-97) % Sodium 134 L (137-145) mmol/L Potassium 3.1 L (3.5-5.1) mmol/L Creatinine 0.59 L (0.66-1.25) mg/dL Glucose 110 H (74-99) mg/dL POC Glucose (mg/dL) 169 H (70-110) mg/dL Calcium 7.8 L (8.4-10.2) mg/dL Total Protein 5.0 L (6.3-8.2) g/dL Albumin 2.9 L (3.5-5.0) g/dL 06/01/22 Range/Units 06:06 Hct (39.0-53.0) % Plt Count (150-450) k/uL Neutrophils # (1.3-7.7) k/uL Lymphocytes # (1.0-4.8) k/uL ABG pH 7.48 H (7.35-7.45) ABG pO2 190 H (83-108) mmHg ABG HCO3 26 H (21-25) mmol/L ABG Total CO2 27 H (19-24) mmol/L ABG O2 Saturation 100.0 H (94-97) % Sodium (137-145) mmol/L Potassium (3.5-5.1) mmol/L Creatinine (0.66-1.25) mg/dL Glucose (74-99) mg/dL POC Glucose (mg/dL) (70-110) mg/dL Calcium (8.4-10.2) mg/dL Total Protein (6.3-8.2) g/dL Albumin (3.5-5.0) g/dL Microbiology - Last 24 Hours (Table) 06/01/22 01:06 Fungal Culture - Preliminary Back 06/01/22 01:06 Fungal Culture - Preliminary Back 06/01/22 01:06 Wound Culture - Preliminary Back 06/01/22 01:06 Wound Culture - Preliminary Back 06/01/22 01:06 Anaerobic Culture - Preliminary Back 06/01/22 01:06 Anaerobic Culture - Preliminary Back Assessment and Plan Assessment: impression: Status post emergent C4-T4 decompression and stabilization, and removal of epidural mass/hematoma acute onset of progressive right sided weakness and bilateral neurological symptoms, with abnormal MRI of the cervical and thoracic spine, abnormalities could not be seen on CT of the cervical spine , but could be seen on MRI. Benign essential hypertension. Nonsmoker. History of chronic back pain and back surgery in 1980s. Recommendation: Continue ventilatory support for now, Discontinue propofol, awaken the patient, and give the patient a trial of weaning. If patient tolerates weaning, we'll proceed to extubation Start patient on clevidipine for poorly controlled blood pressure. continue cervical immobilization for now. GI prophylaxis. Venodyne boots for DVT prophylaxis for now, avoid anticoagulation therapy. Patient is relatively critically ill,but stable, critical care time is over 30 minutes Time with Patient: Greater than 30
[2022-06-01 11:46] LABS: Chol/HDL Ratio 3.82 Ratio; LDL Cholesterol,Calculated 72.2 mg/dL (0.0-131.0)
--- NOTE | 2022-06-01 13:04 | P.PN ---
Progress Note - Text Progress Note Date: 06/01/22 Chief Complaint: Right arm the leg weakness This is a 76-year-old patient who follows with Dr. Ramirez. Chronic stable medical conditions include GERD, hypertension, REM sleep disorder This morning around 5:30 AM patient woke up with pain in the medial part of the right scalpula posteriorly. Subsequent he started noticing pain in the right arm in the joints. Right arm became weak. Pain progressed to become rather significant. No fever no chills. Pain then progressed to go to the neck. was concerned about a cardiac cause brought the patient to the ER. In the parking lot when patient is walking to the hospital noted that his right leg was weak. Had to be supported. In the ER patient left leg also became weak. Became incontinent. Mata catheter was placed. Consultation to neurology, orthopedic was done. Also to adult educator to move the patient to the ICU. Patient denies any fever and chills. 06/01/2022: Yesterday evening cervical thoracic spine MRI showed a mass. Dr. Abrams to the patient to the OR. Formal report is pending. describes a hematoma being removed. Currently the patient ICU. Hard collar In place. Cervical drain. Lethargic. and son at the bedside. Active Medications Acetaminophen (Acetaminophen Tab 325 Mg Tab) 650 mg PO Q6HR [facility] Last Admin: 06/01/22 06:26 Dose: Not Given Hydrocodone Bitart/Acetaminophen (Hydrocodone/Apap 10-325mg 1 Each Tab) 1 each PO Q6H PRN PRN Reason: Pain Scale 7 - 10 Hydrocodone Bitart/Acetaminophen (Hydrocodone/Apap 7.5-325mg 1 Each Tab) 1 each PO Q6HR PRN PRN Reason: Pain Al Hydroxide/Mg Hydroxide (Mag Hydrox/Al Hydrox/Simeth 30 Ml Cup) 30 ml PO Q4HR PRN PRN Reason: Indigestion Balsalazide (Balsalazide Disodium 750 Mg Capsule) 2,250 mg PO TID [facility] Last Admin: 05/31/22 22:15 Dose: Not Given Bisacodyl (Bisacodyl 10 Mg Supp) 10 mg RECTAL DAILY PRN PRN Reason: Constipation Cholecalciferol (Cholecalciferol 25 Mcg (1000 Iu) Tablet) 75 mcg PO DAILY [facility] Last Admin: 05/31/22 11:12 Dose: 75 mcg Clonazepam (Clonazepam 0.5 Mg Tab) 0.5 mg PO HS [facility] Last Admin: 05/31/22 22:15 Dose: Not Given Cyclobenzaprine HCl (Cyclobenzaprine 5 Mg Tab) 5 mg PO TID PRN PRN Reason: Muscle Spasm Dexamethasone Sodium Phosphate (Dexamethasone Sod Phosphate 4 Mg/Ml 1 Ml Vial) 4 mg IVP Q6HR [facility] Last Admin: 06/01/22 06:26 Dose: Not Given Famotidine (Famotidine 20 Mg Tab) 20 mg PO BID [facility] Last Admin: 05/31/22 22:15 Dose: Not Given Hydromorphone HCl (Hydromorphone 0.5 Mg/0.5 Ml Syringe) 0.5 mg IVP Q3HR PRN PRN Reason: Moderate Pain (Scale 4 to 6) Last Admin: 06/01/22 04:38 Dose: 0.5 mg Hydromorphone HCl (Hydromorphone 1 Mg/Ml 1 Ml Syringe) 1 mg IVP Q3HR PRN PRN Reason: Severe Pain (Scale 7 to 10) Last Admin: 06/01/22 09:14 Dose: 1 mg Sodium Chloride (Saline 0.9%) 1,000 mls @ 20 mls/hr IV .Q24H [facility] Last Admin: 06/01/22 09:40 Dose: 20 mls/hr Cefazolin Sodium 2 gm/ Sodium (Chloride) 50 mls @ 100 mls/hr IVPB Q8H [facility]; Protocol Last Admin: 06/01/22 03:36 Dose: 100 mls/hr Clevidipine 25 mg/ IV Solution 50 mls @ 2 mls/hr IV .Q24H [facility]; Protocol Last Titration: 06/01/22 10:09 Dose: 4 mg/hr, 8 mls/hr Lisinopril (Lisinopril 20 Mg Tab) 20 mg PO DAILY [facility] Last Admin: 05/31/22 11:12 Dose: 20 mg Lorazepam (Lorazepam 1 Mg/0.5 Ml Vial) 1 mg IV Q4HR PRN PRN Reason: Anxiety Last Admin: 06/01/22 08:44 Dose: 1 mg Magnesium Hydroxide (Magnesium Hydroxide 2,400 Mg/10 Ml Cup) 2,400 mg PO DAILY PRN PRN Reason: Constipation Miscellaneous Information (Potassium Replacement Protocol 1 Each Misc) 1 each MISCELLANE DAILY PRN; Protocol PRN Reason: Per Protocol Multivitamins (Multivitamins, Thera 1 Each Tab) 1 each PO DAILY [facility] Last Admin: 05/31/22 11:12 Dose: 1 each Naloxone HCl (Naloxone 0.4 Mg/Ml 1 Ml Vial) 0.2 mg IV Q2M PRN PRN Reason: Opioid Reversal Ondansetron HCl (Ondansetron 4 Mg/2 Ml Vial) 4 mg IVP Q8HR PRN PRN Reason: Nausea And Vomiting Pantoprazole Sodium (Pantoprazole 40 Mg/10 Ml Vial) 40 mg IVP DAILY [facility] Potassium Chloride (Potassium Chloride Er 10 Meq Tab.Er.Prt) 10 meq PO DAILY [facility] Last Admin: 05/31/22 11:12 Dose: 10 meq Senna/Docusate Sodium (Sennosides-Docusate Sodium 1 Each Tab) 2 each PO DAILY PRN PRN Reason: Constipation Sodium Biphosphate/Sodium Phosphate (Na Phos,M-B/Na Phos,Di-Ba 133 Ml Enema) 133 ml RECTAL DAILY PRN PRN Reason: Constipation Past medical history to include: GERD, hypertension,REM sleep disorder 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 . No smoking or alcohol. Physical examination: VITAL SIGNS: 97.6, 75, 16, 1 28 x 46, 94% on 4 L GENERAL: He is reclining in bed, lethargic EYES: Pupils equal. Conjunctiva normal. HEENT: External appearance of nose and ears normal, oral cavity grossly normal. NECK: Hard collar in place with a Hemovac in place. HEART: First and second heart sounds are normal; no edema. LUNGS: Respiratory rate normal; clear to auscultation. ABDOMEN: Soft, nontender, liver spleen not palpable, no masses palpable. PSYCH: Lethargic MUSCULOSKELETAL:No Clubbing/cyanosis;muscles-grossly intact NEUROLOGICAL: Cranial nerves grossly intact; no facial asymmetry, INVESTIGATIONS, reviewed in the clinical context: 06/01/2022: WBC 10.2 hemoglobin 13.5 platelets 128 potassium 3.1 creatinine 0.59 MR C-spine T-spine: Large epidural posterior nonenhancing mass in the area of the C5-C6 up to 22-T3 disc. Significant flattening of the; spinal cord and anterior displacement. up to 8.5 mm in thickness. White count 4.5 hemoglobin 16 platelets 146 potassium 3.4 BUN 18 creatinine 0.83 Troponin I less than 0.012 CT brain: Age-related atrophic and chronic small vessel ischemic changes. Chest x-ray film personally reviewed by me-unremarkable EKG tracing personally reviewed by me-sinus rhythm. Nonspecific T-wave changes. CT angiogram head and neck: Unremarkable Ultrasound duplex out of: Unremarkable CT; thoracolumbar spine showing evidence of DJD. Assessment and plan: -Mass in the area of C5-C6-T2-T3 about 8.5 mm in thickness on MRI. Taken to the or on 05/31/[address] Abrams. Possible hematoma evacuated. Formal note pending. Wondering if this was a AV malformation that ruptured. Patient empirically on IV Ancef. No fever. No white count. -Essential hypertension -Acute metabolic encephalopathy. Multifactorial -Mild thrombocytopenia -Hypokalemia Replace potassium -GERD Pepcid -ChronicREM disorder insomnia Klonopin -Full code Hard collar. Cleviprex IV. Decadron. IV Ancef. Patient is no fever no white count. Care was discussed with the and son at the bedside. Follow
[2022-06-01] MEDS: BALSALAZIDE DISODIUM 750 MG CAPSULE PO SCH ×3 (13:07→21:02)
[2022-06-01] MEDS: CHOLECALCIFEROL 25 MCG (1000 IU) TABLET PO SCH (13:08)
[2022-06-01] MEDS: FAMOTIDINE 20 MG TAB PO SCH ×2 (13:08→20:58)
[2022-06-01] MEDS: MULTIVITAMINS, THERA 1 EACH TAB PO SCH (13:08)
[2022-06-01] MEDS: lisinopriL 20 MG TAB PO SCH (13:08)
[2022-06-01] MEDS: POTASSIUM CHLORIDE ER 10 MEQ TAB.ER.PRT PO SCH (13:09)
[2022-06-01] MEDS: PANTOPRAZOLE 40 MG/10 ML VIAL IVP SCH (13:14)
--- NOTE | 2022-06-01 13:53 | P.PN ---
Subjective Progress Note Date: 06/01/22 The patient is seen in neurologic follow-up on June 01, 2022, via teleneurology. the patient's son and are at the bedside today, at the time of the evaluation. They express concern regarding the patient's confusion. The patient did recognize his family. There is some reported movement in the right upper and lower extremities. The patient was extubated this morning at 9 AM. He is able to speak clearly. The chart is reviewed. Imaging reports are reviewed. It is noted that the patient presented to the emergency department with sudden onset right-sided weakness. The weakness initially began in the right upper extremity and progressed to involve the right lower extremity. The patient also reportedly had right-sided pain. The patient's initial head CT revealed no signs of acute hemorrhage or infarct. CT scan of the cervical spine revealed no signs of significant stenosis or fracture. There was no evidence of mass. MRI of the cervical spine however did reveal a large epidural mass/hematoma, with significant compression of the spinal cord. The patient was taken for emergency surgery. Objective - Vital Signs Vital signs: Vital Signs Temp 97.6 F 06/01/22 12:00 Pulse 75 06/01/22 12:00 Resp 14 06/01/22 11:00 BP 126/60 06/01/22 11:45 Pulse Ox 94 L 06/01/22 12:00 FiO2 45 06/01/22 08:00 Intake & Output 05/31/22 06/01/22 06/01/22 18:59 06:59 18:59 Intake Total 240 4255.453 408.464 Output Total 240 2185 310 Balance 0 2070.453 98.464 Weight 72.575 kg 74.3 kg Intake: IV 2102 160 LR @ 20 100 Sodium Chloride 0.9% 1, 60 000 ml @ 20 mls/hr IV . Q24H [facility] Rx#:[id number] Intake, IV Titration 2153.453 248.464 Amount Clevidipine Butyrate 25 6.800 mg In Empty Bag 1 bag @ 1 MG/HR 2 mls/hr IV .Q24H [facility] Rx#:[id number] Lactated Ringers 1,000 ml 1900 @ 0 mls/hr IV .[facility] Rx#:[id number] Potassium Chloride 10 meq 100 In Water For Injection 1 100ml.bag @ 100 mls/hr IVPB Q1H [facility] Rx#: [id number] Potassium Chloride 10 meq 200 In Water For Injection 1 100ml.bag @ 100 mls/hr IVPB Q1HR [facility] Rx#: [id number] Sodium Chloride 0.9% 1, 100 20 000 ml @ 20 mls/hr IV . Q24H [facility] Rx#:[id number] propofoL 1,000 mg In 53.453 21.664 Empty Bag 1 bag @ 15 MCG/ KG/MIN 6.532 mls/hr IV . [id number] [facility] Rx#:[id number] Oral 240 Output: Drainage 100 110 Upper Back 100 110 Urine 240 1635 200 Estimated Blood Loss 450 Other: Voiding Method Indwelling Catheter Indwelling Catheter Indwelling Catheter ABP, PAP, CO, CI - Last Documented Arterial Blood Pressure 128/46 - Exam Gen.: The patient is supine in the bed. He is in no acute distress. He is well-nourished. HEENT: Head is atraumatic, normocephalic. Fundus not visualized. There is no scleral icterus. Mucous membranes are dry. Neck: There is a hard cervical collar in place Heart: Regular rate and rhythm Neurological examination Mental status: The patient is drowsy. He is able to state his name and date of . His speech is clear. Cranial nerves: Pupils are equal and reactive. There is slight flattening of the right nasolabial fold. There is decreased elevation of the right eyebrow. Tongue protrudes midline. 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 The patient is able to wiggle all toes and both feet. - Labs CBC & Chem 7: 06/01/22 03:47 06/01/22 03:47 Labs: Abnormal Lab Results - Last 24 Hours (Table) 05/31/22 06/01/22 06/01/22 Range/Units 14:02 03:47 03:47 Hct 36.9 L (39.0-53.0) % Plt Count 128 L (150-450) k/uL Neutrophils # 9.1 H (1.3-7.7) k/uL Lymphocytes # 0.4 L (1.0-4.8) k/uL ABG pH (7.35-7.45) ABG pO2 (83-108) mmHg ABG HCO3 (21-25) mmol/L ABG Total CO2 (19-24) mmol/L ABG O2 Saturation (94-97) % Sodium (137-145) mmol/L Potassium (3.5-5.1) mmol/L Creatinine (0.66-1.25) mg/dL Glucose (74-99) mg/dL POC Glucose (mg/dL) 169 H (70-110) mg/dL Calcium (8.4-10.2) mg/dL Total Protein (6.3-8.2) g/dL Albumin (3.5-5.0) g/dL HDL Cholesterol 34.60 L (40.00-60.00) mg/dL 06/01/22 06/01/22 Range/Units 03:47 06:06 Hct (39.0-53.0) % Plt Count (150-450) k/uL Neutrophils # (1.3-7.7) k/uL Lymphocytes # (1.0-4.8) k/uL ABG pH 7.48 H (7.35-7.45) ABG pO2 190 H (83-108) mmHg ABG HCO3 26 H (21-25) mmol/L ABG Total CO2 27 H (19-24) mmol/L ABG O2 Saturation 100.0 H (94-97) % Sodium 134 L (137-145) mmol/L Potassium 3.1 L (3.5-5.1) mmol/L Creatinine 0.59 L (0.66-1.25) mg/dL Glucose 110 H (74-99) mg/dL POC Glucose (mg/dL) (70-110) mg/dL Calcium 7.8 L (8.4-10.2) mg/dL Total Protein 5.0 L (6.3-8.2) g/dL Albumin 2.9 L (3.5-5.0) g/dL HDL Cholesterol (40.00-60.00) mg/dL Microbiology - Last 24 Hours (Table) 06/01/22 01:06 Fungal Culture - Preliminary Back 06/01/22 01:06 Fungal Culture - Preliminary Back 06/01/22 01:06 Wound Culture - Preliminary Back 06/01/22 01:06 Wound Culture - Preliminary Back 06/01/22 01:06 Anaerobic Culture - Preliminary Back 06/01/22 01:06 Anaerobic Culture - Preliminary Back Assessment and Plan Assessment: 1. 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 MRI brain reveals no evidence of acute infarct or mass. 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 Reported history of lumbar spine surgery Plan: 1. Agree with taper of sedative medications as tolerated 2. PT and OT consultations when okay with neurosurgery 3. Monitor for signs of the patient being unable to fully close his right eye, which may be seen in bells palsy and would require eyedrops, taping of the eyelid closed at night for protection of cornea No further neurologic intervention is indicated at this time. Neurology will sign off. Please call with questions or concerns Time with Patient: Less than 30 (Spent 15 minutes examining the patient in the intensive care unit. Another 10 minutes spent reviewing documentation, labs and preparing this note)
[2022-06-01] MEDS ORDERED: HYDROmorphone 0.5 MG/0.5 ML SYRINGE IVP PRN (14:15)
--- NOTE | 2022-06-01 14:17 | P.PN ---
Subjective Progress Note Date: 06/01/22 Principal diagnosis: Status post C4-T4 decompression with posterior lateral stabilization patient was evaluated at bedside, Cortes morales present. Patient is currently in the ICU. Patient was extubated earlier this morning. He has been very somnolent and confused since being extubated. He is sleeping and must stand. He was easily awoken elbow, he didn't answer most my questions accurately. Utilizing IV medication at this time, patient had a very difficult time with s wallowing. Objective - Vital Signs Vital signs: Vital Signs Temp 97.6 F 06/01/22 12:00 Pulse 77 06/01/22 13:30 Resp 22 06/01/22 13:30 BP 142/65 06/01/22 13:30 Pulse Ox 98 06/01/22 13:30 FiO2 45 06/01/22 08:00 Intake & Output 05/31/22 06/01/22 06/01/22 18:59 06:59 18:59 Intake Total 240 4255.453 408.464 Output Total 240 2185 310 Balance 0 2070.453 98.464 Weight 72.575 kg 74.3 kg Intake: IV 2102 160 LR @ 20 100 Sodium Chloride 0.9% 1, 60 000 ml @ 20 mls/hr IV . Q24H [facility] Rx#:[id number] Intake, IV Titration 2153.453 248.464 Amount Clevidipine Butyrate 25 6.800 mg In Empty Bag 1 bag @ 1 MG/HR 2 mls/hr IV .Q24H [facility] Rx#:[id number] Lactated Ringers 1,000 ml 1900 @ 0 mls/hr IV .[facility] Rx#:[id number] Potassium Chloride 10 meq 100 In Water For Injection 1 100ml.bag @ 100 mls/hr IVPB Q1H [facility] Rx#: [id number] Potassium Chloride 10 meq 200 In Water For Injection 1 100ml.bag @ 100 mls/hr IVPB Q1HR [facility] Rx#: [id number] Sodium Chloride 0.9% 1, 100 20 000 ml @ 20 mls/hr IV . Q24H [facility] Rx#:[id number] propofoL 1,000 mg In 53.453 21.664 Empty Bag 1 bag @ 15 MCG/ KG/MIN 6.532 mls/hr IV . [id number] [facility] Rx#:[id number] Oral 240 Output: Drainage 100 110 Upper Back 100 110 Urine 240 1635 200 Estimated Blood Loss 450 Other: Voiding Method Indwelling Catheter Indwelling Catheter Indwelling Catheter ABP, PAP, CO, CI - Last Documented Arterial Blood Pressure 132/49 - Exam General orthopedic exam: Physical exam was very limited due to patient's current state. Patient was able to lift the right arm at the shoulder level, bend and extend the elbow and also extend and flex the wrist. Left upper extremity motion was also improved since surgery. Bilateral lower extremities were very difficult to examine due to his medical state, he was able to wiggle all the toes, plantar flexion and dorsifl exion were intact Patient is utilizing the rigid collar at this time, there is no obvious body drainage noted on the bandage at this time More detailed exam was patient's medical status improves - Labs CBC & Chem 7: 06/01/22 03:47 06/01/22 03:47 Labs: Abnormal Lab Results - Last 24 Hours (Table) 06/01/22 06/01/22 06/01/22 Range/Units 03:47 03:47 03:47 Hct 36.9 L (39.0-53.0) % Plt Count 128 L (150-450) k/uL Neutrophils # 9.1 H (1.3-7.7) k/uL Lymphocytes # 0.4 L (1.0-4.8) k/uL ABG pH (7.35-7.45) ABG pO2 (83-108) mmHg ABG HCO3 (21-25) mmol/L ABG Total CO2 (19-24) mmol/L ABG O2 Saturation (94-97) % Sodium 134 L (137-145) mmol/L Potassium 3.1 L (3.5-5.1) mmol/L Creatinine 0.59 L (0.66-1.25) mg/dL Glucose 110 H (74-99) mg/dL Calcium 7.8 L (8.4-10.2) mg/dL Total Protein 5.0 L (6.3-8.2) g/dL Albumin 2.9 L (3.5-5.0) g/dL HDL Cholesterol 34.60 L (40.00-60.00) mg/dL 06/01/22 Range/Units 06:06 Hct (39.0-53.0) % Plt Count (150-450) k/uL Neutrophils # (1.3-7.7) k/uL Lymphocytes # (1.0-4.8) k/uL ABG pH 7.48 H (7.35-7.45) ABG pO2 190 H (83-108) mmHg ABG HCO3 26 H (21-25) mmol/L ABG Total CO2 27 H (19-24) mmol/L ABG O2 Saturation 100.0 H (94-97) % Sodium (137-145) mmol/L Potassium (3.5-5.1) mmol/L Creatinine (0.66-1.25) mg/dL Glucose (74-99) mg/dL Calcium (8.4-10.2) mg/dL Total Protein (6.3-8.2) g/dL Albumin (3.5-5.0) g/dL HDL Cholesterol (40.00-60.00) mg/dL Microbiology - Last 24 Hours (Table) 06/01/22 01:06 Fungal Culture - Preliminary Back 06/01/22 01:06 Fungal Culture - Preliminary Back 06/01/22 01:06 Wound Culture - Preliminary Back 06/01/22 01:06 Wound Culture - Preliminary Back 06/01/22 01:06 Anaerobic Culture - Preliminary Back 06/01/22 01:06 Anaerobic Culture - Preliminary Back Assessment and Plan Assessment: Postoperative day #1 status post C4-T4 decompression with posterior lateral stabilization Other medical comorbidities Plan: Pain control, due to the difficulty with swallowing, IV Tylenol was ordered. I also ordered a lower dose of Dilaudid Continue use a hard c-collar at all times, will continue to reassess dressing and drain, anticipate drain removal in the next few days along with change Continue Decadron, we'll taper follow-up and likely switched to orals this patient progresses Await culture and sensitivity along with pathology report Encourage incentive spirometer Weight-bear as tolerated with walker, rigid c-collar was in place PT/OT evaluation Other medical specialty recommendations We'll continue to follow during inpatient stay Time with Patient: Less than 30
--- NOTE | 2022-06-01 14:19 | CA ---
Transthoracic Echo Report Name: Drew Golden Age: 76 Gender: M : 1945 Exam Date: 06/01/2022 11:04 Exam Location: [place] [facility] Ht (in): 72 Wt (lb): 163 Ordering Physician: Amilcar Arredondo MD Attending/Referring Phys: Teresa Cain MD Auto Overhauler Sade Boyd RDCS Procedure CPT: Indications: stroke. with Bubble study Cardiac Hx: Technical Quality: Good Contrast 1: N/A Total Dose (mL): Contrast 2: Total Dose (mL): MEASUREMENTS (Male / Female) Normal Values 2D ECHO LV Diastolic Diameter PLAX 4.4 cm 4.2 - 5.9 / 3.9 - 5.3 cm LV Systolic Diameter PLAX 4.8 cm IVS Diastolic Thickness 1.2 cm 0.6 - 1.0 / 0.6 - 0.9 cm LVPW Diastolic Thickness 1.6 cm 0.6 - 1.0 / 0.6 - 0.9 cm LV Relative Wall Thickness 0.6 RV Internal Dim ED PLAX 3.1 cm LA Systolic Diameter LX 3.3 cm 3.0 - 4.0 / 2.7 - 3.8 cm M-MODE Aortic Root Diameter MM 2.8 cm LA Systolic Diameter MM 4.3 cm LA Ao Ratio MM 1.5 MV E Point Septal Separation 0.2 cm AV Cusp Separation MM 2.3 cm DOPPLER MV Area PHT 4.1 cm??? Mitral E Point Velocity 54.9 cm/s Mitral A Point Velocity 63.4 cm/s Mitral E to A Ratio 0.9 MV Deceleration Time 183.1 ms MV E' Velocity 7.3 cm/s Mitral E to MV E' Ratio 7.5 FINDINGS Left Ventricle Mildly increased septal wall thickness. Left ventricular ejection fraction is estimated at 50-55 %. Right Ventricle Normal right ventricular size and function. Right ventricular systolic pressure within normal limits. Right Atrium Normal right atrial size. Left Atrium Normal left atrial size. BUBBLE STUDY PERFORMED NO CROSSING NOTED. Mitral Valve Structurally normal mitral valve. Mild mitral regurgitation. Aortic Valve Trileaflet aortic valve. Tricuspid Valve Structurally normal tricuspid valve. Mild tricuspid regurgitation. Pulmonic Valve Structurally normal pulmonic valve. Pericardium Echo free space anterior to the right ventricle likely represents a fat pad. Aorta Normal size aortic root and proximal ascending aorta. CONCLUSIONS Left ventricular ejection fraction is estimated at 50-55 %. Mildly increased septal wall thickness. Mild mitral regurgitation. Negative bubble study Previewed by: Dr. Arjun Quintanilla DO (Electronically Signed) Final Date: 01 June 2022 14:18
[2022-06-01] MEDS ORDERED: ARTIFICIAL TEARS-HYPROMELLOSE DROPS 15 ML BTL BOTH EYES PRN (15:53)
[2022-06-01] MEDS: ACETAMINOPHEN IV (For NPO) 1,000 MG in EMPTY BAG 1 BAG IVPB SCH ×2 (16:22→21:00)
--- NOTE | 2022-06-01 18:03 | P.OP ---
Date of Procedure: 05/31/22 Preoperative Diagnosis: 1. C5-T4 posterior epidural space occupying lesion with severe stenosis 2. Progressive UE and LE weakness, acute 3. Myelopathy Postoperative Diagnosis: 1. C5-T4 posterior epidural space occupying lesion with severe stenosis, hematoma [id number]. 2. Progressive UE and LE weakness, acute 3. Myelopathy Procedure(s) Performed: 1. Laminectomy for Epidural hematoma mass excision C4-T4 with biopsy (80783, 29858, 99856) 2. C4-T4 posteriolateral instrumented fusion (51883, 86022, 40742p3) 3. Segmental instrumentation C4-T4 (02803) 4. C4-T4 bilateral laminectomy, medial facetectomy and foraminotonies (97529, 13831, 63282u5) Implants: -[place] posterior cervical system rods and screws. 3.5 LM screws. 5.0 pedicle -MagnatOs -DBM, Joslyn, Autograft Anesthesia: GETA Surgeon: Berny Abrams Bankman #1: Augusto Medeiros (Was present and assisted in all aspects of the case from positioning to closure dressing and brace placement. ) Estimated Blood Loss (ml): 350 IV fluids (ml): 1,200 Urine output (ml): 430 Pathology: other Condition: stable Disposition: PACU Indications for Procedure: Drew Boggs is a 76 yo male presenting for evaluation of b/l UE weakness with b/l LE weakness with acute progression today. It was my pleasure to have seen and examined Drew Boggs. In our visit today we have had a chance to go over subjective complaints, physical examination findings and treatments including the natural course history without intervention and various interventional options. 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 On physical exam, Drew Boggs demonstrates 3+/5 strength in UE and LE b/l with difficulty in coordination, inability to ambulate, bilateral hoffmans, no clonus, negative babinski b/l. He shows 3/4 DTR in UE and LE b/l. He shows intact to LT in C3-T5 and below. 2/4 distal pulses palpable. I have explained to the patient that as their condition progresses it will cause further neurological deficits and eventual paralysis. Based on the patients imaging, physical exam, and the rapid progression and disabling nature of their symptoms, at this time I recommend surgery in the form or a: EMERGENT C4-T4 decompression and stabilization with tumor mass removal. I discussed the risk and benefits of this procedure at length with Drew Boggs. The patient and his and son who are at bedside agreed to considered pursuing the procedure abovementioned. Prior to surgery, she should follow up with her PCP (Cardio, ID, IM etc) for clearance. Questions were invited and answered, and the patient wishes to proceed as outlined below. Currently, I am recommendin. EMERGENT C4-T4 decompression and stabilization with tumor mass removal Description of Procedure: The patient was seen and examined in the preoperative area. All preoperative protocols were followed. Informed consent was obtained risks and benefits of the procedure were discussed at length. Risks including bleeding infection damage to the surrounding tissue and risk of reoperation were discussed with the patient. Risk of anesthesia up to and including was a discussed with the patient. These are outlined in the risk review. They were willing to accept these risks and all of the risks of surgery. The patient was given a weight- based dose of antibiotics in the form of 2 g Ancef. The patient was seen and evaluated by the anesthesia team who deemed them fit for surgery. The site was marked, the patient was willing to proceed with the procedure. The patient was transferred to the operative suite by the Department of anesthesia. They were then drifted off to sleep by the department anesthesia and GETA was performed. The patient tolerated this well. [Mata catheter was placed by nursing staff, atraumatically. Once confirmation of lines and ventilation Prakash head clamp was placed and the patient was transferred to a prone Stephon table very carefully and the head secured. Xray was brought in an confirmed good position of head an neck. All bony prominences including wrists, elbows, axilla, chest, hips, and thighs, and feet were padded very well. Special attention was paid to the genitalia and these were padded accordingly. SCDs were placed on bilateral lower extremities and were connected. Arms were well padded and placed tucked at his side well padded thumbs down. Once in position, again we confirmed good ventilation capabilities and that lines were running appropriately. The patient's cervicothoracic spine was then exposed. 1010s were placed outlining the incision site. Standard alcohol was used to clean the incision site and allowed to dry. C-arm was used to biomark the patient and confirm level for incision which was marked with a skin marker. Operative briefing was performed with all teams and everyone in agreement to proceed. The patient was then prepped and draped in a normal sterile fashion. Timeout was then performed and all parties were in agreement with the procedure to be performed. Midline skin incision was made over the previously biomarked area and dissection taken down midline. Facia was identified over the SP of C4-T4 and midline faciiotomy was made. Superiosteal dissection taken down over lamina and lateral masses, facet joints and TP of C4-T4. Lateral C arm used to confirm levels for operation. Once confirmed. Lateral mass screws were placed using lateral imaging. Prasanth used to make airplane patrol pilot hole followed by drill, feeler and then screw. Screws were placed at C4-6 bilateral. Then under Ap and Lateral imaging pedicular screws were placed at T1-4 bilateral using a freehand technique. Woodward used to make airplane patrol pilot hole followed by pedicle finder, feeler, tap, feeler then screw placement. Once screws were placed they were confirmed to be in good position under AP and lateral images. IONM remained stable. We then sized cut and placed rods in screws. The rods were secured with set screws and final tightened into place. Woodward was then used to create wide bilateral laminectomy, medial facetectomy and kerrison used to complete foraminotomies from C4-T4. The lamina was removed entirely and this revealed a massive epidural hematoma eccentric to the right side measuring around 10cm in cranial caudal dimention, 5 cm in M/L dimention and raised about 2cm from the cord. This was causing severe compression. The gelatinous parts of this were taken as samples 2 for pathology for identification and 3 for lab to r/o infective process. The entirety of the hematoma was removed. It appeared to be coming from the foramin of C5-7 on the right side and wide foraminotomies were done here with kerrison rongure to investigate. There was no active bleeding from these areas. We then placed hemostatic agents around the entire cord which had once again begin to pulsate normally. IONM remained stable. We then irrigated the wound copiously with 3L ancef solution, 3L gentamycin solution and 3L NSS. Again the area was inspected and there was no active bleeding and the cord had been completely decompressed with good return of pulsations. Two crosslinks were selected and placed and final tightened. Facet joints and TP were burred from C4-T4. MagnatOs, DBM and Autograft were then placed in facets joints and posterolateral gutters for fusion. These were covered with surgicel. Dura was covered with surgicel as well. There again was no active bleeding. Deep drain was placed. Vancomycin powder was placed deep and we proceeded with layered closure. Muscle layer was closed with 0 PDS, facial layer closed with #1 PDS. Deep subq closed with 0 Vicryl. Superficial subq closed with 2-0 vicryl and skin closed with skin teena. Drain was sewn in and connected and had good suction. Wound edges approximated well. Wound was cleaned with ETOH and dried and dressed sterrilly with Optifoam, 4x4 drain sponge, tegaderm. The patient was then carefully transferred from the [facility] table and [place] to his ICU bed atraumatically. Prakash was removed, pin sites inspected and were dry. Hard collar was placed on the pt and he was transferred to the ICU by anesthesia, intubated for planned prolonged recovery, in stable condition having tolerated the procedure well with no complications. Drain continued to hold suction. He will be in ICU and SBT tommorrow AM. BP controlls overnight with MAP goals 75 and above. Neuro checks and steroid administration.
[2022-06-01] MEDS: clonazePAM 0.5 MG TAB PO SCH (20:58)
[2022-06-02] MEDS: DEXAMETHASONE SOD PHOSPHATE 4 MG/ML 1 ML VIAL IVP SCH ×6 (00:25→23:23)
[2022-06-02] MEDS: ACETAMINOPHEN TAB 325 MG TAB PO SCH ×5 (00:25→23:23)
[2022-06-02] MEDS: ACETAMINOPHEN IV (For NPO) 1,000 MG in EMPTY BAG 1 BAG IVPB SCH ×2 (02:28→08:20)
[2022-06-02] MEDS: HYDROmorphone 0.5 MG/0.5 ML SYRINGE IVP PRN ×4 (02:30→14:01)
[2022-06-02 03:38] LABS: Basophils % (A) 0 %; Eosinophils % (A) 0 %; HGB 14.1 gm/dL (13.0-17.5); Lymphocytes # (A) 0.2 k/uL (1.0-4.8); Lymphocytes % (A) 2 %; MCH 30.3 pg (25.0-35.0); MCHC 36.1 g/dL (31.0-37.0); MCV 84.1 fL (80.0-100.0); Monocytes # (A) 0.7 k/uL (0-1.0); Monocytes % (A) 6 %; Neutrophils # (A) 9.6 k/uL (1.3-7.7); Neutrophils % (A) 91 %; Platelet Count 135 k/uL (150-450); RBC 4.64 m/uL (4.30-5.90); RDW 12.7 % (11.5-15.5); WBC 10.6 k/uL (3.8-10.6)
[2022-06-02 03:47] LABS: African American GFR (CKD) >90 (>60 ml/min/1.73 sqM); Anion Gap 4 mmol/L; Blood Urea Nitrogen 14 mg/dL (9-20); Calcium 8.2 mg/dL (8.4-10.2); Carbon Dioxide 28 mmol/L (22-30); Chloride 103 mmol/L (98-107); Glucose 132 mg/dL (74-99); Non-African American GFR(CKD) >90 (>60 ml/min/1.73 sqM); Sodium 135 mmol/L (137-145)
[2022-06-02] MEDS: CLEVIDIPINE BUTYRATE 25 MG in EMPTY BAG 1 BAG IV SCH ×2 (05:21→15:20)
[2022-06-02] MEDS: PANTOPRAZOLE 40 MG/10 ML VIAL IVP SCH (08:18)
[2022-06-02] MEDS: lisinopriL 20 MG TAB PO SCH (08:18)
--- NOTE | 2022-06-02 10:26 | P.PN ---
Subjective Progress Note Date: 06/02/22 Principal diagnosis: epidural mass/possible hematoma Physical very pleasant 76-year-old male patient with history of gastroesophageal reflux disease, hypertension, Previous back surgery in 1980s. He presented to the emergency room early this morning with symptoms of back pain. Initially the pain started around 5:30 in the morning. He had discomfort in his right arm. He has discomfort was near the scapula on the right side as well. He felt his right arm may be a little weak. He wasn't having difficulty with ambulation initially but by the time he got to the emergency room he was having some trouble walking. His right lower extremity was quite weak. Computed tomography scan of the brain revealed age-related atrophic and chronic small vessel ischemic changes without acute intracranial process. CT angiogram revealed no flow-limiting stenosis in the bilateral carotid bifurcations. Normal [place]. Ultrasound of the aorta revealed normal findings with no diagnostic aneurysm. Computed tomography scan of the cervical thoracic and lumbar spine revealed mild chronic changes including degenerative disc changes throughout the spinal column and lower lumbar spinal foraminal narrowing. No discrete abnormality to account for the patient's symptoms. MRI is recommended. White count 4.5. Hemoglobin 16.0. Platelets were 26. INR 0.9. D-dimer 0.48. S odium 139. Potassium 3.4. BUN 18. Creatinine 0.83. Glucose 129. Troponin negative 1. Lactic acid 1.4. AST 37. ALT 36. He has been seen by both neurology and orthopedics. The patient was seen and evaluated in the emergency department. He is currently awake and alert in no acute distress. Maintaining good O2 saturations in the 90s on room air. Chest x-ray revealed no acute pulmonary process. He does have ongoing weakness in the bilateral upper and lower extremities. MRI of the cervical and thoracic spine are pending. Patient was reevaluated today on 06/01/patient is ventilated, he is on assist control rate of 16, volume 550 FiO2 40% and PEEP of 5.yesterday, his MRI of the cervical and thoracic spine was abnormal, showed evidence of an epidural mass, questionable hematoma, patient was seen by Dr. dr waller, and he underwent emergency C4T4 decompression and stabilization, and removal of tumor mass, possible hematoma.patient came back on the ventilator last night, and he is sedated, patient is not in any distress, blood pressure seems to be a bit elevated and propofol at 30 mcg/kg/m, his IV fluids at KVO. Chest x-ray this morning is basically unremarkable. Patient will be taken off propofol, will give a trial of weaning, and if tolerated, we'll proceed to extubating the patient.electrolytes are basically unremarkable, CBC is normal. ABG this morning showed a pO2 of 190 pCO2 35 pH of 7.48.renal profile is normal. Blood pressure is elevated, and I will try the patient on clevidipine drip in addition continues pain meds. Reevaluated today on 06/02/22, patient tolerated extubation well over the last 24 hours, patient is on room air, and his O2 sats is 97%. Patient was noted to have increase strength in his right lower extremity and his right upper extr emity, he could raise both extremities well above the bed level. Clearly that's an improvement compared to his baseline. CBC is normal electrolytes are normal, renal profile is normal. Overall the patient is doing great, and he continues to have cervical collar in place. Objective - Vital Signs Vital signs: Vital Signs Temp 98.7 F 06/02/22 08:00 Pulse 83 06/02/22 08:30 Resp 14 06/02/22 08:30 BP 153/69 06/02/22 08:30 Pulse Ox 97 06/02/22 08:30 FiO2 45 06/01/22 08:00 Intake & Output 06/01/22 06/02/22 06/02/22 18:59 06:59 18:59 Intake Total 771.664 742.2 82.067 Output Total 970 1525 205 Balance -198.336 -782.8 -122.933 Weight 75.3 kg Intake: IV 480 680 80 ACETAMINOPHEN IV (For NPO 220 400 ) 1,000 mg In Empty Bag 1 bag @ 400 mls/hr IVPB Q6H [facility] Rx#:[id number] LR @ 20 180 240 40 Sodium Chloride 0.9% 1, 80 40 40 000 ml @ 20 mls/hr IV . Q24H [facility] Rx#:[id number] Intake, IV Titration 291.664 62.2 2.067 Amount Clevidipine Butyrate 25 50.000 62.2 2.067 mg In Empty Bag 1 bag @ 1 MG/HR 2 mls/hr IV .Q24H [facility] Rx#:[id number] Potassium Chloride 10 meq 200 In Water For Injection 1 100ml.bag @ 100 mls/hr IVPB Q1HR [facility] Rx#: [id number] Sodium Chloride 0.9% 1, 20 000 ml @ 20 mls/hr IV . Q24H [facility] Rx#:[id number] propofoL 1,000 mg In 21.664 Empty Bag 1 bag @ 15 MCG/ KG/MIN 6.532 mls/hr IV . [id number] [facility] Rx#:[id number] Output: Drainage 170 120 20 Upper Back 170 120 20 Urine 800 1405 185 Other: Voiding Method Indwelling Catheter Indwelling Catheter ABP, PAP, CO, CI - Last Documented Arterial Blood Pressure 107/64 - Exam Physical Exam: Revealed 76-year-old white male on room air, in no distress. Head: Atraumatic, normocephalic. HEENT:[Neck is supple.] [No neck masses.] [No thyromegaly.] [No JVD.] Cervical collar remains in place. Chest: [Clear throughout, no crackles, no rhonchi, no wheezes.] Cardiac Exam: [Normal S1 and S2, no S3 gallop, no murmur.] Abdomen: [Soft, nontender, no megaly, no rebound, no guarding, normal bowel jenifer nds.] Extremities: [No clubbing, no edema, no cyanosis.] Neurological Exam: Alert and oriented 3 no gross Focal deficits. Patient is regaining strength in his right lower extremity and able to raise it above the bed level. Psychiatric: Normal mood, affect and normal mental status examination. Skin: No rashes. - Labs CBC & Chem 7: 06/02/22 03:22 06/02/22 03:22 Labs: Abnormal Lab Results - Last 24 Hours (Table) 06/01/22 06/02/22 06/02/22 Range/Units 03:47 03:22 03:22 Plt Count 135 L (150-450) k/uL Neutrophils # 9.6 H (1.3-7.7) k/uL Lymphocytes # 0.2 L (1.0-4.8) k/uL Sodium 135 L (137-145) mmol/L Creatinine 0.63 L (0.66-1.25) mg/dL Glucose 132 H (74-99) mg/dL Calcium 8.2 L (8.4-10.2) mg/dL HDL Cholesterol 34.60 L (40.00-60.00) mg/dL Microbiology - Last 24 Hours (Table) 06/01/22 01:06 Gram Stain - Preliminary Back Wound Culture - Preliminary 06/01/22 01:06 Gram Stain - Preliminary Back Wound Culture - Preliminary 06/01/22 01:06 Fungal Culture - Preliminary Back 06/01/22 01:06 Fungal Culture - Preliminary Back 06/01/22 01:06 Anaerobic Culture - Preliminary Back 06/01/22 01:06 Anaerobic Culture - Preliminary Back Assessment and Plan Assessment: impression: Status post emergent C4-T4 decompression and stabilization, and removal of epidural mass/hematoma acute onset of progressive right sided weakness and bilateral neurological symptoms, with abnormal MRI of the cervical and thoracic spine, abnormalities could not be seen on CT of the cervical spine , but could be seen on MRI. Benign essential hypertension. Nonsmoker. History of chronic back pain and back surgery in 1980s. Recommendation: Continue to monitor the patient in the ICU for the next 24 hours. Ambulate patient out of bed to a bedside chair if agreeable with orthopedics on the case. Incentive spirometry. continue cervical immobilization for now. GI prophylaxis. Continue clevidipine now, restart patient on his lisinopril, may consider adding Lopressor if his blood pressure remains elevated and we can possibly discontinue clevidipine. We'll continue to monitor in the ICU for now. Time with Patient: Less than 30
[2022-06-02] MEDS: FAMOTIDINE 20 MG TAB PO SCH ×2 (10:40→20:36)
[2022-06-02] MEDS: HYDROcodone/APAP 10-325MG 1 EACH TAB PO PRN ×3 (10:42→20:36)
[2022-06-02] MEDS: SODIUM CHLORIDE 0.9% 1,000 ML IV SCH (11:01)
[2022-06-02] MEDS: BALSALAZIDE DISODIUM 750 MG CAPSULE PO SCH ×3 (11:10→22:06)
[2022-06-02] MEDS: MULTIVITAMINS, THERA 1 EACH TAB PO SCH (12:49)
[2022-06-02] MEDS: POTASSIUM CHLORIDE ER 10 MEQ TAB.ER.PRT PO SCH (12:49)
[2022-06-02] MEDS: CHOLECALCIFEROL 25 MCG (1000 IU) TABLET PO SCH (12:49)
--- NOTE | 2022-06-02 13:47 | P.PN ---
Subjective Progress Note Date: 06/02/22 Principal diagnosis: Status post C4-T4 decompression with posterior lateral stabilization Patient was evaluated at bedside, family members present. Patient is significantly improved since yesterday. His overall medical state looks improved, his mentation is significantly improved. He has noticed significant improvement with range of motion all of his extremities. Urinary catheter remains in place at this time. Discussed with the nursing staff, he is swallowing better today. The goal is to get him out of bed and into the chair. He remains in the hard cervical collar at this time. He denies any genital numbness or tingling, he denies any numbness and tingling in bilateral upper extremities. He denies any numbness or tingling in the bilateral lower extremities. Objective - Vital Signs Vital signs: Vital Signs Temp 98.7 F 06/02/22 08:00 Pulse 81 06/02/22 11:00 Resp 7 L 06/02/22 11:00 BP 150/70 06/02/22 11:00 Pulse Ox 97 06/02/22 11:00 FiO2 45 06/01/22 08:00 Intake & Output 06/01/22 06/02/22 06/02/22 18:59 06:59 18:59 Intake Total 771.664 742.2 871.467 Output Total 970 1525 530 Balance -198.336 -782.8 341.467 Weight 75.3 kg Intake: IV 480 680 260 ACETAMINOPHEN IV (For NPO 220 400 ) 1,000 mg In Empty Bag 1 bag @ 400 mls/hr IVPB Q6H [facility] Rx#:[id number] LR @ 20 180 240 140 Sodium Chloride 0.9% 1, 80 40 120 000 ml @ 20 mls/hr IV . Q24H [facility] Rx#:[id number] Intake, IV Titration 291.664 62.2 131.467 Amount Clevidipine Butyrate 25 50.000 62.2 31.467 mg In Empty Bag 1 bag @ 1 MG/HR 2 mls/hr IV .Q24H [facility] Rx#:[id number] Potassium Chloride 10 meq 200 In Water For Injection 1 100ml.bag @ 100 mls/hr IVPB Q1HR [facility] Rx#: [id number] Sodium Chloride 0.9% 1, 20 000 ml @ 20 mls/hr IV . Q24H [facility] Rx#:[id number] ceFAZolin 2 gm In Sodium 100 Chloride 0.9% 50 ml @ 100 mls/hr IVPB Q8H [facility] Rx#: [id number] propofoL 1,000 mg In 21.664 Empty Bag 1 bag @ 15 MCG/ KG/MIN 6.532 mls/hr IV . [id number] [facility] Rx#:[id number] Oral 480 Output: Drainage 170 120 20 Upper Back 170 120 20 Urine 800 1405 510 Other: Voiding Method Indwelling Catheter Indwelling Catheter ABP, PAP, CO, CI - Last Documented Arterial Blood Pressure 107/64 - Exam General orthopedic exam: Patient is utilizing the rigid collar at this time, there is no obvious body drainage noted on the bandage at this time Range of motion in all major muscle groups in the bilateral upper and lower extremities are intact. Significantly improved since his prior exams Strength testing was not assessed on exam today Compartments of the lower extremities both anterior and posterior soft and compressible. The patient's calves bilaterally are soft, no tenderness with palpation Dorsalis pedis pulses 2+ bilaterally, radial and ulnar pulses are 2+ bilaterally - Labs CBC & Chem 7: 06/02/22 03:22 06/02/22 03:22 Labs: Abnormal Lab Results - Last 24 Hours (Table) 06/02/22 06/02/22 Range/Units 03:22 03:22 Plt Count 135 L (150-450) k/uL Neutrophils # 9.6 H (1.3-7.7) k/uL Lymphocytes # 0.2 L (1.0-4.8) k/uL Sodium 135 L (137-145) mmol/L Creatinine 0.63 L (0.66-1.25) mg/dL Glucose 132 H (74-99) mg/dL Calcium 8.2 L (8.4-10.2) mg/dL Microbiology - Last 24 Hours (Table) 06/01/22 01:06 Gram Stain - Preliminary Back Wound Culture - Preliminary 06/01/22 01:06 Gram Stain - Preliminary Back Wound Culture - Preliminary 06/01/22 01:06 Fungal Culture - Preliminary Back 06/01/22 01:06 Fungal Culture - Preliminary Back 06/01/22 01:06 Anaerobic Culture - Preliminary Back 06/01/22 01:06 Anaerobic Culture - Preliminary Back Assessment and Plan Assessment: Postoperative day #2 status post C4-T4 decompression with posterior lateral stabilization Other medical comorbidities Plan: Pain control, continue oral and IV as needed Rigid c-collar at all times, we will likely remove dressing and drain tomorrow at bedside Did lower Decadron dose today to 2 mg every 6 hours, we'll likely transition to orals tomorrow Await culture and sensitivity along with pathology report Encourage incentive spirometer Weight-bear as tolerated with walker Discontinue urinary catheter on 06/03/2022 AM PT/OT evaluation Other medical specialty recommendations We'll continue to follow during inpatient stay Time with Patient: Less than 30
--- NOTE | 2022-06-02 14:12 | P.PN ---
Progress Note - Text Progress Note Date: 06/02/22 Chief Complaint: Right arm the leg weakness This is a 76-year-old patient who follows with Dr. Ramirez. Chronic stable medical conditions include GERD, hypertension, REM sleep disorder This morning around 5:30 AM patient woke up with pain in the medial part of the right scalpula posteriorly. Subsequent he started noticing pain in the right arm in the joints. Right arm became weak. Pain progressed to become rather significant. No fever no chills. Pain then progressed to go to the neck. was concerned about a cardiac cause brought the patient to the ER. In the parking lot when patient is walking to the hospital noted that his right leg was weak. Had to be supported. In the ER patient left leg also became weak. Became incontinent. Mata catheter was placed. Consultation to neurology, orthopedic was done. Also to custodial engineer to move the patient to the ICU. Patient denies any fever and chills. 06/01/2022: Yesterday evening cervical thoracic spine MRI showed a mass. Dr. Abrams to the patient to the OR. Formal report is pending. describes a hematoma being removed. Currently the patient ICU. Hard collar In place. Cervical drain. Lethargic. and son at the bedside. 06/02/2022: ICU. Patient has a Hemovac remains in place. Moving his right arm and right leg better. Mata catheter in place. Did eat some yogurt. Pain better. Pathology pending. Discussed with patient and at the bedside. Remains on Decadron. IV Ancef. Active Medications Acetaminophen (Acetaminophen Tab 325 Mg Tab) 650 mg PO Q6HR [facility] Last Admin: 06/02/22 12:57 Dose: Not Given Hydrocodone Bitart/Acetaminophen (Hydrocodone/Apap 10-325mg 1 Each Tab) 1 each PO Q6H PRN PRN Reason: Pain Scale 7 - 10 Last Admin: 06/02/22 10:42 Dose: 1 each Hydrocodone Bitart/Acetaminophen (Hydrocodone/Apap 7.5-325mg 1 Each Tab) 1 each PO Q6HR PRN PRN Reason: Pain Al Hydroxide/Mg Hydroxide (Mag Hydrox/Al Hydrox/Simeth 30 Ml Cup) 30 ml PO Q4HR PRN PRN Reason: Indigestion Artificial Tears (Artificial Tears-Hypromellose Drops 15 Ml Btl) 1 drops BOTH EYES QID PRN PRN Reason: Dry Eye(s) Balsalazide (Balsalazide Disodium 750 Mg Capsule) 2,250 mg PO TID [facility] Last Admin: 06/02/22 11:10 Dose: 2,250 mg Bisacodyl (Bisacodyl 10 Mg Supp) 10 mg RECTAL DAILY PRN PRN Reason: Constipation Cholecalciferol (Cholecalciferol 25 Mcg (1000 Iu) Tablet) 75 mcg PO DAILY [facility] Last Admin: 06/02/22 12:49 Dose: Not Given Clonazepam (Clonazepam 0.5 Mg Tab) 0.5 mg PO HS [facility] Last Admin: 06/01/22 20:58 Dose: Not Given Cyclobenzaprine HCl (Cyclobenzaprine 5 Mg Tab) 5 mg PO TID PRN PRN Reason: Muscle Spasm Dexamethasone Sodium Phosphate (Dexamethasone Sod Phosphate 4 Mg/Ml 1 Ml Vial) 2 mg IVP Q6HR [facility] Last Admin: 06/02/22 12:59 Dose: 2 mg Famotidine (Famotidine 20 Mg Tab) 20 mg PO BID [facility] Last Admin: 06/02/22 10:40 Dose: Not Given Hydromorphone HCl (Hydromorphone 0.5 Mg/0.5 Ml Syringe) 0.5 mg IVP Q3HR PRN PRN Reason: Moderate Pain (Scale 4 to 6) Last Admin: 06/02/22 14:01 Dose: 0.5 mg Hydromorphone HCl (Hydromorphone 0.5 Mg/0.5 Ml Syringe) 0.25 mg IVP Q3HR PRN PRN Reason: Severe Pain (Scale 7 to 10) Last Admin: 06/01/22 16:24 Dose: 0.25 mg Sodium Chloride (Saline 0.9%) 1,000 mls @ 20 mls/hr IV .Q24H [facility] Last Admin: 06/02/22 11:01 Dose: 20 mls/hr Cefazolin Sodium 2 gm/ Sodium (Chloride) 50 mls @ 100 mls/hr IVPB Q8H [facility]; Protocol Last Admin: 06/02/22 12:59 Dose: 100 mls/hr Clevidipine 25 mg/ IV Solution 50 mls @ 2 mls/hr IV .Q24H [facility]; Protocol Last Titration: 06/02/22 12:45 Dose: 0 mg/hr, 0 mls/hr Lisinopril (Lisinopril 20 Mg Tab) 20 mg PO DAILY [facility] Last Admin: 06/02/22 08:18 Dose: 20 mg Lorazepam (Lorazepam 1 Mg/0.5 Ml Vial) 1 mg IV Q4HR PRN PRN Reason: Anxiety Last Admin: 06/01/22 08:44 Dose: 1 mg Magnesium Hydroxide (Magnesium Hydroxide 2,400 Mg/10 Ml Cup) 2,400 mg PO DAILY PRN PRN Reason: Constipation Miscellaneous Information (Potassium Replacement Protocol 1 Each Misc) 1 each MISCELLANE DAILY PRN; Protocol PRN Reason: Per Protocol Multivitamins (Multivitamins, Thera 1 Each Tab) 1 each PO DAILY [facility] Last Admin: 06/02/22 12:49 Dose: Not Given Naloxone HCl (Naloxone 0.4 Mg/Ml 1 Ml Vial) 0.2 mg IV Q2M PRN PRN Reason: Opioid Reversal Ondansetron HCl (Ondansetron 4 Mg/2 Ml Vial) 4 mg IVP Q8HR PRN PRN Reason: Nausea And Vomiting Pantoprazole Sodium (Pantoprazole 40 Mg/10 Ml Vial) 40 mg IVP DAILY [facility] Last Admin: 06/02/22 08:18 Dose: 40 mg Potassium Chloride (Potassium Chloride Er 10 Meq Tab.Er.Prt) 10 meq PO DAILY [facility] Last Admin: 06/02/22 12:49 Dose: Not Given Senna/Docusate Sodium (Sennosides-Docusate Sodium 1 Each Tab) 2 each PO DAILY PRN PRN Reason: Constipation Sodium Biphosphate/Sodium Phosphate (Na Phos,M-B/Na Phos,Di-Ba 133 Ml Enema) 133 ml RECTAL DAILY PRN PRN Reason: Constipation Past medical history to include: GERD, hypertension,REM sleep disorder 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 . No smoking or alcohol. Physical examination: VITAL SIGNS: Afebrile, 97, 12, 1 59 x 75, 96% GENERAL: reclining in bed, more awake, answering questions EYES: Pupils equal. Conjunctiva normal. HEENT: External appearance of nose and ears normal, oral cavity grossly normal. NECK: Hard collar in place with a Hemovac in place. HEART: First and second heart sounds are normal; no edema. LUNGS: Respiratory rate normal; clear to auscultation. ABDOMEN: Soft, nontender, liver spleen not palpable, no masses palpable. PSYCH: Answering questions slowly. MUSCULOSKELETAL:No Clubbing/cyanosis;muscles-grossly intact NEUROLOGICAL: Cranial nerves grossly intact; no facial asymmetry, moving his right arm and right leg. 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 INVESTIGATIONS, reviewed in the clinical context: 06/02/2022: WBC 10.6 hemoglobin 14.1 platelets 135 potassium 4 creatinine 0.63 06/01/2022: WBC 10.2 hemoglobin 13.5 platelets 128 potassium 3.1 creatinine 0.59 MR C-spine T-spine: Large epidural posterior nonenhancing mass in the area of the C5-C6 up to 22-T3 disc. Significant flattening of the; spinal cord and a nterior displacement. up to 8.5 mm in thickness. White count 4.5 hemoglobin 16 platelets 146 potassium 3.4 BUN 18 creatinine 0.83 Troponin I less than 0.012 CT brain: Age-related atrophic and chronic small vessel ischemic changes. Chest x-ray film personally reviewed by me-unremarkable EKG tracing personally reviewed by me-sinus rhythm. Nonspecific T-wave changes. CT angiogram head and neck: Unremarkable Ultrasound duplex out of: Unremarkable CT; thoracolumbar spine showing evidence of DJD. Assessment and plan: -Mass in the area of C5-C6-T2-T3 about 8.5 mm in thickness on MRI. Taken to the or on 05/31/[address] Abrams. Possible hematoma evacuated. . Wondering if this was a AV malformation that ruptured. Patient empirically on IV Ancef and Decadron. No fever. No white count. Right down right leg weakness improving -Essential hypertension -Acute metabolic encephalopathy. Multifactorial: Improving -Mild thrombocytopenia -Hypokalemia Replace potassium -GERD Pepcid -ChronicREM disorder insomnia Klonopin -Full code Hard collar. IV. Decadron. IV Ancef. Care was discussed with the and inpatient. Improving. Await pathology.
[2022-06-02] MEDS: METOPROLOL TARTRATE 25 MG TAB PO SCH ×2 (15:20→20:36)
[2022-06-02] MEDS: clonazePAM 0.5 MG TAB PO SCH (20:36)
[2022-06-02] MEDS: LORazepam 1 MG/0.5 ML VIAL IV PRN (22:13)
[2022-06-03] MEDS: CLEVIDIPINE BUTYRATE 25 MG in EMPTY BAG 1 BAG IV SCH ×4 (02:49→22:22)
[2022-06-03] MEDS: DEXAMETHASONE SOD PHOSPHATE 4 MG/ML 1 ML VIAL IVP SCH ×3 (05:08→20:59)
[2022-06-03] MEDS: ACETAMINOPHEN TAB 325 MG TAB PO SCH ×3 (05:09→17:08)
[2022-06-03] MEDS: HYDROmorphone 0.5 MG/0.5 ML SYRINGE IVP PRN ×2 (05:09→11:37)
[2022-06-03 08:41] LABS: Basophils % (A) 0 %; Eosinophils % (A) 0 %; HGB 15.3 gm/dL (13.0-17.5); Lymphocytes # (A) 0.2 k/uL (1.0-4.8); Lymphocytes % (A) 2 %; MCH 30.5 pg (25.0-35.0); MCHC 35.6 g/dL (31.0-37.0); MCV 85.6 fL (80.0-100.0); Mean Platelet Volume 7.9; Monocytes # (A) 0.5 k/uL (0-1.0); Monocytes % (A) 4 %; Neutrophils # (A) 11.7 k/uL (1.3-7.7); Neutrophils % (A) 94 %; Platelet Count 157 k/uL (150-450); RBC 5.02 m/uL (4.30-5.90); RDW 12.9 % (11.5-15.5); WBC 12.5 k/uL (3.8-10.6)
--- NOTE | 2022-06-03 08:41 | P.PN ---
Subjective Progress Note Date: 06/03/22 Principal diagnosis: Status post C4-T4 decompression with posterior lateral stabilization Patient seen and examined at bedside. Patient was sitting up in bed eating breakfast, with no difficulty of swallowing. Patient is able to move bilateral upper and lower extremities, he states he just feels delayed and slower to move. Patient reports that he did sit up in chair for approx an hour and a half yesterday. Patient was able to bring both knees up in bed without difficulty. He states he feels weak with bearing weight when standing with walker. Encouragement provided to continue working with staff and PT/OT. Verma catheter may be removed this morning. Readjusted his cervical collar, surgical dressing is CDI, drain will be discontinued later today. Pateint denies any fever/chills, nausea/vomiting, or chest pain. Objective - Vital Signs Vital signs: Vital Signs Temp 97.6 F 06/03/22 04:00 Pulse 65 06/03/22 07:00 Resp 15 06/03/22 07:00 BP 164/87 06/03/22 07:00 Pulse Ox 96 06/03/22 08:09 FiO2 45 06/01/22 08:00 Intake & Output 06/02/22 06/03/22 06/03/22 18:59 06:59 18:59 Intake Total 1116.567 309.8 Output Total 870 1755 Balance 246.567 -1445.2 Weight 74.9 kg Intake: IV 500 260 ACETAMINOPHEN IV (For NPO 100 ) 1,000 mg In Empty Bag 1 bag @ 400 mls/hr IVPB Q6H [facility] Rx#:[id number] LR @ 20 240 260 Sodium Chloride 0.9% 1, 160 000 ml @ 20 mls/hr IV . Q24H [facility] Rx#:[id number] Intake, IV Titration 136.567 49.8 Amount Clevidipine Butyrate 25 36.567 49.8 mg In Empty Bag 1 bag @ 1 MG/HR 2 mls/hr IV .Q24H [facility] Rx#:[id number] ceFAZolin 2 gm In Sodium 100 Chloride 0.9% 50 ml @ 100 mls/hr IVPB Q8H [facility] Rx#: [id number] Oral 480 Output: Drainage 20 80 Upper Back 20 80 Urine 850 1675 Other: Voiding Method Indwelling Catheter Indwelling Catheter ABP, PAP, CO, CI - Last Documented Arterial Blood Pressure 107/64 - Exam Physical Examination General: The patient is awake and alert, in no acute distress Skin: Skin is warm and dry with no obvious rashes or lesions. Hairy patches absent, no dorsal skin dimples, no cafe au lait spots. Surgical incision to posterior cervical and thoracic region, hemovac present. Eye: Pupils are equal, round and reactive to light, extra-ocular movements are intact; there is normal conjunctiva bilaterally. Neck: The neck is supple, there is slight tenderness and limited ROM due to surgical procedure. Cardiovascular: There is a regular rate and rhythm. No murmur, rub or gallop is appreciated. Respiratory: Lungs are clear to auscultation, respirations are non-labored, breath sounds are equal. Gastrointestinal: Soft, non-distended, non-tender abdomen . Back: There is no tenderness to palpation in the midline, paralumbar, parathoracic or buttocks region. There is no obvious deformity . Musculoskeletal: ROM limited secondary to pain and stiffness from surgical proce dure. Muscle strength in all major muscle groups 3+/5 in bilateral upper extremities, and 4-/5 in bilateral lower extremities. Neurological: CN 2-12 intact. There are no obvious motor or sensory deficits. Movement and coordination equal and intact. Sensory exam to light touch intact C5-T1 and intact from L2-S1. Reflexes 2/4 in bilateral upper and lower extremities. Negative Hoffmans, babinski, and clonus signs. Psychiatric: Cooperative, appropriate mood & affect, normal judgment. - Labs CBC & Chem 7: 06/02/22 03:22 06/02/22 03:22 Labs: Microbiology - Last 24 Hours (Table) 06/01/22 01:06 Gram Stain - Preliminary Back Wound Culture - Preliminary 06/01/22 01:06 Gram Stain - Preliminary Back Wound Culture - Preliminary Assessment and Plan Assessment: Post-op day 3: status post C4-T4 decompression with posterior lateral stabilization Other medical comorbidities Plan: -Appreciate sql consultant and team management. -Activity: Ambulate QID, OOB all meals, up and about, limit lifting bending twisting to less than 5 lbs. No pushing, pulling, or overhead activity. Use walker or cane if needed for stability. -Daily PT/OT, increase ambulation strength and balance. -Hard cervical collar at all times, may remove to shower. -Pain control: Adequate at this time -Meds: reviewed, continuing with titrating steroids. -GI ppx: Max briggs -FABIANO verma today 06/03/22 -Hygiene: Shower today. Maintain dressing clean and dry. -Drains: Maintain for now, will d/c later today -Encourage IS 10x/hr -Other medical specialty recommendations -We'll continue to follow during inpatient stay *I reviewed and discussed this case with my attending Dr. Abrams, whom has reviewed this chart and films and is in agreement with assessment and plan of care as outlined above. I have personally seen and examined the patient, performed the documentation and the assessment and plan as written. Number of minutes spent on the visit: 20m.
[2022-06-03] MEDS: PANTOPRAZOLE 40 MG/10 ML VIAL IVP SCH (08:46)
[2022-06-03] MEDS: lisinopriL 20 MG TAB PO SCH (08:47)
[2022-06-03] MEDS: BALSALAZIDE DISODIUM 750 MG CAPSULE PO SCH ×3 (08:47→22:21)
[2022-06-03] MEDS: HYDROcodone/APAP 10-325MG 1 EACH TAB PO PRN ×2 (08:48→20:59)
[2022-06-03] MEDS: FAMOTIDINE 20 MG TAB PO SCH ×2 (08:48→20:59)
[2022-06-03] MEDS: METOPROLOL TARTRATE 25 MG TAB PO SCH ×2 (08:49→20:59)
[2022-06-03] MEDS: MULTIVITAMINS, THERA 1 EACH TAB PO SCH (08:49)
[2022-06-03] MEDS: CHOLECALCIFEROL 25 MCG (1000 IU) TABLET PO SCH (08:49)
[2022-06-03 09:01] LABS: African American GFR (CKD) >90 (>60 ml/min/1.73 sqM); Anion Gap 3 mmol/L; Blood Urea Nitrogen 17 mg/dL (9-20); Calcium 8.2 mg/dL (8.4-10.2); Carbon Dioxide 31 mmol/L (22-30); Chloride 103 mmol/L (98-107); Glucose 143 mg/dL (74-99); Non-African American GFR(CKD) >90 (>60 ml/min/1.73 sqM); Potassium 3.8 mmol/L (3.5-5.1); Sodium 137 mmol/L (137-145)
[2022-06-03] MEDS: POTASSIUM CHLORIDE ER 10 MEQ TAB.ER.PRT PO SCH (09:12)
--- NOTE | 2022-06-03 09:40 | P.PN ---
Subjective Progress Note Date: 06/03/22 Physical very pleasant 76-year-old male patient with history of gastroesophageal reflux disease, hypertension, Previous back surgery in 1980s. He presented to the emergency room early this morning with symptoms of back pain. Initially the pain started around 5:30 in the morning. He had discomfort in his right arm. He has discomfort was near the scapula on the right side as well. He felt his right arm may be a little weak. He wasn't having difficulty with ambulation initially but by the time he got to the emergency room he was having some trouble walking. His right lower extremity was quite weak. Computed tomography scan of the brain revealed age-related atrophic and chronic small vessel is chemic changes without acute intracranial process. CT angiogram revealed no flow-limiting stenosis in the bilateral carotid bifurcations. Normal [place]. Ultrasound of the aorta revealed normal findings with no diagnostic aneurysm. Computed tomography scan of the cervical thoracic and lumbar spine revealed mild chronic changes including degenerative disc changes throughout the spinal column and lower lumbar spinal foraminal narrowing. No discrete abnormality to account for the patient's symptoms. MRI is recommended. White count 4.5. Hemoglobin 16.0. Platelets were 26. INR 0.9. D-dimer 0.48. Sodium 139. Potassium 3.4. BUN 18. Creatinine 0.83. Glucose 129. Troponin negative 1. Lactic acid 1.4. AST 37. ALT 36. He has been seen by both neurology and orthopedics. The patient was seen and evaluated in the emergency department. He is currently awake and alert in no acute distress. Maintaining good O2 saturations in the 90s on room air. Chest x-ray revealed no acute pulmonary process. He does have ongoing weakness in the bilateral upper and lower extremities. MRI of the cervical and thoracic spine are pending. Patient was reevaluated today on 06/01/patient is ventilated, he is on assist control rate of 16, volume 550 FiO2 40% and PEEP of 5.yesterday, his MRI of the cervical and thoracic spine was abnormal, showed evidence of an epidural mass, questionable hematoma, patient was seen by Dr. dr waller, and he underwent emergency C4T4 decompression and stabilization, and removal of tumor mass, possible hematoma.patient came back on the ventilator last night, and he is sedated, patient is not in any distress, blood pressure seems to be a bit e levated and propofol at 30 mcg/kg/m, his IV fluids at KVO. Chest x-ray this morning is basically unremarkable. Patient will be taken off propofol, will give a trial of weaning, and if tolerated, we'll proceed to extubating the patient.electrolytes are basically unremarkable, CBC is normal. ABG this morning showed a pO2 of 190 pCO2 35 pH of 7.48.renal profile is normal. Blood pressure is elevated, and I will try the patient on clevidipine drip in addition continues pain meds. Reevaluated today on 06/02/22, patient tolerated extubation well over the last 24 hours, patient is on room air, and his O2 sats is 97%. Patient was noted to have increase strength in his right lower extremity and his right upper extremity, he could raise both extremities well above the bed level. Clearly that's an improvement compared to his baseline. CBC is normal electrolytes are normal, renal profile is normal. Overall the patient is doing great, and he continues to have cervical collar in place. The patient is seen today 06/03/2022 in follow-up in the intensive care unit. He is awake and alert in no acute distress. His c-collar remains in place. On 05/31/2022 he had undergone a laminectomy for epidural hematoma/mass excision C4 through T4 with biopsy. Pathology is pending. He is currently maintaining good O2 saturations in the mid 90s on room air. He's afebrile. Hemodynamically stable. He has lactated Ringer's at 20 ML's per hour. Clevidipine has remained on hold. Current blood pressure 139/96. White count 12.5. Hemoglobin 15.3. Sodium 137. Potassium 3.8. BUN 17. Creatinine 0.61. He remains on cefazolin.. Continued on Decadron. Objective - Vital Signs Vital signs: Vital Signs Temp 98.4 F 06/03/22 08:00 Pulse 64 06/03/22 09:00 Resp 19 06/03/22 09:00 BP 139/96 06/03/22 09:00 Pulse Ox 97 06/03/22 09:00 FiO2 45 06/01/22 08:00 Intake & Output 06/02/22 06/03/22 06/03/22 18:59 06:59 18:59 Intake Total 1116.567 309.8 102.733 Output Total 870 1755 100 Balance 246.567 -1445.2 2.733 Weight 74.9 kg Intake: IV 500 260 80 ACETAMINOPHEN IV (For NPO 100 ) 1,000 mg In Empty Bag 1 bag @ 400 mls/hr IVPB Q6H [facility] Rx#:[id number] LR @ 20 240 260 40 Sodium Chloride 0.9% 1, 160 40 000 ml @ 20 mls/hr IV . Q24H [facility] Rx#:[id number] Intake, IV Titration 136.567 49.8 22.733 Amount Clevidipine Butyrate 25 36.567 49.8 22.733 mg In Empty Bag 1 bag @ 1 MG/HR 2 mls/hr IV .Q24H [facility] Rx#:[id number] ceFAZolin 2 gm In Sodium 100 Chloride 0.9% 50 ml @ 100 mls/hr IVPB Q8H [facility] Rx#: [id number] Oral 480 Output: Drainage 20 80 Upper Back 20 80 Urine 850 1675 100 Other: Voiding Method Indwelling Catheter Indwelling Catheter ABP, PAP, CO, CI - Last Documented Arterial Blood Pressure 107/64 - Exam GENERAL EXAM: Alert, pleasant 76 show male, on room air, comfortable in no apparent distress. HEAD: Normocephalic. EYES: Normal reaction of pupils, equal size. NOSE: Clear with pink turbinates. THROAT: No erythema or exudates. NECK: C-collar remains in place No masses, no JVD. CHEST: No chest wall deformity. LUNGS: Equal air entry with no crackles, wheeze, rhonchi or dullness. CVS: S1 and S2 normal with no audible murmur, regular rhythm. ABDOMEN: No hepatosplenomegaly, normal bowel sounds, no guarding or rigidity. SPINE: No scoliosis or deformity SKIN: No rashes CENTRAL NERVOUS SYSTEM: No focal deficits, tone is normal in all 4 extremities. EXTREMITIES: There is no peripheral edema. No clubbing, no cyanosis. Peripheral pulses are intact. - Labs CBC & Chem 7: 06/03/22 07:47 06/03/22 07:47 Labs: Abnormal Lab Results - Last 24 Hours (Table) 06/03/22 06/03/22 Range/Units 07:47 07:47 WBC 12.5 H (3.8-10.6) k/uL Neutrophils # 11.7 H (1.3-7.7) k/uL Lymphocytes # 0.2 L (1.0-4.8) k/uL Carbon Dioxide 31 H (22-30) mmol/L Creatinine 0.61 L (0.66-1.25) mg/dL Glucose 143 H (74-99) mg/dL Calcium 8.2 L (8.4-10.2) mg/dL Microbiology - Last 24 Hours (Table) 06/01/22 01:06 Gram Stain - Preliminary Back Wound Culture - Preliminary 06/01/22 01:06 Gram Stain - Preliminary Back Wound Culture - Preliminary Assessment and Plan Assessment: Acute onset of progressive bilateral upper and lower extremity weakness of unclear etiology. Computed tomography scan of the brain revealed no acute a bnormalities. Computed tomography scan of the cervical, thoracic and lumbar spine revealed degenerative changes throughout the lumbar spine with multilevel lumbar spondylosis and facet arthroplasty but no acute osseous abnormalities. MRIs revealed a large epidural posterior nonenhancing mass in the spinal canal. Possible epidural hematoma versus tumor. He did undergo laminectomy for epidural hematoma/mass excision C4 through T4 with biopsy on 05/31/2022. Pathology is pending. History of previous back surgery back in the 1980s Hypertension Nonsmoker Plan: The patient was seen and evaluated Medications and labs reviewed Current stable and on room air Clevidipine is currently on hold. Blood pressure medications adjusted Pathology is pending We will continue to follow I have personally seen and examined the patient, performed the documentation and the assessment and plan as written. Number of minutes spent on the visit: 10.
--- NOTE | 2022-06-03 12:41 | P.PN ---
Progress Note - Text Progress Note Date: 06/03/22 Chief Complaint: Right arm the leg weakness This is a 76-year-old patient who follows with Dr. Ramirez. Chronic stable medical conditions include GERD, hypertension, REM sleep disorder This morning around 5:30 AM patient woke up with pain in the medial part of the right scalpula posteriorly. Subsequent he started noticing pain in the right arm in the joints. Right arm became weak. Pain progressed to become rather significant. No fever no chills. Pain then progressed to go to the neck. was concerned about a cardiac cause brought the patient to the ER. In the parking lot when patient is walking to the hospital noted that his right leg was weak. Had to be supported. In the ER patient left leg also became weak. Became incontinent. Mata catheter was placed. Consultation to neurology, orthopedic was done. Also to theatre manager to move the patient to the ICU. Patient denies any fever and chills. 06/01/2022: Yesterday evening cervical thoracic spine MRI showed a mass. Dr. Abrams to the patient to the OR. Formal report is pending. describes a hematoma being removed. Currently the patient ICU. Hard collar In place. Cervical drain. Lethargic. and son at the bedside. 06/02/2022: ICU. Patient has a Hemovac remains in place. Moving his right arm and right leg better. Mata catheter in place. Did eat some yogurt. Pain better. Pathology pending. Discussed with patient and at the bedside. Remains on Decadron. IV Ancef. 06/03/2022: ICU. Hemovac in place. Pain in the neck. Hard collar. Eating somewhat better today. Moving right arm and right leg better. Has been out of bed. Remains on cleviprex 5 blood pressure. Pathology still pending from the surgery. Spoke to the patient and the . Active Medications Acetaminophen (Acetaminophen Tab 325 Mg Tab) 650 mg PO Q6HR [facility] Last Admin: 06/03/22 12:08 Dose: 650 mg Hydrocodone Bitart/Acetaminophen (Hydrocodone/Apap 10-325mg 1 Each Tab) 1 each PO Q6H PRN PRN Reason: Pain Scale 7 - 10 Last Admin: 06/03/22 08:48 Dose: 1 each Hydrocodone Bitart/Acetaminophen (Hydrocodone/Apap 7.5-325mg 1 Each Tab) 1 each PO Q6HR PRN PRN Reason: Pain Al Hydroxide/Mg Hydroxide (Mag Hydrox/Al Hydrox/Simeth 30 Ml Cup) 30 ml PO Q4HR PRN PRN Reason: Indigestion Artificial Tears (Artificial Tears-Hypromellose Drops 15 Ml Btl) 1 drops BOTH EYES QID PRN PRN Reason: Dry Eye(s) Balsalazide (Balsalazide Disodium 750 Mg Capsule) 2,250 mg PO TID [facility] Last Admin: 06/03/22 08:47 Dose: 2,250 mg Bisacodyl (Bisacodyl 10 Mg Supp) 10 mg RECTAL DAILY PRN PRN Reason: Constipation Cholecalciferol (Cholecalciferol 25 Mcg (1000 Iu) Tablet) 75 mcg PO DAILY [facility] Last Admin: 06/03/22 08:49 Dose: 75 mcg Clonazepam (Clonazepam 0.5 Mg Tab) 0.5 mg PO HS [facility] Last Admin: 06/02/22 20:36 Dose: 0.5 mg Cyclobenzaprine HCl (Cyclobenzaprine 5 Mg Tab) 5 mg PO TID PRN PRN Reason: Muscle Spasm Dexamethasone Sodium Phosphate (Dexamethasone Sod Phosphate 4 Mg/Ml 1 Ml Vial) 2 mg IVP BID [facility] Last Admin: 06/03/22 08:46 Dose: 2 mg Famotidine (Famotidine 20 Mg Tab) 20 mg PO BID [facility] Last Admin: 06/03/22 08:48 Dose: 20 mg Hydromorphone HCl (Hydromorphone 0.5 Mg/0.5 Ml Syringe) 0.5 mg IVP Q3HR PRN PRN Reason: Moderate Pain (Scale 4 to 6) Last Admin: 06/03/22 11:37 Dose: 0.5 mg Hydromorphone HCl (Hydromorphone 0.5 Mg/0.5 Ml Syringe) 0.25 mg IVP Q3HR PRN PRN Reason: Severe Pain (Scale 7 to 10) Last Admin: 06/01/22 16:24 Dose: 0.25 mg Sodium Chloride (Saline 0.9%) 1,000 mls @ 20 mls/hr IV .Q24H [facility] Last Admin: 06/02/22 11:01 Dose: 20 mls/hr Cefazolin Sodium 2 gm/ Sodium (Chloride) 50 mls @ 100 mls/hr IVPB Q8H [facility]; Protocol Last Admin: 06/03/22 12:08 Dose: 100 mls/hr Clevidipine 25 mg/ IV Solution 50 mls @ 2 mls/hr IV .Q24H [facility]; Protocol Last Titration: 06/03/22 11:15 Dose: 4 mg/hr, 8 mls/hr Lisinopril (Lisinopril 20 Mg Tab) 20 mg PO DAILY [facility] Last Admin: 06/03/22 08:47 Dose: 20 mg Lorazepam (Lorazepam 1 Mg/0.5 Ml Vial) 1 mg IV Q4HR PRN PRN Reason: Anxiety Last Admin: 06/02/22 22:13 Dose: 1 mg Magnesium Hydroxide (Magnesium Hydroxide 2,400 Mg/10 Ml Cup) 2,400 mg PO DAILY PRN PRN Reason: Constipation Metoprolol Tartrate (Metoprolol Tartrate 25 Mg Tab) 25 mg PO BID [facility] Last Admin: 06/03/22 08:49 Dose: 25 mg Miscellaneous Information (Potassium Replacement Protocol 1 Each Misc) 1 each MISCELLANE DAILY PRN; Protocol PRN Reason: Per Protocol Multivitamins (Multivitamins, Thera 1 Each Tab) 1 each PO DAILY [facility] Last Admin: 06/03/22 08:49 Dose: 1 each Naloxone HCl (Naloxone 0.4 Mg/Ml 1 Ml Vial) 0.2 mg IV Q2M PRN PRN Reason: Opioid Reversal Ondansetron HCl (Ondansetron 4 Mg/2 Ml Vial) 4 mg IVP Q8HR PRN PRN Reason: Nausea And Vomiting Pantoprazole Sodium (Pantoprazole 40 Mg/10 Ml Vial) 40 mg IVP DAILY [facility] Last Admin: 06/03/22 08:46 Dose: 40 mg Potassium Chloride (Potassium Chloride Er 10 Meq Tab.Er.Prt) 10 meq PO DAILY [facility] Last Admin: 06/03/22 09:12 Dose: Not Given Senna/Docusate Sodium (Sennosides-Docusate Sodium 1 Each Tab) 2 each PO DAILY PRN PRN Reason: Constipation Sodium Biphosphate/Sodium Phosphate (Na Phos,M-B/Na Phos,Di-Ba 133 Ml Enema) 133 ml RECTAL DAILY PRN PRN Reason: Constipation Past medical history to include: GERD, hypertension,REM sleep disorder 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 . No smoking or alcohol. Physical examination: VITAL SIGNS: 98.4, 88, 14, 116/84, 95% room air GENERAL: reclining in bed, awake, answering questions EYES: Pupils equal. Conjunctiva normal. HEENT: External appearance of nose and ears normal, oral cavity grossly normal. NECK: Hard collar in place with a Hemovac in place. HEART: First and second heart sounds are normal; no edema. LUNGS: Respiratory rate normal; clear to auscultation. ABDOMEN: Soft, nontender, liver spleen not palpable, no masses palpable. PSYCH: AO 3, mood and affect normal MUSCULOSKELETAL:No Clubbing/cyanosis;muscles-grossly intact NEUROLOGICAL: Cranial nerves grossly intact; no facial asymmetry, able to lift his right arm and right leg. Fair line up worker INVESTIGATIONS, reviewed in the clinical context: 06/03/2022: WBC 12.5 hemoglobin 15.3 platelets 157 potassium 3.8 creatinine 0.61 06/02/2022: WBC 10.6 hemoglobin 14.1 platelets 135 potassium 4 creatinine 0.63 06/01/2022: WBC 10.2 hemoglobin 13.5 platelets 128 potassium 3.1 creatinine 0.59 MR C-spine T-spine: Large epidural posterior nonenhancing mass in the area of the C5-C6 up to 22-T3 disc. Significant flattening of the; spinal cord and anterior displacement. up to 8.5 mm in thickness. White count 4.5 hemoglobin 16 platelets 146 potassium 3.4 BUN 18 creatinine 0.83 Troponin I less than 0.012 CT brain: Age-related atrophic and chronic small vessel ischemic changes. Chest x-ray film personally reviewed by me-unremarkable EKG tracing personally reviewed by me-sinus rhythm. Nonspecific T-wave changes. CT angiogram head and neck: Unremarkable Ultrasound duplex out of: Unremarkable CT; thoracolumbar spine showing evidence of DJD. Assessment and plan: -Mass in the area of C5-C6-T2-T3 about 8.5 mm in thickness on MRI. Taken to the or on 05/31/[address] Abrams. Possible hematoma evacuated. . Wondering if this was a AV malformation that ruptured. Patient empirically on IV Ancef and Decadron-being weaned off. No fever. No white count. Right down right leg weakness improving -Essential hypertension, uncontrolled Remains On cleviprex. Lopressor. Prinivil. -Acute metabolic encephalopathy. Multifactorial: Corrected -Mild thrombocytopenia, improving -Hypokalemia: Corrected Replace potassium -GERD Pepcid -ChronicREM disorder insomnia Klonopin -Full code Hard collar. IV Ancef. Improving. Await pathology. Hemovac in place. Discussed with patient and . Remains on cleviprex.
--- NOTE | 2022-06-03 13:09 | P.PN ---
Subjective Progress Note Date: 06/03/22 Patient was seen for a follow-up. Patient initially seen by Dr. Amilcar Arredondo on 05/31/2022 and then subsequently seen by Dr De La Fuente on 06/01/2022. Please refer to their notes for details. Patient tells me that he has history of some back pain, but was not very serious. On the day of admission on 05/31/2022, patient remembers waking up at 1:30 in the morning and went to the bathroom and was feeling fine. At 5 AM when he woke up, felt pain in the right elbow, then the rest and pain in the right scapular region. He developed weakness of the right arm, then the left, then bilateral lower limbs. By the time he arrived to the hospital, he could not put weight on his legs and couldn't walk at all. Patient underwent emergency decompressive surgery for an epidural space occupying lesion with severe stenosis at C5 to T4 level on the same day 05/31/2022. Postoperative diagnosis was C5 T4 posterior epidural space occupying lesion with severe stenosis, hematoma 10 cm x 4 cm x 2 cm. Patient states that prior to his surgery, he could not lift his right arm, couldn't make a fist. However it is getting better. He is able to move his legs. Patient has history of back surgery in 1985 and another one in 1990. No previous history of trauma, being on blood thinners or any history of cancers. Objective - Vital Signs Vital signs: Vital Signs Temp 98.2 F 06/03/22 12:00 Pulse 60 06/03/22 12:30 Resp 18 06/03/22 12:30 BP 140/69 06/03/22 12:30 Pulse Ox 95 06/03/22 12:30 FiO2 45 06/01/22 08:00 Intake & Output 06/02/22 06/03/22 06/03/22 18:59 06:59 18:59 Intake Total 1116.567 309.8 165.833 Output Total 870 1755 375 Balance 246.567 -1445.2 -209.167 Weight 74.9 kg Intake: IV 500 260 140 ACETAMINOPHEN IV (For NPO 100 ) 1,000 mg In Empty Bag 1 bag @ 400 mls/hr IVPB Q6H [facility] Rx#:[id number] LR @ 20 240 260 100 Sodium Chloride 0.9% 1, 160 40 000 ml @ 20 mls/hr IV . Q24H [facility] Rx#:[id number] Intake, IV Titration 136.567 49.8 25.833 Amount Clevidipine Butyrate 25 36.567 49.8 25.833 mg In Empty Bag 1 bag @ 1 MG/HR 2 mls/hr IV .Q24H [facility] Rx#:[id number] ceFAZolin 2 gm In Sodium 100 Chloride 0.9% 50 ml @ 100 mls/hr IVPB Q8H [facility] Rx#: [id number] Oral 480 Output: Drainage 20 80 Upper Back 20 80 Urine 850 1675 375 Other: Voiding Method Indwelling Catheter Indwelling Catheter Indwelling Catheter ABP, PAP, CO, CI - Last Documented Arterial Blood Pressure 107/64 - Exam On on examination patient's mental status, speech and language functions are normal. Cranial nerves are all normal. On muscle strength testing (right/left) deltoid 4/4, biceps 5/5, triceps 5/5, supervisor wound 4-/4, hip flexion 4-/4, ankle d orsiflexion 5/5. Deep tendon reflexes (right/left) biceps 1+/2, brachioradialis 1+/2, knees 2+ left 2+ and plantars are upgoing bilaterally. Sensory touch is equal, with no obvious sensory level in the arms or legs. Patient's neck is in a hard collar. - Labs CBC & Chem 7: 06/03/22 07:47 06/03/22 07:47 Labs: Abnormal Lab Results - Last 24 Hours (Table) 06/03/22 06/03/22 Range/Units 07:47 07:47 WBC 12.5 H (3.8-10.6) k/uL Neutrophils # 11.7 H (1.3-7.7) k/uL Lymphocytes # 0.2 L (1.0-4.8) k/uL Carbon Dioxide 31 H (22-30) mmol/L Creatinine 0.61 L (0.66-1.25) mg/dL Glucose 143 H (74-99) mg/dL Calcium 8.2 L (8.4-10.2) mg/dL Microbiology - Last 24 Hours (Table) 06/01/22 01:06 Gram Stain - Final Back Wound Culture - Final 06/01/22 01:06 Gram Stain - Final Back Wound Culture - Final Assessment and Plan Assessment: 1. Right sided weakness secondary to large epidural mass (extending from C5-6 through T2-3) with spinal cord compression, status post decompressive surgery. Possible epidural hematoma. Rule out mass. Rule out underlying AVM. 2. MRI brain reveals no evidence of acute infarct or mass. 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 Reported history of lumbar spine surgery Plan: 1. Patient is off sedation. His mentation is normal. Patient's muscle strength is improving. 2. PT and OT consultations when okay with orthopedic spine. 3. Await final pathology report from cervical mass/epidural hematoma. 4. Neurology will follow.
[2022-06-03] MEDS: SODIUM CHLORIDE 0.9% 1,000 ML IV SCH (17:10)
[2022-06-03] MEDS: clonazePAM 0.5 MG TAB PO SCH (22:21)
[2022-06-04] MEDS: ACETAMINOPHEN TAB 325 MG TAB PO SCH ×4 (00:30→17:56)
[2022-06-04] MEDS: CLEVIDIPINE BUTYRATE 25 MG in EMPTY BAG 1 BAG IV SCH ×3 (03:15→17:56)
[2022-06-04] MEDS: HYDROmorphone 0.5 MG/0.5 ML SYRINGE IVP PRN (03:35)
[2022-06-04 06:05] LABS: Basophils % (A) 0 %; Eosinophils % (A) 0 %; HCT 39.4 % (39.0-53.0); HGB 14.1 gm/dL (13.0-17.5); Lymphocytes # (A) 0.3 k/uL (1.0-4.8); Lymphocytes % (A) 3 %; MCH 30.3 pg (25.0-35.0); MCHC 35.8 g/dL (31.0-37.0); MCV 84.8 fL (80.0-100.0); Mean Platelet Volume 8.1; Monocytes # (A) 0.9 k/uL (0-1.0); Monocytes % (A) 8 %; Neutrophils # (A) 9.2 k/uL (1.3-7.7); Neutrophils % (A) 86 %; Platelet Count 135 k/uL (150-450); RBC 4.64 m/uL (4.30-5.90); RDW 13.1 % (11.5-15.5); WBC 10.6 k/uL (3.8-10.6)
[2022-06-04 06:16] LABS: African American GFR (CKD) >90 (>60 ml/min/1.73 sqM); Anion Gap 3 mmol/L; Blood Urea Nitrogen 22 mg/dL (9-20); Calcium 7.9 mg/dL (8.4-10.2); Carbon Dioxide 31 mmol/L (22-30); Chloride 104 mmol/L (98-107); Glucose 106 mg/dL (74-99); Non-African American GFR(CKD) >90 (>60 ml/min/1.73 sqM); Potassium 3.4 mmol/L (3.5-5.1); Sodium 138 mmol/L (137-145)
[2022-06-04] MEDS: HYDROcodone/APAP 10-325MG 1 EACH TAB PO PRN ×2 (06:23→22:09)
[2022-06-04] MEDS: POTASSIUM CHLORIDE ER 20 MEQ TAB.ER PO SCH ×2 (06:43→08:58)
--- NOTE | 2022-06-04 06:47 | P.PN ---
Subjective Progress Note Date: 06/04/22 patient seen and examined this morning is doing fairly well resting comfortably in bed. He states soreness in his upper back and neck. He states that his arms are moving better. He had a bowel movement yesterday. Verma in place. States that he was up in chair for a while yesterday but that is about it do not walk around a lot. Denies fevers chills shortness of breath or chest pain at this time. Objective - Vital Signs Vital signs: Vital Signs Temp 97.6 F 06/04/22 03:30 Pulse 64 06/04/22 06:00 Resp 16 06/04/22 06:00 BP 151/68 06/04/22 06:00 Pulse Ox 95 06/04/22 06:00 FiO2 45 06/01/22 08:00 Intake & Output 06/03/22 06/03/22 06/04/22 06:59 18:59 06:59 Intake Total 309.8 356.533 528.700 Output Total 1755 1475 1040 Balance -1445.2 -1118.467 -511.300 Weight 74.9 kg 71.7 kg Intake: IV 260 280 220 LR @ 20 260 240 220 Sodium Chloride 0.9% 1, 40 000 ml @ 20 mls/hr IV . Q24H [facility] Rx#:[id number] Intake, IV Titration 49.8 76.533 308.700 Amount Clevidipine Butyrate 25 49.8 76.533 108.700 mg In Empty Bag 1 bag @ 1 MG/HR 2 mls/hr IV .Q24H [facility] Rx#:[id number] ceFAZolin 2 gm In Sodium 200 Chloride 0.9% 50 ml @ 100 mls/hr IVPB Q8H [facility] Rx#: [id number] Output: Drainage 80 Upper Back 80 Urine 1675 1475 1040 Other: Voiding Method Indwelling Catheter Indwelling Catheter Indwelling Catheter ABP, PAP, CO, CI - Last Documented Arterial Blood Pressure 107/64 - Exam Physical Exam: -Patient is alert and oriented 3 appears well-nourished well-hydrated is in no acute distress. They do not appear septic. -There is TTP About the incision and upper Thoracic area [-Incision is CDI, no EEE, no drainage] -Upper extremities show 4+ out of 5 strength in all major muscle groups. normal deconditioning postsurgical along with current situation -Lower extremities with 4+ out of 5 strength in all major muscle groups same -There is [FROM] that is [painless] of the b/l UE and LE in all major joints. [log roll] [SLR] [EXCEPT] -They are intact to light touch sensation in C5 to T1 and L2 to S1 nerve distr ibution. -DTR [2]/4 all upper and lower extremities -Patient has palpable distal pulses all 4 ext -Compartments are soft and compressible. -Patient shows a negative Veda's [-Neg Hoffmans b/l] [-Neg Clonus b/l] [-Neg babinski b/l] Cranial nerves II through XII are grossly intact. - Labs CBC & Chem 7: 06/04/22 05:33 06/04/22 05:33 Labs: Abnormal Lab Results - Last 24 Hours (Table) 06/03/22 06/03/22 06/04/22 Range/Units 07:47 07:47 05:33 WBC 12.5 H (3.8-10.6) k/uL Plt Count 135 L (150-450) k/uL Neutrophils # 11.7 H 9.2 H (1.3-7.7) k/uL Lymphocytes # 0.2 L 0.3 L (1.0-4.8) k/uL Potassium (3.5-5.1) mmol/L Carbon Dioxide 31 H (22-30) mmol/L BUN (9-20) mg/dL Creatinine 0.61 L (0.66-1.25) mg/dL Glucose 143 H (74-99) mg/dL Calcium 8.2 L (8.4-10.2) mg/dL 06/04/22 Range/Units 05:33 WBC (3.8-10.6) k/uL Plt Count (150-450) k/uL Neutrophils # (1.3-7.7) k/uL Lymphocytes # (1.0-4.8) k/uL Potassium 3.4 L (3.5-5.1) mmol/L Carbon Dioxide 31 H (22-30) mmol/L BUN 22 H (9-20) mg/dL Creatinine 0.60 L (0.66-1.25) mg/dL Glucose 106 H (74-99) mg/dL Calcium 7.9 L (8.4-10.2) mg/dL Microbiology - Last 24 Hours (Table) 06/01/22 01:06 Anaerobic Culture - Preliminary Back 06/01/22 01:06 Anaerobic Culture - Preliminary Back 06/01/22 01:06 Gram Stain - Final Back Wound Culture - Final 06/01/22 01:06 Gram Stain - Final Back Wound Culture - Final Assessment and Plan Assessment: 76-year-old male postoperative day 4 from decompression and stabilization for large postoperative hematoma and acute myelopathy Plan: -Appreciate regional engagement consultant and team management. -Activity: Ambulate QID, OOB all meals, up and about, limit lifting bending twisting to less than 5 lbs. Use walker or cane if needed for stability. -Daily PT/OT, increase ambulation strength and balance. - hard c-collar at all times -Pain control: [Adequate at this time] -Meds: [reviewed] -GI ppx: senna, Miralax -DC verma when up and about, bedside commode if needed -DVT PPX: [OK to restart Heparin tonight] -Hygiene: Shower today. Maintain dressing clean and dry. Meticulous cleaning after BMs away from incision site -Drains: [Maintain for now. Record output] -Encourage IS 10x/hr - postoperative CT shows hardware in good position with good decompression -Dispo: [Pending]
[2022-06-04] MEDS ORDERED: LOSARTAN 25 MG TAB PO STA (08:46)
[2022-06-04] MEDS: CHOLECALCIFEROL 25 MCG (1000 IU) TABLET PO SCH (08:57)
[2022-06-04] MEDS: lisinopriL 20 MG TAB PO SCH (08:57)
[2022-06-04] MEDS: PANTOPRAZOLE 40 MG/10 ML VIAL IVP SCH (08:57)
[2022-06-04] MEDS: FAMOTIDINE 20 MG TAB PO SCH ×2 (08:58→21:19)
[2022-06-04] MEDS: MULTIVITAMINS, THERA 1 EACH TAB PO SCH (08:58)
[2022-06-04] MEDS: BALSALAZIDE DISODIUM 750 MG CAPSULE PO SCH ×3 (08:58→21:22)
[2022-06-04] MEDS: DEXAMETHASONE SOD PHOSPHATE 4 MG/ML 1 ML VIAL IVP SCH ×2 (08:58→21:18)
[2022-06-04] MEDS: METOPROLOL TARTRATE 25 MG TAB PO SCH ×2 (08:58→21:19)
[2022-06-04] MEDS: SODIUM CHLORIDE 0.9% 1,000 ML IV SCH (10:03)
[2022-06-04] MEDS: POTASSIUM CHLORIDE ER 10 MEQ TAB.ER.PRT PO SCH (10:03)
--- NOTE | 2022-06-04 10:30 | P.PN ---
Subjective Progress Note Date: 06/04/22 Physical very pleasant 76-year-old male patient with history of gastroesophageal reflux disease, hypertension, Previous back surgery in 1980s. He presented to the emergency room early this morning with symptoms of back pain. Initially the pain started around 5:30 in the morning. He had discomfort in his right arm. He has discomfort was near the scapula on the right side as well. He felt his right arm may be a little weak. He wasn't having difficulty with ambulation initially but by the time he got to the emergency room he was having some trouble walking. His right lower extremity was quite weak. Computed tomography scan of the brain revealed age-related atrophic and chronic small vessel is chemic changes without acute intracranial process. CT angiogram revealed no flow-limiting stenosis in the bilateral carotid bifurcations. Normal [place] of [place]. Ultrasound of the aorta revealed normal findings with no diagnostic aneurysm. Computed tomography scan of the cervical thoracic and lumbar spine revealed mild chronic changes including degenerative disc changes throughout the spinal column and lower lumbar spinal foraminal narrowing. No discrete abnormality to account for the patient's symptoms. MRI is recommended. White count 4.5. Hemoglobin 16.0. Platelets were 26. INR 0.9. D-dimer 0.48. Sodium 139. Potassium 3.4. BUN 18. Creatinine 0.83. Glucose 129. Troponin negative 1. Lactic acid 1.4. AST 37. ALT 36. He has been seen by both neurology and orthopedics. The patient was seen and evaluated in the emergency department. He is currently awake and alert in no acute distress. Maintaining good O2 saturations in the 90s on room air. Chest x-ray revealed no acute pulmonary process. He does have ongoing weakness in the bilateral upper and lower extremities. MRI of the cervical and thoracic spine are pending. Patient was reevaluated today on 06/01/patient is ventilated, he is on assist control rate of 16, volume 550 FiO2 40% and PEEP of 5.yesterday, his MRI of the cervical and thoracic spine was abnormal, showed evidence of an epidural mass, questionable hematoma, patient was seen by Dr. dr waller, and he underwent emergency C4T4 decompression and stabilization, and removal of tumor mass, possible hematoma.patient came back on the ventilator last night, and he is sedated, patient is not in any distress, blood pressure seems to be a bit e levated and propofol at 30 mcg/kg/m, his IV fluids at KVO. Chest x-ray this morning is basically unremarkable. Patient will be taken off propofol, will give a trial of weaning, and if tolerated, we'll proceed to extubating the patient.electrolytes are basically unremarkable, CBC is normal. ABG this morning showed a pO2 of 190 pCO2 35 pH of 7.48.renal profile is normal. Blood pressure is elevated, and I will try the patient on clevidipine drip in addition continues pain meds. Reevaluated today on 06/02/22, patient tolerated extubation well over the last 24 hours, patient is on room air, and his O2 sats is 97%. Patient was noted to have increase strength in his right lower extremity and his right upper extremity, he could raise both extremities well above the bed level. Clearly that's an improvement compared to his baseline. CBC is normal electrolytes are normal, renal profile is normal. Overall the patient is doing great, and he continues to have cervical collar in place. The patient is seen today 06/03/2022 in follow-up in the intensive care unit. He is awake and alert in no acute distress. His c-collar remains in place. On 05/31/2022 he had undergone a laminectomy for epidural hematoma/mass excision C4 through T4 with biopsy. Pathology is pending. He is currently maintaining good O2 saturations in the mid 90s on room air. He's afebrile. Hemodynamically stable. He has lactated Ringer's at 20 ML's per hour. Clevidipine has remained on hold. Current blood pressure 139/96. White count 12.5. Hemoglobin 15.3. Sodium 137. Potassium 3.8. BUN 17. Creatinine 0.61. He remains on cefazolin.. Continued on Decadron. The patient is seen today 06/04/2022 in follow-up in the intensive care unit. He is awake and alert in no acute distress. Maintaining good O2 saturations in the 90s on room air. He is still having issues with hypertension. He is having clevidipine drip at 3 mg an hour. 0.9 NS at KVO. C-collar remains in place. white count 10.6. Hemoglobin 14.1. Sodium 138. Potassium 3.4. BUN 20. Creatinine 0.60. Pathology is pending. He is continued on Decadron. Continued on cefazolin. Objective - Vital Signs Vital signs: Vital Signs Temp 97.6 F 06/04/22 03:30 Pulse 56 L 06/04/22 10:00 Resp 4 L 06/04/22 10:00 BP 167/87 06/04/22 10:00 Pulse Ox 98 06/04/22 10:00 FiO2 45 06/01/22 08:00 Intake & Output 06/03/22 06/04/22 06/04/22 18:59 06:59 18:59 Intake Total 356.533 528.700 464.8 Output Total 1475 1040 100 Balance -1118.467 -511.300 364.8 Weight 71.7 kg Intake: IV 280 220 80 LR @ 20 240 220 80 Sodium Chloride 0.9% 1, 40 000 ml @ 20 mls/hr IV . Q24H [facility] Rx#:[id number] Intake, IV Titration 76.533 308.700 24.8 Amount Clevidipine Butyrate 25 76.533 108.700 24.8 mg In Empty Bag 1 bag @ 1 MG/HR 2 mls/hr IV .Q24H [facility] Rx#:[id number] ceFAZolin 2 gm In Sodium 200 Chloride 0.9% 50 ml @ 100 mls/hr IVPB Q8H [facility] Rx#: [id number] Oral 360 Output: Urine 1475 1040 100 Other: Voiding Method Indwelling Catheter Indwelling Catheter Bedside Commode # Bowel Movements 1 ABP, PAP, CO, CI - Last Documented Arterial Blood Pressure 107/64 - Exam GENERAL EXAM: Alert, pleasant 76-year-old male, on room air, comfortable in no apparent distress. HEAD: Normocephalic. EYES: Normal reaction of pupils, equal size. NOSE: Clear with pink turbinates. THROAT: No erythema or exudates. NECK: C-collar remains in place No masses, no JVD. CHEST: No chest wall deformity. LUNGS: Equal air entry with no crackles, wheeze, rhonchi or dullness. CVS: S1 and S2 normal with no audible murmur, regular rhythm. ABDOMEN: No hepatosplenomegaly, normal bowel sounds, no guarding or rigidity. SPINE: No scoliosis or deformity SKIN: No rashes CENTRAL NERVOUS SYSTEM: No focal deficits, tone is normal in all 4 extremities. EXTREMITIES: There is no peripheral edema. No clubbing, no cyanosis. Peripheral pulses are intact. - Labs CBC & Chem 7: 06/04/22 05:33 06/04/22 05:33 Labs: Abnormal Lab Results - Last 24 Hours (Table) 06/04/22 06/04/22 Range/Units 05:33 05:33 Plt Count 135 L (150-450) k/uL Neutrophils # 9.2 H (1.3-7.7) k/uL Lymphocytes # 0.3 L (1.0-4.8) k/uL Potassium 3.4 L (3.5-5.1) mmol/L Carbon Dioxide 31 H (22-30) mmol/L BUN 22 H (9-20) mg/dL Creatinine 0.60 L (0.66-1.25) mg/dL Glucose 106 H (74-99) mg/dL Calcium 7.9 L (8.4-10.2) mg/dL Microbiology - Last 24 Hours (Table) 06/01/22 01:06 Anaerobic Culture - Preliminary Back 06/01/22 01:06 Anaerobic Culture - Preliminary Back 06/01/22 01:06 Gram Stain - Final Back Wound Culture - Final 06/01/22 01:06 Gram Stain - Final Back Wound Culture - Final Assessment and Plan Assessment: Acute onset of progressive bilateral upper and lower extremity weakness of unclear etiology. Computed tomography scan of the brain revealed no acute abnormalities. Computed tomography scan of the cervical, thoracic and lumbar s pine revealed degenerative changes throughout the lumbar spine with multilevel lumbar spondylosis and facet arthroplasty but no acute osseous abnormalities. MRIs revealed a large epidural posterior nonenhancing mass in the spinal canal. Possible epidural hematoma versus tumor. He did undergo laminectomy for epidural hematoma/mass excision C4 through T4 with biopsy on 05/31/2022. Pathology is pending. History of previous back surgery back in the 1980s Hypertension Nonsmoker Plan: The patient was seen and evaluated Medications and labs reviewed Current stable and on room air Continue Lopressor and lisinopril Add losartan, wean off clevidipine Pathology is pending Could transfer out of the ICU later today We will continue to follow I have personally seen and examined the patient, performed the documentation and the assessment and plan as written. Number of minutes spent on the visit: 10.
--- NOTE | 2022-06-04 12:47 | P.PN ---
Subjective Progress Note Date: 06/04/22 06/04/2022: Patient is laying comfortably in the bed. Still has hard collar in place. Complaining of some soreness in the shoulders more than the neck. Patient is noticing slight hallucinations, sometimes sees ants crawling on the ceiling, or seeing lines on the wall. He otherwise has completely clear sensorium. He is aware that these are hallucinations, not real. These tr ansient hallucinations have been present since in the hospital. Probably related to opiate use. Feels strength is getting better. No new concerns. States had bowel movement last night and feels much better. 06/03/2022: Patient was seen for a follow-up. Patient initially seen by Dr. Amilcar Arredondo on 05/31/2022 and then subsequently seen by Dr De La Fuente on 06/01/2022. Please refer to their notes for details. Patient tells me that he has history of some back pain, but was not very serious. On the day of admission on 05/31/2022, patient remembers waking up at 1:30 in the morning and went to the bathroom and was feeling fine. At 5 AM when he woke up, felt pain in the right elbow, then the rest and pain in the right scapular region. He developed weakness of the right arm, then the left, then bilateral lower limbs. By the time he arrived to the hospital, he could not put weight on his legs and couldn't walk at all. Patient underwent emergency decompressive surgery for an epidural space occupying lesion with severe stenosis at C5 to T4 level on the same day 05/31/2022. Postoperative diagnosis was C5 T4 posterior epidural space occupying lesion with severe stenosis, hematoma 10 cm x 4 cm x 2 cm. Patient states that prior to his surgery, he could not lift his right arm, couldn't make a fist. However it is getting better. He is able to move his legs. Patient has history of back surgery in 1985 and another one in 1990. No previous history of trauma, being on blood thinners or any history of cancers. Objective - Vital Signs Vital signs: Vital Signs Temp 97.6 F 06/04/22 03:30 Pulse 56 L 06/04/22 10:00 Resp 4 L 06/04/22 10:00 BP 167/87 06/04/22 10:00 Pulse Ox 98 06/04/22 10:00 FiO2 45 06/01/22 08:00 Intake & Output 06/03/22 06/04/22 06/04/22 18:59 06:59 18:59 Intake Total 356.533 528.700 464.8 Output Total 1475 1040 100 Balance -1118.467 -511.300 364.8 Weight 71.7 kg Intake: IV 280 220 80 LR @ 20 240 220 80 Sodium Chloride 0.9% 1, 40 000 ml @ 20 mls/hr IV . Q24H [facility] Rx#:[id number] Intake, IV Titration 76.533 308.700 24.8 Amount Clevidipine Butyrate 25 76.533 108.700 24.8 mg In Empty Bag 1 bag @ 1 MG/HR 2 mls/hr IV .Q24H [facility] Rx#:[id number] ceFAZolin 2 gm In Sodium 200 Chloride 0.9% 50 ml @ 100 mls/hr IVPB Q8H [facility] Rx#: [id number] Oral 360 Output: Urine 1475 1040 100 Other: Voiding Method Indwelling Catheter Indwelling Catheter Bedside Commode # Bowel Movements 1 ABP, PAP, CO, CI - Last Documented Arterial Blood Pressure 107/64 - Exam On on examination patient's mental status, speech and language functions are normal. Cranial nerves are all normal. Visual lawrence are full. Extraocular muscles are intact. There is no facial droop. On muscle strength testing (ri ght/left) deltoid 4/4, biceps 5/5, triceps 5/5, comb setter 4+/4+, hip flexion 4+/4+, ankle dorsiflexion 5/5. Deep tendon reflexes (right/left) biceps 1+/2, brachioradialis 1+/2, knees 2+ left 2+ and plantar is downgoing on the right, upgoing on the left side. Sensory touch is equal, with no obvious sensory level in the arms or legs. No peripheral edema. No cyanosis. Patient's neck is in a hard collar. - Labs CBC & Chem 7: 06/04/22 05:33 06/04/22 05:33 Labs: Abnormal Lab Results - Last 24 Hours (Table) 06/04/22 06/04/22 Range/Units 05:33 05:33 Plt Count 135 L (150-450) k/uL Neutrophils # 9.2 H (1.3-7.7) k/uL Lymphocytes # 0.3 L (1.0-4.8) k/uL Potassium 3.4 L (3.5-5.1) mmol/L Carbon Dioxide 31 H (22-30) mmol/L BUN 22 H (9-20) mg/dL Creatinine 0.60 L (0.66-1.25) mg/dL Glucose 106 H (74-99) mg/dL Calcium 7.9 L (8.4-10.2) mg/dL Microbiology - Last 24 Hours (Table) 06/01/22 01:06 Anaerobic Culture - Preliminary Back 06/01/22 01:06 Anaerobic Culture - Preliminary Back 06/01/22 01:06 Gram Stain - Final Back Wound Culture - Final 06/01/22 01:06 Gram Stain - Final Back Wound Culture - Final Assessment and Plan Assessment: 1. Right sided weakness secondary to large epidural mass (extending from C5-6 through T2-3) with spinal cord compression, status post decompressive surgery. Probable an epidural hematoma. Rule out underlying mass. Rule out underlying AVM. 2. MRI brain reveals no evidence of acute infarct or mass. No evidence of facial weakness noted today. 3. Transient hallucinations, probably due to opiates. 4. Reported history of lumbar spine surgery Plan: 1. Patient's mentation is normal. Transient hallucinations, probably due to opiates. 2. Patient's muscle strength is improving gradually. PT and OT consultations when okay with orthopedic spine. 3. Await final pathology report from cervical mass/epidural hematoma. 4. Patient may need a repeat MRI of cervical spine with and without contrast to rule out underlying spinal AVM. 5. DVT prophylaxis: SCDs.
[2022-06-04] MEDS: clonazePAM 0.5 MG TAB PO SCH (21:19)
[2022-06-05] MEDS: CLEVIDIPINE BUTYRATE 25 MG in EMPTY BAG 1 BAG IV SCH (00:34)
[2022-06-05] MEDS: ACETAMINOPHEN TAB 325 MG TAB PO SCH ×4 (00:36→17:08)
[2022-06-05 07:15] LABS: Basophils % (A) 0 %; Eosinophils % (A) 0 %; HGB 14.8 gm/dL (13.0-17.5); Lymphocytes # (A) 0.5 k/uL (1.0-4.8); Lymphocytes % (A) 6 %; MCH 30.3 pg (25.0-35.0); MCHC 35.2 g/dL (31.0-37.0); MCV 86.1 fL (80.0-100.0); Mean Platelet Volume 7.6; Monocytes # (A) 0.8 k/uL (0-1.0); Monocytes % (A) 9 %; Neutrophils # (A) 7.3 k/uL (1.3-7.7); Neutrophils % (A) 83 %; Platelet Count 157 k/uL (150-450); RBC 4.88 m/uL (4.30-5.90); RDW 12.9 % (11.5-15.5); WBC 8.8 k/uL (3.8-10.6)
[2022-06-05 07:36] LABS: African American GFR (CKD) >90 (>60 ml/min/1.73 sqM); Anion Gap 5 mmol/L; Blood Urea Nitrogen 18 mg/dL (9-20); Calcium 8.1 mg/dL (8.4-10.2); Carbon Dioxide 28 mmol/L (22-30); Chloride 104 mmol/L (98-107); Glucose 99 mg/dL (74-99); Non-African American GFR(CKD) >90 (>60 ml/min/1.73 sqM); Potassium 3.4 mmol/L (3.5-5.1); Sodium 137 mmol/L (137-145)
--- NOTE | 2022-06-05 08:20 | P.PN ---
Subjective Progress Note Date: 06/05/22 Principal diagnosis: Status post C4-T4 decompression with posterior lateral stabilization Patient seen and examined at bedside. Patient was sitting up in bed eating breakfast, with no difficulty of swallowing. Patient has been working with PT and has been up to bedside commode. He states he just feels generalized weakness, but feels he is getting better each day. Patient is moving all extremities FROM. Encouragement provided to continue working with staff and PT/OT. Patient denies any fever/chills, nausea/vomiting, or chest pain. Objective - Vital Signs Vital signs: Vital Signs Temp 97.7 F 06/05/22 01:00 Pulse 84 06/05/22 07:30 Resp 20 06/05/22 07:30 BP 153/84 06/05/22 07:30 Pulse Ox 97 06/05/22 07:48 FiO2 45 06/01/22 08:00 Intake & Output 06/04/22 06/05/22 06/05/22 18:59 06:59 18:59 Intake Total 1400.7 461.667 Output Total 700 1600 250 Balance 700.7 -1138.333 -250 Weight 76 kg Intake: IV 220 110 LR @ 20 220 110 Intake, IV Titration 100.7 231.667 Amount Clevidipine Butyrate 25 50.7 31.667 mg In Empty Bag 1 bag @ 1 MG/HR 2 mls/hr IV .Q24H [facility] Rx#:[id number] ceFAZolin 2 gm In Sodium 50 200 Chloride 0.9% 50 ml @ 100 mls/hr IVPB Q8H [facility] Rx#: [id number] Oral 1080 120 Output: Urine 700 1600 250 Other: Voiding Method Bedside Commode Bedside Commode Urinal Urinal # Voids 1 1 # Bowel Movements 1 1 ABP, PAP, CO, CI - Last Documented Arterial Blood Pressure 107/64 - Exam Physical Examination General: The patient is awake and alert, in no acute distress Skin: Skin is warm and dry with no obvious rashes or lesions. Hairy patches absent, no dorsal skin dimples, no cafe au lait spots. Surgical incision to posterior cervical and thoracic region. Eye: Pupils are equal, round and reactive to light, extra-ocular movements are intact; there is normal conjunctiva bilaterally. Neck: The neck is supple, there is slight tenderness and limited ROM due to surgical procedure. Cardiovascular: There is a regular rate and rhythm. No murmur, rub or gallop is appreciated. Respiratory: Lungs are clear to auscultation, respirations are non-labored, breath sounds are equal. Gastrointestinal: Soft, non-distended, non-tender abdomen . Back: There is no tenderness to palpation in the midline, paralumbar, parathoracic or buttocks region. There is no obvious deformity . Musculoskeletal: ROM limited secondary to pain and stiffness from surgical procedure. Muscle strength in all major muscle groups 3+/5 in bilateral upper extremities, and 4-/5 in bilateral lower extremities. Neurological: CN 2-12 intact. There are no obvious motor or sensory deficits. M ovement and coordination equal and intact. Sensory exam to light touch intact C5-T1 and intact from L2-S1. Reflexes 2/4 in bilateral upper and lower extremities. Negative Hoffmans, babinski, and clonus signs. Psychiatric: Cooperative, appropriate mood & affect, normal judgment. 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 -Activity: Ambulate QID, OOB all meals, up and about, limit lifting bending twisting to less than 5 lbs. No pushing, pulling, or overhead activity. Use walker or cane if needed for stability. -Daily PT/OT, increase ambulation strength and balance. -Hard cervical collar at all times, may remove to shower. -Pain control: Adequate at this time -Meds: reviewed, continuing with titrating steroids. -GI ppx: senna, Miralax -Hygiene: Shower today. Maintain dressing clean and dry. -Encourage IS 10x/hr -Other medical specialty recommendations -We'll continue to follow during inpatient stay *I reviewed and discussed this case with my attending Dr. Abrams, whom has reviewed this chart and films and is in agreement with assessment and plan of care as outlined above. I have personally seen and examined the patient, performed the documentation and the assessment and plan as written. Number of minutes spent on the visit: 20m.
[2022-06-05] MEDS: FAMOTIDINE 20 MG TAB PO SCH ×2 (08:35→20:51)
[2022-06-05] MEDS: PANTOPRAZOLE 40 MG/10 ML VIAL IVP SCH (08:35)
[2022-06-05] MEDS: BALSALAZIDE DISODIUM 750 MG CAPSULE PO SCH ×3 (08:35→20:45)
[2022-06-05] MEDS: POTASSIUM CHLORIDE ER 10 MEQ TAB.ER.PRT PO SCH (08:35)
[2022-06-05] MEDS: lisinopriL 20 MG TAB PO SCH (08:35)
[2022-06-05] MEDS: CHOLECALCIFEROL 25 MCG (1000 IU) TABLET PO SCH (08:37)
[2022-06-05] MEDS: SODIUM CHLORIDE 0.9% 1,000 ML IV SCH (08:37)
[2022-06-05] MEDS: METOPROLOL TARTRATE 25 MG TAB PO SCH (08:37)
[2022-06-05] MEDS: MULTIVITAMINS, THERA 1 EACH TAB PO SCH (08:37)
--- NOTE | 2022-06-05 08:38 | P.PN ---
Subjective Progress Note Date: 06/04/22 Chief Complaint: Right arm the leg weakness This is a 76-year-old patient who follows with Dr. Ramirez. Chronic stable medical conditions include GERD, hypertension, REM sleep disorder This morning around 5:30 AM patient woke up with pain in the medial part of the right scalpula posteriorly. Subsequent he started noticing pain in the right arm in the joints. Right arm became weak. Pain progressed to become rather significant. No fever no chills. Pain then progressed to go to the neck. was concerned about a cardiac cause brought the patient to the ER. In the pa rking lot when patient is walking to the hospital noted that his right leg was weak. Had to be supported. In the ER patient left leg also became weak. Became incontinent. Mata catheter was placed. Consultation to neurology, orthopedic was done. Also to windshield installer to move the patient to the ICU. Patient denies any fever and chills. 06/01/2022: Yesterday evening cervical thoracic spine MRI showed a mass. Dr. Abrams to the patient to the OR. Formal report is pending. describes a hematoma being removed. Currently the patient ICU. Hard collar In place. Cervical drain. Lethargic. and son at the bedside. 06/02/2022: ICU. Patient has a Hemovac remains in place. Moving his right arm and right leg better. Mata catheter in place. Did eat some yogurt. Pain better. Pathology pending. Discussed with patient and at the bedside. Remains on Decadron. IV Ancef. 06/03/2022: ICU. Hemovac in place. Pain in the neck. Hard collar. Eating somewhat better today. Moving right arm and right leg better. Has been out of bed. Remains on cleviprex 5 blood pressure. Pathology still pending from the surgery. Spoke to the patient and the . 06/04/2022 Patient is seen in follow-up this morning continues to be in the ICU with multiple medical consultations following. Patient continues with Hemovac in place with orthopedics following closely. Patient is continued on Cleviprex and weaning as tolerated and blood pressure remains elevated. Patient was also continued on IV Decadron along with pain management per orthopedic services and IV cefazolin. Recommend physical therapy daily as patient continues with weakness. Per orthopedic recommendations patient is to continue with hard collar. Patient is afebrile with no reports of chest pain or shortness of breath. Patient is tolerating diet and encouraged oral intake. Awaiting pathology at this time. Physical examination: GENERAL: reclining in bed, awake, answering questions EYES: Pupils equal. Conjunctiva normal. HEENT: External appearance of nose and ears normal, oral cavity grossly normal. NECK: Hard collar in place with a Hemovac in place. HEART: First and second heart sounds are normal; no edema. LUNGS: Respiratory rate normal; clear to auscultation. ABDOMEN: Soft, nontender, no masses palpable. PSYCH: AO 3, mood and affect normal MUSCULOSKELETAL:No Clubbing/cyanosis;muscles-grossly intact NEUROLOGICAL: Cranial nerves grossly intact; no facial asymmetry, able to lift his right arm and right leg. Fair framing specialist Assessment: -Mass in the area of C5-C6-T2-T3 about 8.5 mm in thickness on MRI. Taken to the or on 05/31/[address] Abrams. Possible hematoma evacuated. . Wondering if this was a AV malformation that ruptured. -Essential hypertension, uncontrolled -Acute metabolic encephalopathy. Multifactorial: Corrected -Mild thrombocytopenia, improving -Hypokalemia: Corrected -GERD -Chronic REM disorder insomnia -Full code Plan: Patient is to continue with hard collar per orthopedic recommendations and recommend physical therapy daily. Recommend continue current medications and wean Cleviprex as tolerated. Patient needs better blood pressure control will continue to monitor with vital signs closely Recommend telemetry monitoring Patient is currently continued in the ICU due to the Cleviprex Currently awaiting pathology with Hemovac in place Encouraged oral intake and increased activity as tolerated Follow-up labs recommended Prognosis is guarded The impression and plan of care has been dictated by Nurse Anthony Pra ctitioner as directed. Dr. Gilbert MD I have performed a history and examination and MDM of this patient, discussed the same with the dictator, and agree with the dictator's assessment and plan as written ,documented as a scribe. Based on total visit time, I have performed more than 50% of the visit. Objective - Vital Signs Vital signs: Vital Signs Temp 97.6 F 06/04/22 03:30 Pulse 59 L 06/04/22 07:00 Resp 9 L 06/04/22 07:00 BP 156/73 06/04/22 07:00 Pulse Ox 96 06/04/22 07:00 FiO2 45 06/01/22 08:00 Intake & Output 06/03/22 06/04/22 06/04/22 18:59 06:59 18:59 Intake Total 356.533 528.700 44.8 Output Total 1475 1040 Balance -1118.467 -511.300 44.8 Weight 71.7 kg Intake: IV 280 220 20 LR @ 20 240 220 20 Sodium Chloride 0.9% 1, 40 000 ml @ 20 mls/hr IV . Q24H [facility]NN Rx#:[id number] Intake, IV Titration 76.533 308.700 24.8 Amount Clevidipine Butyrate 25 76.533 108.700 24.8 mg In Empty Bag 1 bag @ 1 MG/HR 2 mls/hr IV .Q24H [facility] Rx#:[id number] ceFAZolin 2 gm In Sodium 200 Chloride 0.9% 50 ml @ 100 mls/hr IVPB Q8H [facility] Rx#: [id number] Output: Urine 1475 1040 Other: Voiding Method Indwelling Catheter Indwelling Catheter ABP, PAP, CO, CI - Last Documented Arterial Blood Pressure 107/64 - Labs CBC & Chem 7: 06/05/22 06:46 06/05/22 06:46 Labs: Abnormal Lab Results - Last 24 Hours (Table) 06/04/22 06/04/22 Range/Units 05:33 05:33 Plt Count 135 L (150-450) k/uL Neutrophils # 9.2 H (1.3-7.7) k/uL Lymphocytes # 0.3 L (1.0-4.8) k/uL Potassium 3.4 L (3.5-5.1) mmol/L Carbon Dioxide 31 H (22-30) mmol/L BUN 22 H (9-20) mg/dL Creatinine 0.60 L (0.66-1.25) mg/dL Glucose 106 H (74-99) mg/dL Calcium 7.9 L (8.4-10.2) mg/dL Microbiology - Last 24 Hours (Table) 06/01/22 01:06 Anaerobic Culture - Preliminary Back 06/01/22 01:06 Anaerobic Culture - Preliminary Back 06/01/22 01:06 Gram Stain - Final Back Wound Culture - Final 06/01/22 01:06 Gram Stain - Final Back Wound Culture - Final
[2022-06-05] MEDS ORDERED: Potassium Replacement Protocol 1 EACH MISC MISCELLANE PRN ×2 (08:43→09:22)
[2022-06-05] MEDS ORDERED: BALSALAZIDE DISODIUM 750 MG CAPSULE PO SCH (09:00)
[2022-06-05] MEDS ORDERED: LOSARTAN 50 MG TAB PO SCH (09:00)
[2022-06-05] MEDS: DEXAMETHASONE SOD PHOSPHATE 4 MG/ML 1 ML VIAL IVP SCH ×2 (09:20→20:51)
[2022-06-05] MEDS: POTASSIUM CHLORIDE ER 20 MEQ TAB.ER PO SCH ×2 (09:48→12:00)
--- NOTE | 2022-06-05 10:58 | P.PN ---
Subjective Progress Note Date: 06/05/22 Physical very pleasant 76-year-old male patient with history of gastroesophageal reflux disease, hypertension, Previous back surgery in 1980s. He presented to the emergency room early this morning with symptoms of back pain. Initially the pain started around 5:30 in the morning. He had discomfort in his right arm. He has discomfort was near the scapula on the right side as well. He felt his right arm may be a little weak. He wasn't having difficulty with ambulation initially but by the time he got to the emergency room he was having some trouble walking. His right lower extremity was quite weak. Computed tomography scan of the brain revealed age-related atrophic and chronic small vessel is chemic changes without acute intracranial process. CT angiogram revealed no flow-limiting stenosis in the bilateral carotid bifurcations. Normal [place]. Ultrasound of the aorta revealed normal findings with no diagnostic aneurysm. Computed tomography scan of the cervical thoracic and lumbar spine revealed mild chronic changes including degenerative disc changes throughout the spinal column and lower lumbar spinal foraminal narrowing. No discrete abnormality to account for the patient's symptoms. MRI is recommended. White count 4.5. Hemoglobin 16.0. Platelets were 26. INR 0.9. D-dimer 0.48. Sodium 139. Potassium 3.4. BUN 18. Creatinine 0.83. Glucose 129. Troponin negative 1. Lactic acid 1.4. AST 37. ALT 36. He has been seen by both neurology and orthopedics. The patient was seen and evaluated in the emergency department. He is currently awake and alert in no acute distress. Maintaining good O2 saturations in the 90s on room air. Chest x-ray revealed no acute pulmonary process. He does have ongoing weakness in the bilateral upper and lower extremities. MRI of the cervical and thoracic spine are pending. Patient was reevaluated today on 06/01/patient is ventilated, he is on assist control rate of 16, volume 550 FiO2 40% and PEEP of 5.yesterday, his MRI of the cervical and thoracic spine was abnormal, showed evidence of an epidural mass, questionable hematoma, patient was seen by Dr. dr waller, and he underwent emergency C4T4 decompression and stabilization, and removal of tumor mass, possible hematoma.patient came back on the ventilator last night, and he is sedated, patient is not in any distress, blood pressure seems to be a bit e levated and propofol at 30 mcg/kg/m, his IV fluids at KVO. Chest x-ray this morning is basically unremarkable. Patient will be taken off propofol, will give a trial of weaning, and if tolerated, we'll proceed to extubating the patient.electrolytes are basically unremarkable, CBC is normal. ABG this morning showed a pO2 of 190 pCO2 35 pH of 7.48.renal profile is normal. Blood pressure is elevated, and I will try the patient on clevidipine drip in addition continues pain meds. Reevaluated today on 06/02/22, patient tolerated extubation well over the last 24 hours, patient is on room air, and his O2 sats is 97%. Patient was noted to have increase strength in his right lower extremity and his right upper extremity, he could raise both extremities well above the bed level. Clearly that's an improvement compared to his baseline. CBC is normal electrolytes are normal, renal profile is normal. Overall the patient is doing great, and he continues to have cervical collar in place. The patient is seen today 06/03/2022 in follow-up in the intensive care unit. He is awake and alert in no acute distress. His c-collar remains in place. On 05/31/2022 he had undergone a laminectomy for epidural hematoma/mass excision C4 through T4 with biopsy. Pathology is pending. He is currently maintaining good O2 saturations in the mid 90s on room air. He's afebrile. Hemodynamically stable. He has lactated Ringer's at 20 ML's per hour. Clevidipine has remained on hold. Current blood pressure 139/96. White count 12.5. Hemoglobin 15.3. Sodium 137. Potassium 3.8. BUN 17. Creatinine 0.61. He remains on cefazolin.. Continued on Decadron. The patient is seen today 06/04/2022 in follow-up in the intensive care unit. He is awake and alert in no acute distress. Maintaining good O2 saturations in the 90s on room air. He is still having issues with hypertension. He is having clevidipine drip at 3 mg an hour. 0.9 NS at KVO. C-collar remains in place. white count 10.6. Hemoglobin 14.1. Sodium 138. Potassium 3.4. BUN 20. Creatinine 0.60. Pathology is pending. He is continued on Decadron. Continued on cefazolin. The patient is seen today 06/05/2022 in follow-up in the intensive care unit. He is currently resting comfortably in bed. Maintaining good O2 saturations 90s on room air. He is down to clevidipine at 1 mg per hour. 0.9 normal saline at 20 ML's per hour. He is continued on lisinopril, metoprolol, losartan 50 mg daily to optimize his blood pressure. Cultures and Gram stain of the mass from his spine revealed no growth thus far. Pathology still pending. White count 8.8. Hemoglobin 14.8. Sodium 137. Potassium 3.4. BUN 18. Creatinine 0.56. Objective - Vital Signs Vital signs: Vital Signs Temp 97.7 F 06/05/22 01:00 Pulse 61 06/05/22 10:00 Resp 17 06/05/22 10:00 BP 126/66 06/05/22 10:00 Pulse Ox 98 06/05/22 10:00 FiO2 45 06/01/22 08:00 Intake & Output 06/04/22 06/05/22 06/05/22 18:59 06:59 18:59 Intake Total 1400.7 848.820 7222.7 Output Total 700 1600 250 Balance 700.7 -1138.333 818.7 Weight 76 kg Intake: IV 220 110 60 LR @ 20 220 110 Sodium Chloride 0.9% 1, 60 000 ml @ 20 mls/hr IV . Q24H [facility] Rx#:[id number] Intake, IV Titration 100.7 231.667 48.7 Amount Clevidipine Butyrate 25 50.7 31.667 48.7 mg In Empty Bag 1 bag @ 1 MG/HR 2 mls/hr IV .Q24H [facility] Rx#:[id number] ceFAZolin 2 gm In Sodium 50 200 Chloride 0.9% 50 ml @ 100 mls/hr IVPB Q8H [facility] Rx#: [id number] Oral 1080 120 960 Output: Urine 700 1600 250 Other: Voiding Method Bedside Commode Bedside Commode Bedside Commode Urinal Urinal Urinal # Voids 1 1 # Bowel Movements 1 1 ABP, PAP, CO, CI - Last Documented Arterial Blood Pressure 107/64 - Exam GENERAL EXAM: Alert, 76-year-old male, on room air, comfortable in no apparent distress. HEAD: Normocephalic. EYES: Normal reaction of pupils, equal size. NOSE: Clear with pink turbinates. THROAT: No erythema or exudates. NECK: C-collar remains in place. No masses, no JVD. CHEST: No chest wall deformity. LUNGS: Equal air entry with no crackles, wheeze, rhonchi or dullness. CVS: S1 and S2 normal with no audible murmur, regular rhythm. ABDOMEN: No hepatosplenomegaly, normal bowel sounds, no guarding or rigidity. SPINE: No scoliosis or deformity SKIN: No rashes CENTRAL NERVOUS SYSTEM: No focal deficits, tone is normal in all 4 extremities. EXTREMITIES: There is no peripheral edema. No clubbing, no cyanosis. Peripheral pulses are intact. - Labs CBC & Chem 7: 06/05/22 06:46 06/05/22 06:46 Labs: Abnormal Lab Results - Last 24 Hours (Table) 06/05/22 06/05/22 Range/Units 06:46 06:46 Lymphocytes # 0.5 L (1.0-4.8) k/uL Potassium 3.4 L (3.5-5.1) mmol/L Creatinine 0.56 L (0.66-1.25) mg/dL Calcium 8.1 L (8.4-10.2) mg/dL Assessment and Plan Assessment: Acute onset of progressive bilateral upper and lower extremity weakness of unclear etiology. Computed tomography scan of the brain revealed no acute abnormalities. Computed tomography scan of the cervical, thoracic and lumbar spine revealed degenerative changes throughout the lumbar spine with multilevel lumbar spondylosis and facet arthroplasty but no acute osseous abnormalities. MRIs revealed a large epidural posterior nonenhancing mass in the spinal canal. Possible epidural hematoma versus tumor. He did undergo laminectomy for epidural hematoma/mass excision C4 through T4 with biopsy on 05/31/2022. Pathology is pending. History of previous back surgery back in the 1980s Hypertension requiring clevidipine drip. Currently at 1 mg per hour. Continued on lisinopril, Lopressor, losartan. Nonsmoker Plan: The patient was seen and evaluated Medications and labs reviewed Stable and on room air Continue to work with the incentive spirometer Continue Lopressor and lisinopril Add losartan, wean off clevidipine Could transfer out of the ICU today We will continue to follow I have personally seen and examined the patient, performed the documentation and the assessment and plan as written. Number of minutes spent on the visit: 10.
[2022-06-05] MEDS: hydrALAZINE HCL 20 MG/ML 1 ML VIAL IVP PRN (13:50)
[2022-06-05] MEDS ORDERED: LOPERAMIDE 2 MG CAP PO STA (14:32)
[2022-06-05] MEDS ORDERED: LOPERAMIDE 2 MG CAP PO PRN (14:32)
[2022-06-05] MEDS: hydrALAZINE HCL 50 MG TAB PO SCH ×2 (14:57→20:51)
[2022-06-05] MEDS: carvediloL 6.25 MG TAB PO SCH ×2 (14:57→17:08)
[2022-06-05] MEDS ORDERED: MD COMMUNICATION TO PHARMACY 1 EACH MISC PO PRN (17:06)
[2022-06-05] MEDS: QUEtiapine 25 MG TAB PO SCH (20:50)
[2022-06-05] MEDS: clonazePAM 0.5 MG TAB PO SCH (20:50)
--- NOTE | 2022-06-05 20:53 | P.PN ---
Subjective Progress Note Date: 06/05/22 06/05/2022: Patient is laying comfortably in the bed. Patient complains of shoulder pain, which is 8/10. It involves bilaterally. Neck pain is much milder, 4/10. Patient states that he was confused last night, woke up and put an IV line. Tried to pull SCDs, thinking that he was going home. He was very anxious. Still seeing hallucinations, seeing small ants on the ceiling. Denies any new neurological symptoms. 06/04/2022: Patient is laying comfortably in the bed. Still has hard collar in place. Complaining of some soreness in the shoulders more than the neck. Shannan ent is noticing slight hallucinations, sometimes sees ants crawling on the ceiling, or seeing lines on the wall. He otherwise has completely clear sensorium. He is aware that these are hallucinations, not real. These transient hallucinations have been present since in the hospital. Probably rela magali to opiate use. Feels strength is getting better. No new concerns. States had bowel movement last night and feels much better. 06/03/2022: Patient was seen for a follow-up. Patient initially seen by Dr. Amilcar Arredondo on 05/31/2022 and then subsequently seen by Dr De La Fuente on 06/01/2022. Please refer to their notes for details. Patient tells me that he has history of some back pain, but was not very serious. On the day of admission on 05/31/2022, patient remembers waking up at 1:30 in the morning and went to the bathroom and was feeling fine. At 5 AM when he woke up, felt pain in the right elbow, then the rest and pain in the right scapular region. He developed weakness of the right arm, then the left, then bilateral lower limbs. By the time he arrived to the hospital, he could not put weight on his legs and couldn't walk at all. Patient underwent emergency decompressive surgery for an epidural space occupying lesion with severe stenosis at C5 to T4 level on the same day 05/31/2022. Postoperative diagnosis was C5 T4 posterior epidural space occupying lesion with severe stenosis, hematoma 10 cm x 4 cm x 2 cm. Patient states that prior to his surgery, he could not lift his right arm, couldn't make a fist. However it is getting better. He is able to move his legs. Patient has history of back surgery in 1985 and another one in 1990. No previo us history of trauma, being on blood thinners or any history of cancers. Objective - Vital Signs Vital signs: Vital Signs Temp 97.7 F 06/05/22 01:00 Pulse 61 06/05/22 10:00 Resp 17 06/05/22 10:00 BP 126/66 06/05/22 10:00 Pulse Ox 98 06/05/22 10:00 FiO2 45 06/01/22 08:00 Intake & Output 06/04/22 06/05/22 06/05/22 18:59 06:59 18:59 Intake Total 1400.7 315.746 7275.7 Output Total 700 1600 250 Balance 700.7 -1138.333 818.7 Weight 76 kg Intake: IV 220 110 60 LR @ 20 220 110 Sodium Chloride 0.9% 1, 60 000 ml @ 20 mls/hr IV . Q24H [facility] Rx#:[id number] Intake, IV Titration 100.7 231.667 48.7 Amount Clevidipine Butyrate 25 50.7 31.667 48.7 mg In Empty Bag 1 bag @ 1 MG/HR 2 mls/hr IV .Q24H [facility] Rx#:[id number] ceFAZolin 2 gm In Sodium 50 200 Chloride 0.9% 50 ml @ 100 mls/hr IVPB Q8H [facility] Rx#: [id number] Oral 1080 120 960 Output: Urine 700 1600 250 Other: Voiding Method Bedside Commode Bedside Commode Bedside Commode Urinal Urinal Urinal # Voids 1 1 # Bowel Movements 1 1 ABP, PAP, CO, CI - Last Documented Arterial Blood Pressure 107/64 - Exam On on examination patient's mental status, speech and language functions are normal. Cranial nerves are all normal. Visual lawrence are full. Extraocular muscles are intact. There is no facial droop. On muscle strength testing (right/left) deltoid 4/4, biceps 5/5, triceps 5/5, apprentice technician 5-/5-, hip flexion 4+/4+, ankle dorsiflexion 5/5. Deep tendon reflexes (right/left) biceps 1+/2, brachioradialis 1+/2, knees 2+ left 2+ and plantar is downgoing bilaterally. Sensory touch is equal, with no obvious sensory level in the arms or legs. No peripheral edema. No cyanosis. Patient's neck is in a hard collar. - Labs CBC & Chem 7: 06/05/22 06:46 06/05/22 06:46 Labs: Abnormal Lab Results - Last 24 Hours (Table) 06/05/22 06/05/22 Range/Units 06:46 06:46 Lymphocytes # 0.5 L (1.0-4.8) k/uL Potassium 3.4 L (3.5-5.1) mmol/L Creatinine 0.56 L (0.66-1.25) mg/dL Calcium 8.1 L (8.4-10.2) mg/dL Assessment and Plan Assessment: 1. Cervical Epidural hematoma with bilateral weakness, right more than left (per MRI, hematoma extending from C5-6 through T2-3) with spinal cord compression, status post decompressive surgery. Rule out underlying mass. Rule out underlying AVM. 2. MRI brain reveals no evidence of acute infarct or mass. No evidence of facial weakness noted today. 3. Transient hallucinations, probably due to delirium from opiates. 4. Reported history of lumbar spine surgery Plan: 1. Patient's mentation is normal. Transient hallucinations, probably due to opiates. Suggest limiting amount of opiates. Steroids may be contributing. 2. Patient's muscle strength is improving gradually. PT and OT consultations when okay with orthopedic spine. 3. Final pathology revealed mostly peripheral blood and focal benign-appearing fibroadipose tissue and possible focal epidural lining cells. This is consistent with epidural hematoma. 4. Suggest a repeat MRI of cervical spine with and without contrast to rule out underlying spinal AVM. Suggest neurosurgical consultation perhaps as an ou tpatient. 5. DVT prophylaxis: SCDs. Dr. Amilcar Arredondo Will resume neurology service in the morning.
[2022-06-06] MEDS: hydrALAZINE HCL 20 MG/ML 1 ML VIAL IVP PRN ×2 (00:15→03:46)
[2022-06-06] MEDS: ACETAMINOPHEN TAB 325 MG TAB PO SCH ×5 (00:15→23:37)
[2022-06-06] MEDS: carvediloL 6.25 MG TAB PO SCH ×2 (06:10→18:30)
--- NOTE | 2022-06-06 06:30 | P.PN ---
Subjective Progress Note Date: 06/05/22 Chief Complaint: Right arm the leg weakness This is a 76-year-old patient who follows with Dr. Ramirez. Chronic stable medical conditions include GERD, hypertension, REM sleep disorder This morning around 5:30 AM patient woke up with pain in the medial part of the right scalpula posteriorly. Subsequent he started noticing pain in the right arm in the joints. Right arm became weak. Pain progressed to become rather significant. No fever no chills. Pain then progressed to go to the neck. was concerned about a cardiac cause brought the patient to the ER. In the pa rking lot when patient is walking to the hospital noted that his right leg was weak. Had to be supported. In the ER patient left leg also became weak. Became incontinent. Mata catheter was placed. Consultation to neurology, orthopedic was done. Also to concrete polisher to move the patient to the ICU. Patient denies any fever and chills. 06/01/2022: Yesterday evening cervical thoracic spine MRI showed a mass. Dr. Abrams to the patient to the OR. Formal report is pending. describes a hematoma being removed. Currently the patient ICU. Hard collar In place. Cervical drain. Lethargic. and son at the bedside. 06/02/2022: ICU. Patient has a Hemovac remains in place. Moving his right arm and right leg better. Mata catheter in place. Did eat some yogurt. Pain better. Pathology pending. Discussed with patient and at the bedside. Remains on Decadron. IV Ancef. 06/03/2022: ICU. Hemovac in place. Pain in the neck. Hard collar. Eating somewhat better today. Moving right arm and right leg better. Has been out of bed. Remains on cleviprex 5 blood pressure. Pathology still pending from the surgery. Spoke to the patient and the . 06/04/2022 Patient is seen in follow-up this morning continues to be in the ICU with multiple medical consultations following. Patient continues with Hemovac in place with orthopedics following closely. Patient is continued on Cleviprex and weaning as tolerated and blood pressure remains elevated. Patient was also continued on IV Decadron along with pain management per orthopedic services and IV cefazolin. Recommend physical therapy daily as patient continues with weakness. Per orthopedic recommendations patient is to continue with hard collar. Patient is afebrile with no reports of chest pain or shortness of breath. Patient is tolerating diet and encouraged oral intake. Awaiting pathology at this time. 06/05/2022 Patient is seen this morning continues to be in the ICU as patient is continued on cleviprex for blood pressure control. Patient is taking lisinopril and will add hydralazine PO for better blood pressure control. Patient is a down grade out of the ICU if off cleviprex. Weaning and currently held. Patient is up and working with physical therapy and reports to his sensations and movements of the extremities are improving although continues with weakness. Recommend PT daily. Encouraged oral intake. Currently awaiting pathology with ortho following as well. Review of systems: Constitutional: No reports of fatigue, fever, or chills Cardiovascular: No reports of chest pain or palpitations Respiratory: No reports of shortness of breath or cough GI: No reports of nausea, vomiting, or diarrhea : No reports of dysuria or retention Neurovascular: reports of generalized weakness All medications have been reviewed Physical examination: GENERAL: reclining in bed, awake, answering questions, tearful EYES: Pupils equal. Conjunctiva normal. HEENT: External appearance of nose and ears normal, oral cavity grossly normal. NECK: Hard collar in place HEART: First and second heart sounds are normal; no edema. LUNGS: Respiratory rate normal; clear to auscultation. ABDOMEN: Soft, nontender, no masses palpable. PSYCH: AO 3, mood and affect normal, slightly anxious MUSCULOSKELETAL:No Clubbing/cyanosis;muscles-grossly intact NEUROLOGICAL: Cranial nerves grossly intact; no facial asymmetry, able to lift his right arm and right leg. strength of sommelier 4/5 bilaterally improved Assessment: -Mass in the area of C5-C6-T2-T3 about 8.5 mm in thickness on MRI. Taken to the or on 05/31/[address] Abrams. Possible hematoma evacuated. . Wondering if this was a AV malformation that ruptured. -Essential hypertension, uncontrolled -Acute metabolic encephalopathy. Multifactorial: Corrected -Mild thrombocytopenia, improving -Hypokalemia: Corrected -GERD -Chronic REM disorder insomnia -Full code Plan: Patient is to continue with hard collar per orthopedic recommendations and recommend physical therapy daily. Recommend continue current medications and wean Cleviprex as tolerated. Have added hydralazine to discontinue cleviprex so he can be downgraded out of the ICU. Recommend telemetry monitoring Currently awaiting pathology Encouraged oral intake and increased activity as tolerated Follow-up labs recommended Prognosis is guarded The impression and plan of care has been dictated by Jessie Urbano, Nurse Practitioner as directed. Dr. Gilbert MD I have performed a history and examination and MDM of this patient, discussed the same with the dictator, and agree with the dictator's assessment and plan as written ,documented as a scribe. Based on total visit time, I have performed more than 50% of the visit. Objective - Vital Signs Vital signs: Vital Signs Temp 97.7 F 06/05/22 01:00 Pulse 84 06/05/22 07:30 Resp 20 06/05/22 07:30 BP 153/84 06/05/22 07:30 Pulse Ox 97 06/05/22 07:48 FiO2 45 06/01/22 08:00 Intake & Output 06/04/22 06/05/22 06/05/22 18:59 06:59 18:59 Intake Total 1400.7 461.667 Output Total 700 1600 250 Balance 700.7 -1138.333 -250 Weight 76 kg Intake: IV 220 110 LR @ 20 220 110 Intake, IV Titration 100.7 231.667 Amount Clevidipine Butyrate 25 50.7 31.667 mg In Empty Bag 1 bag @ 1 MG/HR 2 mls/hr IV .Q24H [facility] Rx#:[id number] ceFAZolin 2 gm In Sodium 50 200 Chloride 0.9% 50 ml @ 100 mls/hr IVPB Q8H [facility] Rx#: [id number] Oral 1080 120 Output: Urine 700 1600 250 Other: Voiding Method Bedside Commode Bedside Commode Urinal Urinal # Voids 1 1 # Bowel Movements 1 1 ABP, PAP, CO, CI - Last Documented Arterial Blood Pressure 107/64 - Labs CBC & Chem 7: 06/05/22 06:46 06/05/22 06:46 Labs: Abnormal Lab Results - Last 24 Hours (Table) 06/05/22 06/05/22 Range/Units 06:46 06:46 Lymphocytes # 0.5 L (1.0-4.8) k/uL Potassium 3.4 L (3.5-5.1) mmol/L Creatinine 0.56 L (0.66-1.25) mg/dL Calcium 8.1 L (8.4-10.2) mg/dL
[2022-06-06 08:05] LABS: Basophils % (A) 0 %; Eosinophils % (A) 0 %; HCT 41.2 % (39.0-53.0); HGB 14.9 gm/dL (13.0-17.5); Lymphocytes # (A) 0.5 k/uL (1.0-4.8); Lymphocytes % (A) 7 %; MCH 30.9 pg (25.0-35.0); MCHC 36.1 g/dL (31.0-37.0); MCV 85.4 fL (80.0-100.0); Mean Platelet Volume 8.1; Monocytes # (A) 0.6 k/uL (0-1.0); Monocytes % (A) 8 %; Neutrophils # (A) 6.1 k/uL (1.3-7.7); Neutrophils % (A) 83 %; Platelet Count 161 k/uL (150-450); RBC 4.82 m/uL (4.30-5.90); RDW 13.4 % (11.5-15.5); WBC 7.4 k/uL (3.8-10.6)
--- NOTE | 2022-06-06 08:05 | P.PN ---
Subjective Progress Note Date: 06/06/22 Principal diagnosis: Status post C4-T4 decompression with posterior lateral stabilization Patient seen and examined at bedside. Patient was sitting up in bed eating breakfast, with no difficulty of swallowing. Surgical dressing CDI. Hard cervical collar present. Patient has been working with PT and sitting up in chair for most meals. He states he ambulated with PT with walker and felt he did well. Patient is moving all extremities FROM. Encouragement provided to continue working with staff and PT/OT. Patient denies any fever/chills, nausea/vomiting, or chest pain. Objective - Vital Signs Vital signs: Vital Signs Temp 97.9 F 06/06/22 04:00 Pulse 61 06/06/22 07:00 Resp 14 06/06/22 07:00 BP 144/69 06/06/22 07:00 Pulse Ox 97 06/06/22 07:00 FiO2 45 06/01/22 08:00 Intake & Output 06/05/22 06/06/22 06/06/22 18:59 06:59 18:59 Intake Total 1860.0 240 20 Output Total 875 1000 0 Balance 985.0 -760 20 Weight 72.9 kg Intake: IV 200 240 20 Sodium Chloride 0.9% 1, 200 240 20 000 ml @ 20 mls/hr IV . Q24H [facility] Rx#:[id number] Intake, IV Titration 100.0 Amount Clevidipine Butyrate 25 50.0 mg In Empty Bag 1 bag @ 1 MG/HR 2 mls/hr IV .Q24H [facility] Rx#:[id number] ceFAZolin 2 gm In Sodium 50 Chloride 0.9% 50 ml @ 100 mls/hr IVPB Q8H [facility] Rx#: [id number] Oral 1560 Output: Urine 875 1000 0 Other: Voiding Method Bedside Commode Bedside Commode Urinal Urinal # Voids 1 # Bowel Movements 1 ABP, PAP, CO, CI - Last Documented Arterial Blood Pressure 107/64 - Exam Physical Examination General: The patient is awake and alert, in no acute distress Skin: Skin is warm and dry with no obvious rashes or lesions. Hairy patches absent, no dorsal skin dimples, no cafe au lait spots. Surgical incision to posterior cervical and thoracic region. Eye: Pupils are equal, round and reactive to light, extra-ocular movements are intact; there is normal conjunctiva bilaterally. Neck: The neck is supple, there is slight tenderness and limited ROM due to surgical procedure. Cardiovascular: There is a regular rate and rhythm. No murmur, rub or gallop is appreciated. Respiratory: Lungs are clear to auscultation, respirations are non-labored, breath sounds are equal. Gastrointestinal: Soft, non-distended, non-tender abdomen . Back: There is no tenderness to palpation in the midline, paralumbar, parathoracic or buttocks region. There is no obvious deformity . Musculoskeletal: ROM limited secondary to pain and stiffness from surgical procedure. Muscle strength in all major muscle groups 3+/5 in bilateral upper extremities, and 4-/5 in bilateral lower extremities. Neurological: CN 2-12 intact. There are no obvious motor or sensory deficits. Movement and coordination equal and intact. Sensory exam to light touch intact C5-T1 and intact from L2-S1. Reflexes 2/4 in bilateral upper and lower extremities. Negative Hoffmans, babinski, and clonus signs. Psychiatric: Cooperative, appropriate mood & affect, normal judgment. - Labs CBC & Chem 7: 06/05/22 06:46 06/05/22 06:46 Labs: Microbiology - Last 24 Hours (Table) 06/01/22 01:06 Anaerobic Culture - Final Back 06/01/22 01:06 Anaerobic Culture - Final Back Assessment and Plan Assessment: Post-op day 6: status post C4-T4 decompression with posterior lateral sta bilization Other medical comorbidities Plan: -Appreciate data integrity consultant and team management. -Activity: Ambulate QID, OOB all meals, up and about, limit lifting bending twisting to less than 5 lbs. No pushing, pulling, or overhead activity. Use walker or cane if needed for stability. -Daily PT/OT, increase ambulation strength and balance. -Hard cervical collar at all times, may remove to shower. -Pain control: Adequate at this time -Meds: reviewed, continuing with titrating steroids. -GI ppx: senna, Miralax -Hygiene: Shower today. Maintain dressing clean and dry. -Encourage IS 10x/hr -Other medical specialty recommendations -We'll continue to follow during inpatient stay *I reviewed and discussed this case with my attending Dr. Abrams, whom has reviewed this chart and films and is in agreement with assessment and plan of care as outlined above. I have personally seen and examined the patient, performed the documentation and the assessment and plan as written. Number of minutes spent on the visit: 20m.
[2022-06-06 08:24] LABS: African American GFR (CKD) >90 (>60 ml/min/1.73 sqM); Anion Gap 4 mmol/L; Blood Urea Nitrogen 20 mg/dL (9-20); Calcium 8.2 mg/dL (8.4-10.2); Carbon Dioxide 29 mmol/L (22-30); Chloride 105 mmol/L (98-107); Glucose 113 mg/dL (74-99); Non-African American GFR(CKD) >90 (>60 ml/min/1.73 sqM); Potassium 3.6 mmol/L (3.5-5.1); Sodium 138 mmol/L (137-145)
[2022-06-06] MEDS: DEXAMETHASONE SOD PHOSPHATE 4 MG/ML 1 ML VIAL IVP SCH ×2 (09:25→20:53)
[2022-06-06] MEDS: hydrALAZINE HCL 50 MG TAB PO SCH ×3 (09:26→20:56)
[2022-06-06] MEDS: MULTIVITAMINS, THERA 1 EACH TAB PO SCH (09:26)
[2022-06-06] MEDS: PANTOPRAZOLE 40 MG/10 ML VIAL IVP SCH (09:26)
[2022-06-06] MEDS: SODIUM CHLORIDE 0.9% 1,000 ML IV SCH (09:26)
[2022-06-06] MEDS: FAMOTIDINE 20 MG TAB PO SCH ×2 (09:26→20:49)
[2022-06-06] MEDS: lisinopriL 20 MG TAB PO SCH (09:26)
[2022-06-06] MEDS: POTASSIUM CHLORIDE ER 10 MEQ TAB.ER.PRT PO SCH (09:26)
[2022-06-06] MEDS: CHOLECALCIFEROL 25 MCG (1000 IU) TABLET PO SCH (09:26)
[2022-06-06] MEDS: MESALAMINE 1.2 GM PO SCH (09:27)
--- NOTE | 2022-06-06 10:26 | P.PN ---
Subjective Progress Note Date: 06/06/22 Physical very pleasant 76-year-old male patient with history of gastroesophageal reflux disease, hypertension, Previous back surgery in 1980s. He presented to the emergency room early this morning with symptoms of back pain. Initially the pain started around 5:30 in the morning. He had discomfort in his right arm. He has discomfort was near the scapula on the right side as well. He felt his right arm may be a little weak. He wasn't having difficulty with ambulation initially but by the time he got to the emergency room he was having some trouble walking. His right lower extremity was quite weak. Computed tomography scan of the brain revealed age-related atrophic and chronic small vessel is chemic changes without acute intracranial process. CT angiogram revealed no flow-limiting stenosis in the bilateral carotid bifurcations. Normal [place]. Ultrasound of the aorta revealed normal findings with no diagnostic aneurysm. Computed tomography scan of the cervical thoracic and lumbar spine revealed mild chronic changes including degenerative disc changes throughout the spinal column and lower lumbar spinal foraminal narrowing. No discrete abnormality to account for the patient's symptoms. MRI is recommended. White count 4.5. Hemoglobin 16.0. Platelets were 26. INR 0.9. D-dimer 0.48. Sodium 139. Potassium 3.4. BUN 18. Creatinine 0.83. Glucose 129. Troponin negative 1. Lactic acid 1.4. AST 37. ALT 36. He has been seen by both neurology and orthopedics. The patient was seen and evaluated in the emergency department. He is currently awake and alert in no acute distress. Maintaining good O2 saturations in the 90s on room air. Chest x-ray revealed no acute pulmonary process. He does have ongoing weakness in the bilateral upper and lower extremities. MRI of the cervical and thoracic spine are pending. Patient was reevaluated today on 06/01/patient is ventilated, he is on assist control rate of 16, volume 550 FiO2 40% and PEEP of 5.yesterday, his MRI of the cervical and thoracic spine was abnormal, showed evidence of an epidural mass, questionable hematoma, patient was seen by Dr. dr waller, and he underwent emergency C4T4 decompression and stabilization, and removal of tumor mass, possible hematoma.patient came back on the ventilator last night, and he is sedated, patient is not in any distress, blood pressure seems to be a bit e levated and propofol at 30 mcg/kg/m, his IV fluids at KVO. Chest x-ray this morning is basically unremarkable. Patient will be taken off propofol, will give a trial of weaning, and if tolerated, we'll proceed to extubating the patient.electrolytes are basically unremarkable, CBC is normal. ABG this morning showed a pO2 of 190 pCO2 35 pH of 7.48.renal profile is normal. Blood pressure is elevated, and I will try the patient on clevidipine drip in addition continues pain meds. Reevaluated today on 06/02/22, patient tolerated extubation well over the last 24 hours, patient is on room air, and his O2 sats is 97%. Patient was noted to have increase strength in his right lower extremity and his right upper extremity, he could raise both extremities well above the bed level. Clearly that's an improvement compared to his baseline. CBC is normal electrolytes are normal, renal profile is normal. Overall the patient is doing great, and he continues to have cervical collar in place. The patient is seen today 06/03/2022 in follow-up in the intensive care unit. He is awake and alert in no acute distress. His c-collar remains in place. On 05/31/2022 he had undergone a laminectomy for epidural hematoma/mass excision C4 through T4 with biopsy. Pathology is pending. He is currently maintaining good O2 saturations in the mid 90s on room air. He's afebrile. Hemodynamically stable. He has lactated Ringer's at 20 ML's per hour. Clevidipine has remained on hold. Current blood pressure 139/96. White count 12.5. Hemoglobin 15.3. Sodium 137. Potassium 3.8. BUN 17. Creatinine 0.61. He remains on cefazolin.. Continued on Decadron. The patient is seen today 06/04/2022 in follow-up in the intensive care unit. He is awake and alert in no acute distress. Maintaining good O2 saturations in the 90s on room air. He is still having issues with hypertension. He is having clevidipine drip at 3 mg an hour. 0.9 NS at KVO. C-collar remains in place. white count 10.6. Hemoglobin 14.1. Sodium 138. Potassium 3.4. BUN 20. Creatinine 0.60. Pathology is pending. He is continued on Decadron. Continued on cefazolin. The patient is seen today 06/05/2022 in follow-up in the intensive care unit. He is currently resting comfortably in bed. Maintaining good O2 saturations 90s on room air. He is down to clevidipine at 1 mg per hour. 0.9 normal saline at 20 ML's per hour. He is continued on lisinopril, metoprolol, losartan 50 mg daily to optimize his blood pressure. Cultures and Gram stain of the mass from his spine revealed no growth thus far. Pathology still pending. White count 8.8. Hemoglobin 14.8. Sodium 137. Potassium 3.4. BUN 18. Creatinine 0.56. The patient is seen today 06/06/2022 in follow-up in the intensive care unit. He has a MedSurg overflow. He is awake and alert in no acute distress. Resting comfortably in bed. Maintaining good O2 saturations in the 90s on room air. He is off the clevidipine. He is on normal saline at 20 ML's per hour. He collar remains in place. No neurological deficits. He's been up ambulating with as [facility]. Continues to utilize incentive spirometer. Pathology results revealed mostly peripheral blood and focal benign-appearing fibroadipose tissue. No evidence of malignancy. Objective - Vital Signs Vital signs: Vital Signs Temp 98.4 F 06/06/22 08:00 Pulse 61 06/06/22 10:00 Resp 23 06/06/22 10:00 BP 155/70 06/06/22 10:00 Pulse Ox 96 06/06/22 10:00 FiO2 45 06/01/22 08:00 Intake & Output 06/05/22 06/06/22 06/06/22 18:59 06:59 18:59 Intake Total 1860.0 240 320 Output Total 875 1000 300 Balance 985.0 -760 20 Weight 72.9 kg Intake: IV 200 240 80 Sodium Chloride 0.9% 1, 200 240 80 000 ml @ 20 mls/hr IV . Q24H [facility] Rx#:[id number] Intake, IV Titration 100.0 Amount Clevidipine Butyrate 25 50.0 mg In Empty Bag 1 bag @ 1 MG/HR 2 mls/hr IV .Q24H [facility] Rx#:[id number] ceFAZolin 2 gm In Sodium 50 Chloride 0.9% 50 ml @ 100 mls/hr IVPB Q8H [facility] Rx#: [id number] Oral 1560 240 Output: Urine 875 1000 300 Other: Voiding Method Bedside Commode Bedside Commode Bedside Commode Urinal Urinal Urinal # Voids 1 # Bowel Movements 1 ABP, PAP, CO, CI - Last Documented Arterial Blood Pressure 107/64 - Exam GENERAL EXAM: Alert, very pleasant 76-year-old male, on room air, comfortable in no apparent distress. HEAD: Normocephalic. EYES: Normal reaction of pupils, equal size. NOSE: Clear with pink turbinates. THROAT: No erythema or exudates. NECK: C-collar remains in place. No masses, no JVD. CHEST: No chest wall deformity. LUNGS: Equal air entry with no crackles, wheeze, rhonchi or dullness. CVS: S1 and S2 normal with no audible murmur, regular rhythm. ABDOMEN: No hepatosplenomegaly, normal bowel sounds, no guarding or rigidity. SPINE: No scoliosis or deformity SKIN: No rashes CENTRAL NERVOUS SYSTEM: No focal deficits, tone is normal in all 4 extremities. EXTREMITIES: There is no peripheral edema. No clubbing, no cyanosis. Per ipheral pulses are intact. - Labs CBC & Chem 7: 06/06/22 07:44 06/06/22 07:44 Labs: Abnormal Lab Results - Last 24 Hours (Table) 06/06/22 06/06/22 Range/Units 07:44 07:44 Lymphocytes # 0.5 L (1.0-4.8) k/uL Creatinine 0.65 L (0.66-1.25) mg/dL Glucose 113 H (74-99) mg/dL Calcium 8.2 L (8.4-10.2) mg/dL Microbiology - Last 24 Hours (Table) 06/01/22 01:06 Anaerobic Culture - Final Back 06/01/22 01:06 Anaerobic Culture - Final Back Assessment and Plan Assessment: Acute onset of progressive bilateral upper and lower extremity weakness of unclear etiology. Computed tomography scan of the brain revealed no acute abnormalities. Computed tomography scan of the cervical, thoracic and lumbar spine revealed degenerative changes throughout the lumbar spine with multilevel lumbar spondylosis and facet arthroplasty but no acute osseous abnormalities. MRIs revealed a large epidural posterior nonenhancing mass in the spinal canal. Possible epidural hematoma versus tumor. He did undergo laminectomy for epidural hematoma/mass excision C4 through T4 with biopsy on 05/31/2022. Pathology was negative for malignancy. Mostly peripheral blood and focal benign-appearing fibroadipose tissue. History of previous back surgery back in the 1980s Hypertension requiring clevidipine drip. Currently at 1 mg per hour. Continued on lisinopril, Lopressor, losartan. Nonsmoker Plan: The patient was seen and evaluated Medications and labs reviewed Stable and on room air Increase his activity as tolerated Currently Medr overflow We will continue to follow I have personally seen and examined the patient, performed the documentation and the assessment and plan as written. Number of minutes spent on the visit: 10.
--- NOTE | 2022-06-06 14:33 | P.PN ---
Subjective Progress Note Date: 06/06/22 I personally evaluated the patient last 05/31/2022 and it seems patient had cervical episdual hematoma s/p decompression surgery and feels his weakness in lower extremities and right upper extremity has improved. Please refer to Dr. Mota notes for further details. Objective - Vital Signs Vital signs: Vital Signs Temp 98.2 F 06/06/22 12:00 Pulse 72 06/06/22 12:30 Resp 21 06/06/22 13:30 BP 132/62 06/06/22 13:30 Pulse Ox 96 06/06/22 13:30 FiO2 45 06/01/22 08:00 Intake & Output 06/05/22 06/06/22 06/06/22 18:59 06:59 18:59 Intake Total 1860.0 240 620 Output Total 875 1000 300 Balance 985.0 -760 320 Weight 72.9 kg Intake: IV 200 240 140 Sodium Chloride 0.9% 1, 200 240 140 000 ml @ 20 mls/hr IV . Q24H [facility] Rx#:[id number] Intake, IV Titration 100.0 Amount Clevidipine Butyrate 25 50.0 mg In Empty Bag 1 bag @ 1 MG/HR 2 mls/hr IV .Q24H [facility] Rx#:[id number] ceFAZolin 2 gm In Sodium 50 Chloride 0.9% 50 ml @ 100 mls/hr IVPB Q8H [facility] Rx#: [id number] Oral 1560 480 Output: Urine 875 1000 300 Other: Voiding Method Bedside Commode Bedside Commode Bedside Commode Urinal Urinal Urinal # Voids 1 # Bowel Movements 1 ABP, PAP, CO, CI - Last Documented Arterial Blood Pressure 107/64 - Exam GENERAL: The patient is lying in bed and is not in acute distress. NEUROLOGICAL: Higher mental function: The patient is awake, alert, oriented to self, place and time. Patient is following commands. No aphasia and no neglect. Cranial nerves: The pupils are round, equal and reactive to light. Has mild right ptosis (and I do not feel worsening since last time I have evaluated him on 05/31/2022). Visual lawrence are full to confrontation throughout. Extraocular movement is intact no nystagmus is noted. Facial sensation is normal to touch throughout. The facial strength is normal throughout. Tongue is midline and moved [id number] without any difficulty. No dysarthria is noted. Motor: The strength is 5 over 5 throughout uppers. Hip flexion bilaterally are 4+. Otherwise lowers are 5/5. Normal tone and bulk. Cerebellum: Normal finger to nose bilaterally. Sensation: Sensation is normal to touch throughout. - Labs CBC & Chem 7: 06/06/22 07:44 06/06/22 07:44 Labs: Abnormal Lab Results - Last 24 Hours (Table) 06/06/22 06/06/22 Range/Units 07:44 07:44 Lymphocytes # 0.5 L (1.0-4.8) k/uL Creatinine 0.65 L (0.66-1.25) mg/dL Glucose 113 H (74-99) mg/dL Calcium 8.2 L (8.4-10.2) mg/dL Microbiology - Last 24 Hours (Table) 06/01/22 01:06 Anaerobic Culture - Final Back 06/01/22 01:06 Anaerobic Culture - Final Back Assessment and Plan Assessment: * Cervical Epidural hematoma with bilateral weakness, right more than left (per MRI, hematoma extending from C5-6 through T2-3) with spinal cord compression, status post decompressive surgery. Rule out underlying AVM.---strength is improving post surgery * Transient hallucinations, probably due to delirium from opiates and steroids. * History of hypertension * Reported history of lumbar spine surgery * History of prostate issues s/p TURP in 2014 Plan: * Patient's muscle strength is improving gradually. * PT and OT are consulted. * Final pathology revealed mostly peripheral blood and focal benign-appearing fibroadipose tissue and possible focal epidural lining cells. This is consistent with epidural hematoma. * Suggest a repeat MRI of cervical spine with and without contrast down the line to rule out underlying spinal AVM. Suggest neurosurgical consultation perhaps as an outpatient. * Orthopedic team is on board. * Will defer medical management to the primary team. * Upon discharge, recommend to follow-up with neurosurgeon and neurologist within 1-2 weeks. Time with Patient: Less than 30
[2022-06-06] MEDS: clonazePAM 0.5 MG TAB PO SCH (20:49)
[2022-06-06] MEDS: QUEtiapine 25 MG TAB PO SCH (20:50)
--- NOTE | 2022-06-07 05:39 | P.PN ---
Subjective Progress Note Date: 06/06/22 Chief Complaint: Right arm the leg weakness This is a 76-year-old patient who follows with Dr. Ramirez. Chronic stable medical conditions include GERD, hypertension, REM sleep disorder This morning around 5:30 AM patient woke up with pain in the medial part of the right scalpula posteriorly. Subsequent he started noticing pain in the right arm in the joints. Right arm became weak. Pain progressed to become rather significant. No fever no chills. Pain then progressed to go to the neck. was concerned about a cardiac cause brought the patient to the ER. In the pa [place]king lot when patient is walking to the hospital noted that his right leg was weak. Had to be supported. In the ER patient left leg also became weak. Became incontinent. Mata catheter was placed. Consultation to neurology, orthopedic was done. Also to networker to move the patient to the ICU. Patient denies any fever and chills. 06/01/2022: Yesterday evening cervical thoracic spine MRI showed a mass. Dr. Abrams to the patient to the OR. Formal report is pending. describes a hematoma being removed. Currently the patient ICU. Hard collar In place. Cervical drain. Lethargic. and son at the bedside. 06/02/2022: ICU. Patient has a Hemovac remains in place. Moving his right arm and right leg better. Mata catheter in place. Did eat some yogurt. Pain better. Pathology pending. Discussed with patient and at the bedside. Remains on Decadron. IV Ancef. 06/03/2022: ICU. Hemovac in place. Pain in the neck. Hard collar. Eating somewhat better today. Moving right arm and right leg better. Has been out of bed. Remains on cleviprex 5 blood pressure. Pathology still pending from the surgery. Spoke to the patient and the . 06/04/2022 Patient is seen in follow-up this morning continues to be in the ICU with multiple medical consultations following. Patient continues with Hemovac in place with orthopedics following closely. Patient is continued on Cleviprex and weaning as tolerated and blood pressure remains elevated. Patient was also continued on IV Decadron along with pain management per orthopedic services and IV cefazolin. Recommend physical therapy daily as patient continues with weakness. Per orthopedic recommendations patient is to continue with hard collar. Patient is afebrile with no reports of chest pain or shortness of breath. Patient is tolerating diet and encouraged oral intake. Awaiting pathology at this time. 06/05/2022 Patient is seen this morning continues to be in the ICU as patient is continued on cleviprex for blood pressure control. Patient is taking lisinopril and will add hydralazine PO for better blood pressure control. Patient is a down grade out of the ICU if off cleviprex. Weaning and currently held. Patient is up and working with physical therapy and reports to his sensations and movements of the extremities are improving although continues with weakness. Recommend PT daily. Encouraged oral intake. Currently awaiting pathology with ortho following as well. 06/06/2022 Patient is seen today with family at the bedside. Patient is smiling and sitting up in the chair. Patient reports he continues with weakness but feels better. Patient continues in the ICU for now although awaiting a bed on med surg. Continue hard collar. Patient awaiting pathology from the evacuation of the hematoma with ortho following. Patient is eating better alhtough needs assistance due to the hard collar and weakness. Patient is afebrile and denies chest pain or shortness of breath. Recommend PT daily. Blood pressure better controlled and will continue current regimen. Review of systems: Constitutional: No reports of fatigue, fever, or chills Cardiovascular: No reports of chest pain or palpitations Respiratory: No reports of shortness of breath or cough GI: No reports of nausea, vomiting, or diarrhea : No reports of dysuria or retention Neurovascular: reports of generalized weakness All medications have been reviewed Physical examination: GENERAL: sitting up in the chair, awake, answering questions, less tearful today EYES: Pupils equal. Conjunctiva normal. HEENT: External appearance of nose and ears normal, oral cavity grossly normal. NECK: Hard collar in place HEART: First and second heart sounds are normal; no edema. LUNGS: Respiratory rate normal; clear to auscultation. ABDOMEN: Soft, nontender, no masses palpable. PSYCH: AO 3, mood and affect normal, slightly anxious MUSCULOSKELETAL:No Clubbing/cyanosis;muscles-grossly intact NEUROLOGICAL: Cranial nerves grossly intact; no facial asymmetry, able to lift his right arm and right leg. 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 Taken to the or on 05/31/[address] Abrams. Possible hematoma evacuated. awaiting r esults -Essential hypertension, uncontrolled -Acute metabolic encephalopathy. Multifactorial: Corrected -Mild thrombocytopenia, improving -Hypokalemia: Corrected -GERD -Chronic REM disorder insomnia -Full code Plan: Patient is to continue with hard collar per orthopedic recommendations and recommend physical therapy daily. Recommend continue current medications and has been off Cleviprex for over 24 hours. Continue current bp meds Recommend telemetry monitoring Currently awaiting pathology Encouraged oral intake and increased activity as tolerated Follow-up labs recommended Awaiting med surg bed to transfer out of the ICU Prognosis is guarded The impression and plan of care has been dictated by Jessie Urbano, Nurse Practitioner as directed. Dr. Gilbert MD I have performed a history and examination and MDM of this patient, discussed the same with the dictator, and agree with the dictator's assessment and plan as written ,documented as a scribe. Based on total visit time, I have performed more than 50% of the visit. Objective - Vital Signs Vital signs: Vital Signs Temp 97.9 F 06/06/22 04:00 Pulse 61 06/06/22 07:00 Resp 14 06/06/22 07:00 BP 144/69 06/06/22 07:00 Pulse Ox 97 06/06/22 07:00 FiO2 45 06/01/22 08:00 Intake & Output 06/05/22 06/06/22 06/06/22 18:59 06:59 18:59 Intake Total 1860.0 240 20 Output Total 875 1000 0 Balance 985.0 -760 20 Weight 72.9 kg Intake: IV 200 240 20 Sodium Chloride 0.9% 1, 200 240 20 000 ml @ 20 mls/hr IV . Q24H [facility] Rx#:[id number] Intake, IV Titration 100.0 Amount Clevidipine Butyrate 25 50.0 mg In Empty Bag 1 bag @ 1 MG/HR 2 mls/hr IV .Q24H [facility] Rx#:[id number] ceFAZolin 2 gm In Sodium 50 Chloride 0.9% 50 ml @ 100 mls/hr IVPB Q8H [facility] Rx#: [id number] Oral 1560 Output: Urine 875 1000 0 Other: Voiding Method Bedside Commode Bedside Commode Urinal Urinal # Voids 1 # Bowel Movements 1 ABP, PAP, CO, CI - Last Documented Arterial Blood Pressure 107/64 - Labs CBC & Chem 7: 06/06/22 07:44 06/06/22 07:44 Labs: Abnormal Lab Results - Last 24 Hours (Table) 06/06/22 06/06/22 Range/Units 07:44 07:44 Lymphocytes # 0.5 L (1.0-4.8) k/uL Creatinine 0.65 L (0.66-1.25) mg/dL Glucose 113 H (74-99) mg/dL Calcium 8.2 L (8.4-10.2) mg/dL Microbiology - Last 24 Hours (Table) 06/01/22 01:06 Anaerobic Culture - Final Back 06/01/22 01:06 Anaerobic Culture - Final Back
[2022-06-07] MEDS: ACETAMINOPHEN TAB 325 MG TAB PO SCH ×4 (05:46→23:33)
[2022-06-07] MEDS: hydrALAZINE HCL 20 MG/ML 1 ML VIAL IVP PRN (06:07)
--- NOTE | 2022-06-07 08:47 | P.PN ---
Subjective Progress Note Date: 06/07/22 Principal diagnosis: Status post C4-T4 decompression with posterior lateral stabilization Patient seen and examined at bedside. Patient is resting bed. Surgical dressing CDI. Hard cervical collar present. Patient continues to work with PT, he states he is ambulating to restroom with walker x1 assist. He reports his biggest challenge is standing from a seated position. Patient is moving all extremities FROM. Patient denies any fever/chills, nausea/vomiting, or chest pain. Objective - Vital Signs Vital signs: Vital Signs Temp 98.2 F 06/07/22 04:38 Pulse 62 06/07/22 04:38 Resp 18 06/07/22 04:38 BP 154/76 06/07/22 06:40 Pulse Ox 98 06/07/22 04:38 FiO2 45 06/01/22 08:00 Intake & Output 06/06/22 06/07/22 06/07/22 18:59 06:59 18:59 Intake Total 620 340 Output Total 300 Balance 320 340 Intake: IV 140 240 Sodium Chloride 0.9% 1, 140 240 000 ml @ 20 mls/hr IV . Q24H [facility] Rx#:[id number] Intake, IV Titration 100 Amount ceFAZolin 2 gm In Sodium 100 Chloride 0.9% 50 ml @ 100 mls/hr IVPB Q8H [facility] Rx#: [id number] Oral 480 Output: Urine 300 Other: Voiding Method Bedside Commode Bedside Commode Urinal Urinal # Voids 2 2 # Bowel Movements 1 ABP, PAP, CO, CI - Last Documented Arterial Blood Pressure 107/64 - Exam Physical Examination General: The patient is awake and alert, in no acute distress Skin: Skin is warm and dry with no obvious rashes or lesions. Hairy patches absent, no dorsal skin dimples, no cafe au lait spots. Surgical incision to posterior cervical and thoracic region. Eye: Pupils are equal, round and reactive to light, extra-ocular movements are intact; there is normal conjunctiva bilaterally. Neck: The neck is supple, there is slight tenderness and limited ROM due to surgical procedure. Cardiovascular: There is a regular rate and rhythm. No murmur, rub or gallop is appreciated. Respiratory: Lungs are clear to auscultation, respirations are non-labored, breath sounds are equal. Gastrointestinal: Soft, non-distended, non-tender abdomen . Back: There is no tenderness to palpation in the midline, paralumbar, parathoracic or buttocks region. There is no obvious deformity . Musculoskeletal: ROM limited secondary to pain and stiffness from surgical procedure. Muscle strength in all major muscle groups 3+/5 in bilateral upper extremities, and 4-/5 in bilateral lower extremities. Neurological: CN 2-12 intact. There are no obvious motor or sensory deficits. Movement and coordination equal and intact. Sensory exam to light touch intact C5-T1 and intact from L2-S1. Reflexes 2/4 in bilateral upper and lower extremities. Negative Hoffmans, babinski, and clonus signs. Psychiatric: Cooperative, appropriate mood & affect, normal judgment. - Labs CBC & Chem 7: 06/06/22 07:44 06/06/22 07:44 Labs: Abnormal Lab Results - Last 24 Hours (Table) 06/06/22 06/06/22 Range/Units 07:44 07:44 Lymphocytes # 0.5 L (1.0-4.8) k/uL Creatinine 0.65 L (0.66-1.25) mg/dL Glucose 113 H (74-99) mg/dL Calcium 8.2 L (8.4-10.2) mg/dL Assessment and Plan Assessment: Post-op day 7: status post C4-T4 decompression with posterior lateral stabilization Other medical comorbidities Plan: -Appreciate sap basis consultant and team management. -Activity: Ambulate QID, OOB all meals, up and about, limit lifting bending twisting to less than 5 lbs. No pushing, pulling, or overhead activity. Use walker or cane if needed for stability. -Daily PT/OT, increase ambulation strength and balance. -Hard cervical collar at all times, may remove to shower. -Pain control: Adequate at this time -Meds: reviewed, continuing with titrating steroids. -GI ppx: senna, Miralax -Hygiene: Shower today. Maintain dressing clean and dry. -Encourage IS 10x/hr -Other medical specialty recommendations -We'll continue to follow during inpatient stay, patient is cleared for discharge from orthopedic standpoint. *I reviewed and discussed this case with my attending Dr. Abrams, whom has reviewed this chart and films and is in agreement with assessment and plan of care as outlined above. I have personally seen and examined the patient, performed the documentation and the assessment and plan as written. Number of minutes spent on the visit: 20m.
[2022-06-07] MEDS: CHOLECALCIFEROL 25 MCG (1000 IU) TABLET PO SCH (09:17)
[2022-06-07] MEDS: carvediloL 6.25 MG TAB PO SCH ×2 (09:18→18:10)
[2022-06-07] MEDS: lisinopriL 20 MG TAB PO SCH (09:18)
[2022-06-07] MEDS: DEXAMETHASONE SOD PHOSPHATE 4 MG/ML 1 ML VIAL IVP SCH ×2 (09:18→20:52)
[2022-06-07] MEDS: FAMOTIDINE 20 MG TAB PO SCH ×2 (09:18→20:53)
[2022-06-07] MEDS: MULTIVITAMINS, THERA 1 EACH TAB PO SCH (09:18)
[2022-06-07] MEDS: POTASSIUM CHLORIDE ER 10 MEQ TAB.ER.PRT PO SCH (09:18)
[2022-06-07] MEDS: SODIUM CHLORIDE 0.9% 1,000 ML IV SCH (09:19)
[2022-06-07] MEDS: MESALAMINE 1.2 GM PO SCH (09:19)
[2022-06-07] MEDS: PANTOPRAZOLE 40 MG/10 ML VIAL IVP SCH (09:20)
[2022-06-07] MEDS: hydrALAZINE HCL 50 MG TAB PO SCH ×3 (09:26→20:57)
[2022-06-07 11:42] VITALS: BMI 21.8
--- NOTE | 2022-06-07 13:14 | P.PN ---
Subjective Progress Note Date: 06/07/22 The patient is seen at bedside and doing drastically better. He is wearing cervical collar per Orthopedic. Denies any new neurological issues. Objective - Vital Signs Vital signs: Vital Signs Temp 97.6 F 06/07/22 12:51 Pulse 62 06/07/22 12:51 Resp 19 06/07/22 12:51 BP 179/72 06/07/22 12:51 Pulse Ox 98 06/07/22 12:51 FiO2 45 06/01/22 08:00 Intake & Output 06/06/22 06/07/22 06/07/22 18:59 06:59 18:59 Intake Total 620 340 Output Total 300 Balance 320 340 Weight 72.9 kg Intake: IV 140 240 Sodium Chloride 0.9% 1, 140 240 000 ml @ 20 mls/hr IV . Q24H [facility] Rx#:[id number] Intake, IV Titration 100 Amount ceFAZolin 2 gm In Sodium 100 Chloride 0.9% 50 ml @ 100 mls/hr IVPB Q8H [facility] Rx#: [id number] Oral 480 Output: Urine 300 Other: Voiding Method Bedside Commode Bedside Commode Urinal Urinal # Voids 2 2 # Bowel Movements 1 ABP, PAP, CO, CI - Last Documented Arterial Blood Pressure 107/64 - Exam GENERAL: The patient is lying in bed and is not in acute distress. HENT: Is wearing cervical collar. NEUROLOGICAL: Higher mental function: The patient is awake, alert, oriented to self, place and time. Patient is following commands. No aphasia and no neglect. Cranial nerves: The pupils are round, equal and reactive to light. Has mild right ptosis (and I do not feel worsening since last time I have evaluated him on 05/31/2022). Visual lawrence are full to confrontation throughout. Extraocular movement is intact no nystagmus is noted. Facial sensation is normal to touch throughout. The facial strength is normal throughout. Tongue is midline and moved [id number] without any difficulty. No dysarthria is noted. Motor: The strength is 5 over 5 throughout uppers. Bilateral knee flexion is 5- . Otherwise lowers are 5/5. Normal tone and bulk. Cerebellum: Normal finger to nose bilaterally. Sensation: Sensation is normal to touch throughout. - Labs CBC & Chem 7: 06/06/22 07:44 06/06/22 07:44 Assessment and Plan Assessment: * Cervical Epidural hematoma with bilateral weakness, right more than left (per MRI, hematoma extending from C5-6 through T2-3) with spinal cord compression, status post decompressive surgery. Unsure cause---strength is improving post surgery * Transient hallucinations, probably due to delirium from opiates and steroids. * History of hypertension * Reported history of lumbar spine surgery * History of prostate issues s/p TURP in 2015 Plan: * Patient's muscle strength is improving gradually. * PT and OT are consulted. * Final pathology revealed mostly peripheral blood and focal benign-appearing fibroadipose tissue and possible focal epidural lining cells. This is consistent with epidural hematoma. * Suggest a repeat MRI of cervical spine with and without contrast within 2-3 weeks to rule any new changes, new mass not seen on initial MRI. I spoke with Dr. Abrams and he feels unlikely AVM. Suggest neurosurgical consultation as an outpatient. * Orthopedic team is on board. * Will defer medical management to the primary team. * Upon discharge, recommend to follow-up with neurosurgeon and neurologist within 1-2 weeks. Also follow-up with Orthopedic team as outpatient. Otherwise no additional work-up. Please notify neurology team if any further concerns. Time with Patient: Less than 30
[2022-06-07] MEDS: CLEVIDIPINE BUTYRATE 25 MG in EMPTY BAG 1 BAG IV SCH (14:20)
--- NOTE | 2022-06-07 19:12 | P.PN ---
Subjective Progress Note Date: 06/07/22 Chief Complaint: Right arm the leg weakness This is a 76-year-old patient who follows with Dr. Ramirez. Chronic stable medical conditions include GERD, hypertension, REM sleep disorder This morning around 5:30 AM patient woke up with pain in the medial part of the right scalpula posteriorly. Subsequent he started noticing pain in the right arm in the joints. Right arm became weak. Pain progressed to become rather significant. No fever no chills. Pain then progressed to go to the neck. was concerned about a cardiac cause brought the patient to the ER. In the pa rking lot when patient is walking to the hospital noted that his right leg was weak. Had to be supported. In the ER patient left leg also became weak. Became incontinent. Mata catheter was placed. Consultation to neurology, orthopedic was done. Also to medical liaison to move the patient to the ICU. Patient denies any fever and chills. 06/01/2022: Yesterday evening cervical thoracic spine MRI showed a mass. Dr. Abrams to the patient to the OR. Formal report is pending. describes a hematoma being removed. Currently the patient ICU. Hard collar In place. Cervical drain. Lethargic. and son at the bedside. 06/02/2022: ICU. Patient has a Hemovac remains in place. Moving his right arm and right leg better. Mata catheter in place. Did eat some yogurt. Pain better. Pathology pending. Discussed with patient and at the bedside. Remains on Decadron. IV Ancef. 06/03/2022: ICU. Hemovac in place. Pain in the neck. Hard collar. Eating somewhat better today. Moving right arm and right leg better. Has been out of bed. Remains on cleviprex 5 blood pressure. Pathology still pending from the surgery. Spoke to the patient and the . 06/04/2022 Patient is seen in follow-up this morning continues to be in the ICU with multiple medical consultations following. Patient continues with Hemovac in place with orthopedics following closely. Patient is continued on Cleviprex and weaning as tolerated and blood pressure remains elevated. Patient was also continued on IV Decadron along with pain management per orthopedic services and IV cefazolin. Recommend physical therapy daily as patient continues with weakness. Per orthopedic recommendations patient is to continue with hard collar. Patient is afebrile with no reports of chest pain or shortness of breath. Patient is tolerating diet and encouraged oral intake. Awaiting pathology at this time. 06/05/2022 Patient is seen this morning continues to be in the ICU as patient is continued on cleviprex for blood pressure control. Patient is taking lisinopril and will add hydralazine PO for better blood pressure control. Patient is a down grade out of the ICU if off cleviprex. Weaning and currently held. Patient is up and working with physical therapy and reports to his sensations and movements of the extremities are improving although continues with weakness. Recommend PT daily. Encouraged oral intake. Currently awaiting pathology with ortho following as well. 06/06/2022 Patient is seen today with family at the bedside. Patient is smiling and sitting up in the chair. Patient reports he continues with weakness but feels better. Patient continues in the ICU for now although awaiting a bed on med surg. Continue hard collar. Patient awaiting pathology from the evacuation of the hematoma with ortho following. Patient is eating better alhtough needs assistance due to the hard collar and weakness. Patient is afebrile and denies chest pain or shortness of breath. Recommend PT daily. Blood pressure better controlled and will continue current regimen. 06/07/2022 Patient is seen out of the ICU today and has been moved to the medical surgical unit being closely monitored with orthopedics following. Neurology following as well and cleared for discharge with outpatient neurosurgery consult. Patient is working with PT/OT although continues with significant weakness. OT was able to work again with the patient as he has multiple stairs in the home to get up and into the house and also within the house and family is concerned of unsafe discharge planning today. Will consult Dr. Briceno for possible inpatient rehab. Patient is afebrile and denies chest pain or shortness of breath. Patient denies nausea or vomiting. Patient reports trouble sleeping at night. Review of systems: Constitutional: No reports of fatigue, fever, or chills Cardiovascular: No reports of chest pain or palpitations Respiratory: No reports of shortness of breath or cough GI: No reports of nausea, vomiting, or diarrhea : No reports of dysuria or retention Neurovascular: reports of generalized weakness, reports neck discomfort from the collar All medications have been reviewed Physical examination: GENERAL: sitting up in the chair, awake, answering questions, less tearful today EYES: Pupils equal. Conjunctiva normal. HEENT: External appearance of nose and ears normal, oral cavity grossly normal. NECK: Hard collar in place HEART: First and second heart sounds are normal; no edema. LUNGS: Respiratory rate normal; clear to auscultation. ABDOMEN: Soft, nontender, no masses palpable. PSYCH: AO 3, mood and affect normal, slightly anxious MUSCULOSKELETAL:No Clubbing/cyanosis;muscles-weak NEUROLOGICAL: Cranial nerves grossly intact; no facial asymmetry, able to lift his right arm and right leg. strength of marketing associate 4/5 bilaterally improved Assessment: -Mass in the area of C5-C6-T2-T3 about 8.5 mm in thickness on MRI. Taken to the or on 05/31/[address] Abrams. Report most likely hematoma -Essential hypertension, uncontrolled -Acute metabolic encephalopathy. Multifactorial: Corrected -Mild thrombocytopenia, improving -Hypokalemia: Corrected -gait dysfunction -GERD -Chronic REM disorder insomnia -Full code Plan: Patient is to continue with hard collar per orthopedic recommendations and recommend physical therapy daily. Recommend continue current medications and monitoring of blood pressure. Continue current bp meds Recommend telemetry monitoring Pathology most likely hematoma Encouraged oral intake and increased activity as tolerated Follow-up labs recommended Consult placed to Dr. Briceno for inpatient rehab and pending. Prognosis is guarded The impression and plan of care has been dictated by Jessie Urbano, Nurse Practitioner as directed. Dr. Gilbert MD I have performed a history and examination and MDM of this patient, discussed the same with the dictator, and agree with the dictator's assessment and plan as written ,documented as a scribe. Based on total visit time, I have performed more than 50% of the visit. Objective - Vital Signs Vital signs: Vital Signs Temp 98.2 F 06/07/22 04:38 Pulse 62 06/07/22 04:38 Resp 18 06/07/22 04:38 BP 154/76 06/07/22 06:40 Pulse Ox 98 06/07/22 04:38 FiO2 45 06/01/22 08:00 Intake & Output 06/06/22 06/07/22 06/07/22 18:59 06:59 18:59 Intake Total 620 340 Output Total 300 Balance 320 340 Intake: IV 140 240 Sodium Chloride 0.9% 1, 140 240 000 ml @ 20 mls/hr IV . Q24H [facility] Rx#:[id number] Intake, IV Titration 100 Amount ceFAZolin 2 gm In Sodium 100 Chloride 0.9% 50 ml @ 100 mls/hr IVPB Q8H [facility] Rx#: [id number] Oral 480 Output: Urine 300 Other: Voiding Method Bedside Commode Bedside Commode Urinal Urinal # Voids 2 2 # Bowel Movements 1 ABP, PAP, CO, CI - Last Documented Arterial Blood Pressure 107/64 - Labs CBC & Chem 7: 06/06/22 07:44 06/06/22 07:44
[2022-06-07] MEDS: QUEtiapine 25 MG TAB PO SCH (20:52)
[2022-06-07] MEDS: clonazePAM 0.5 MG TAB PO SCH (20:54)
[2022-06-08] MEDS: hydrALAZINE HCL 20 MG/ML 1 ML VIAL IVP PRN (04:09)
[2022-06-08] MEDS ORDERED: TEMAZEPAM 15 MG CAP PO PRN (05:03)
[2022-06-08] MEDS: ACETAMINOPHEN TAB 325 MG TAB PO SCH ×4 (06:08→23:00)
[2022-06-08] MEDS: carvediloL 6.25 MG TAB PO SCH ×2 (07:52→17:24)
[2022-06-08] MEDS: MULTIVITAMINS, THERA 1 EACH TAB PO SCH (07:52)
[2022-06-08] MEDS: hydrALAZINE HCL 50 MG TAB PO SCH ×3 (07:52→23:01)
[2022-06-08] MEDS: FAMOTIDINE 20 MG TAB PO SCH ×2 (07:53→21:38)
[2022-06-08] MEDS: DEXAMETHASONE SOD PHOSPHATE 4 MG/ML 1 ML VIAL IVP SCH ×2 (07:53→21:38)
[2022-06-08] MEDS: CHOLECALCIFEROL 25 MCG (1000 IU) TABLET PO SCH (07:53)
[2022-06-08] MEDS: lisinopriL 20 MG TAB PO SCH (07:53)
[2022-06-08] MEDS: POTASSIUM CHLORIDE ER 10 MEQ TAB.ER.PRT PO SCH (07:53)
[2022-06-08] MEDS: SODIUM CHLORIDE 0.9% 1,000 ML IV SCH (07:53)
[2022-06-08] MEDS: PANTOPRAZOLE 40 MG/10 ML VIAL IVP SCH (07:54)
[2022-06-08] MEDS: MESALAMINE 1.2 GM PO SCH (07:55)
--- NOTE | 2022-06-08 09:20 | P.PN ---
Subjective Progress Note Date: 06/08/22 (Late Entry 0745) Principal diagnosis: Status post C4-T4 decompression with posterior lateral stabilization Patient seen and examined at bedside. Patient is resting bed. Surgical dressing CDI. Hard cervical collar present. Patient reports he had worked with PT performing the stairs yesterday and felt he did well. Patient and family have agreed on rehab at discharge to continue his recovery. Patient denies any fever/chills, nausea/vomiting, or chest pain. Objective - Vital Signs Vital signs: Vital Signs Temp 97.4 F L 06/08/22 04:01 Pulse 62 06/08/22 04:01 Resp 16 06/08/22 04:01 BP 146/66 06/08/22 04:55 Pulse Ox 97 06/08/22 04:01 FiO2 45 06/01/22 08:00 Intake & Output 06/07/22 06/08/22 06/08/22 18:59 06:59 18:59 Intake Total 50 550 240 Output Total 675 Balance 50 -125 240 Weight 72.9 kg Intake: Intake, IV Titration 50 50 Amount ceFAZolin 2 gm In Sodium 50 50 Chloride 0.9% 50 ml @ 100 mls/hr IVPB Q8H [facility] Rx#: [id number] Oral 500 240 Output: Urine 675 Other: Voiding Method Bedside Commode Bedside Commode Urinal Urinal ABP, PAP, CO, CI - Last Documented Arterial Blood Pressure 107/64 - Exam Physical Examination General: The patient is awake and alert, in no acute distress Skin: Skin is warm and dry with no obvious rashes or lesions. Hairy patches absent, no dorsal skin dimples, no cafe au lait spots. Surgical incision to posterior cervical and thoracic region. Eye: Pupils are equal, round and reactive to light, extra-ocular movements are intact; there is normal conjunctiva bilaterally. Neck: The neck is supple, there is slight tenderness and limited ROM due to surgical procedure. Cardiovascular: There is a regular rate and rhythm. No murmur, rub or gallop is appreciated. Respiratory: Lungs are clear to auscultation, respirations are non-labored, breath sounds are equal. Gastrointestinal: Soft, non-distended, non-tender abdomen . Back: There is no tenderness to palpation in the midline, paralumbar, parathoracic or buttocks region. There is no obvious deformity . Musculoskeletal: ROM limited secondary to pain and stiffness from surgical procedure. Muscle strength in all major muscle groups 4-/5 in bilateral upper extremities, and 4+/5 in bilateral lower extremities. Neurological: CN 2-12 intact. There are no obvious motor or sensory deficits. Movement and coordination equal and intact. Sensory exam to light touch intact C5-T1 and intact from L2-S1. Reflexes 2/4 in bilateral upper and lower extremities. Negative Hoffmans, babinski, and clonus signs. Psychiatric: Cooperative, appropriate mood & affect, normal judgment. - Labs CBC & Chem 7: 06/06/22 07:44 06/06/22 07:44 Assessment and Plan Assessment: Post-op day 8: status post C4-T4 decompression with posterior lateral stabilization Other medical comorbidities Plan: -Appreciate it consultant and team management. -Activity: Ambulate QID, OOB all meals, up and about, limit lifting bending twisting to less than 5 lbs. No pushing, pulling, or overhead activity. Use wal ker or cane if needed for stability. -Daily PT/OT, increase ambulation strength and balance. -Hard cervical collar at all times, may remove to shower. -Pain control: Adequate at this time -Meds: reviewed, continuing with titrating steroids. -GI ppx: senna, Miralax -Hygiene: Shower today. Maintain dressing clean and dry. -Encourage IS 10x/hr -Other medical specialty recommendations -We'll continue to follow during inpatient stay, patient is cleared for discharge from orthopedic standpoint. *I reviewed and discussed this case with my attending Dr. Abrams, whom has reviewed this chart and films and is in agreement with assessment and plan of care as outlined above. I have personally seen and examined the patient, performed the documentation and the assessment and plan as written. Number of minutes spent on the visit: 20m.
--- NOTE | 2022-06-08 16:36 | P.PN ---
Subjective Progress Note Date: 06/08/22 Chief Complaint: Right arm the leg weakness This is a 76-year-old patient who follows with Dr. Ramirez. Chronic stable medical conditions include GERD, hypertension, REM sleep disorder This morning around 5:30 AM patient woke up with pain in the medial part of the right scalpula posteriorly. Subsequent he started noticing pain in the right arm in the joints. Right arm became weak. Pain progressed to become rather significant. No fever no chills. Pain then progressed to go to the neck. was concerned about a cardiac cause brought the patient to the ER. In the pa rking lot when patient is walking to the hospital noted that his right leg was weak. Had to be supported. In the ER patient left leg also became weak. Became incontinent. Mata catheter was placed. Consultation to neurology, orthopedic was done. Also to element winding machine tender to move the patient to the ICU. Patient denies any fever and chills. 06/01/2022: Yesterday evening cervical thoracic spine MRI showed a mass. Dr. Abrams to the patient to the OR. Formal report is pending. describes a hematoma being removed. Currently the patient ICU. Hard collar In place. Cervical drain. Lethargic. and son at the bedside. 06/02/2022: ICU. Patient has a Hemovac remains in place. Moving his right arm and right leg better. Mata catheter in place. Did eat some yogurt. Pain better. Pathology pending. Discussed with patient and at the bedside. Remains on Decadron. IV Ancef. 06/03/2022: ICU. Hemovac in place. Pain in the neck. Hard collar. Eating somewhat better today. Moving right arm and right leg better. Has been out of bed. Remains on cleviprex 5 blood pressure. Pathology still pending from the surgery. Spoke to the patient and the . 06/04/2022 Patient is seen in follow-up this morning continues to be in the ICU with multiple medical consultations following. Patient continues with Hemovac in place with orthopedics following closely. Patient is continued on Cleviprex and weaning as tolerated and blood pressure remains elevated. Patient was also continued on IV Decadron along with pain management per orthopedic services and IV cefazolin. Recommend physical therapy daily as patient continues with weakness. Per orthopedic recommendations patient is to continue with hard collar. Patient is afebrile with no reports of chest pain or shortness of breath. Patient is tolerating diet and encouraged oral intake. Awaiting pathology at this time. 06/05/2022 Patient is seen this morning continues to be in the ICU as patient is continued on cleviprex for blood pressure control. Patient is taking lisinopril and will add hydralazine PO for better blood pressure control. Patient is a down grade out of the ICU if off cleviprex. Weaning and currently held. Patient is up and working with physical therapy and reports to his sensations and movements of the extremities are improving although continues with weakness. Recommend PT daily. Encouraged oral intake. Currently awaiting pathology with ortho following as well. 06/06/2022 Patient is seen today with family at the bedside. Patient is smiling and sitting up in the chair. Patient reports he continues with weakness but feels better. Patient continues in the ICU for now although awaiting a bed on med surg. Continue hard collar. Patient awaiting pathology from the evacuation of the hematoma with ortho following. Patient is eating better alhtough needs assistance due to the hard collar and weakness. Patient is afebrile and denies chest pain or shortness of breath. Recommend PT daily. Blood pressure better controlled and will continue current regimen. 06/07/2022 Patient is seen out of the ICU today and has been moved to the medical surgical unit being closely monitored with orthopedics following. Neurology following as well and cleared for discharge with outpatient neurosurgery consult. Patient is working with PT/OT although continues with significant weakness. OT was able to work again with the patient as he has multiple stairs in the home to get up and into the house and also within the house and family is concerned of unsafe discharge planning today. Will consult Dr. Briceno for possible inpatient rehab. Patient is afebrile and denies chest pain or shortness of breath. Patient denies nausea or vomiting. Patient reports trouble sleeping at night. 06/08/2022 Patient is seen today and spoke with PT/OT and is scheduled to have daily physical therapy and consult was placed to Dr. Briceno for possible inpatient rehab at [facility]. Ortho and neuro have cleared the patient and will need outpatient follow up. Patient is agreeable to inpatient rehab prior to returning home to build strength and mobility. Patient with prolonged hospitalization becoming more weak and would greatly benefit from aggressive therapy to safely return home. Continued on IV steroids per ortho and will provide steroid taper on discharge. Encouraged oral intake and needs assistance with meals due to the hard collar. Review of systems: Constitutional: No reports of fatigue, fever, or chills Cardiovascular: No reports of chest pain or palpitations Respiratory: No reports of shortness of breath or cough GI: No reports of nausea, vomiting, or diarrhea : No reports of dysuria or retention Neurovascular: reports of generalized weakness, reports neck discomfort from the collar All medications have been reviewed Physical examination: GENERAL: sitting up in the chair, awake, answering questions EYES: Pupils equal. Conjunctiva normal. HEENT: External appearance of nose and ears normal, oral cavity grossly normal. NECK: Hard collar in place HEART: First and second heart sounds are normal; no edema. LUNGS: Respiratory rate normal; clear to auscultation. ABDOMEN: Soft, nontender, no masses palpable. PSYCH: AO 3, mood and affect normal, slightly anxious MUSCULOSKELETAL:No Clubbing/cyanosis;muscles-weak NEUROLOGICAL: Cranial nerves grossly intact; no facial asymmetry, able to lift his right arm and right leg. strength of fashion styling intern 4/5 bilaterally improved Assessment: -Mass in the area of C5-C6-T2-T3 about 8.5 mm in thickness on MRI. Taken to the or on 05/31/[address] Abrams. Report most likely hematoma -Essential hypertension, uncontrolled -Acute metabolic encephalopathy. Multifactorial: Corrected -Mild thrombocytopenia, improving -Hypokalemia: Corrected -gait dysfunction -GERD -Chronic REM disorder insomnia -Full code Plan: Patient is to continue with hard collar per orthopedic recommendations and recommend physical therapy daily. Recommend continue current medications and monitoring of blood pressure. Continue current bp meds Recommend telemetry monitoring Pathology most likely hematoma Discussed with ortho and will continue IV decadron for now and steroid taper on discharge and has been placed on the discharge Encouraged oral intake and increased activity as tolerated Consult placed to Dr. Briceno for inpatient rehab at [facility] and pending. Social work following for discharge planning Prognosis is guarded The impression and plan of care has been dictated by Jessie Urbano, Nurse Practitioner as directed. Dr. Gilbert MD I have performed a history and examination and MDM of this patient, discussed th e with the dictator, and agree with the dictator's assessment and plan as written ,documented as a scribe. Based on total visit time, I have performed more than 50% of the visit. Objective - Vital Signs Vital signs: Vital Signs Temp 97.4 F L 06/08/22 04:01 Pulse 62 06/08/22 04:01 Resp 16 06/08/22 04:01 BP 146/66 06/08/22 04:55 Pulse Ox 97 06/08/22 04:01 FiO2 45 06/01/22 08:00 Intake & Output 06/07/22 06/08/22 06/08/22 18:59 06:59 18:59 Intake Total 50 550 240 Output Total 675 Balance 50 -125 240 Weight 72.9 kg Intake: Intake, IV Titration 50 50 Amount ceFAZolin 2 gm In Sodium 50 50 Chloride 0.9% 50 ml @ 100 mls/hr IVPB Q8H [facility] Rx#: [id number] Oral 500 240 Output: Urine 675 Other: Voiding Method Bedside Commode Bedside Commode Urinal Urinal ABP, PAP, CO, CI - Last Documented Arterial Blood Pressure 107/64 - Labs CBC & Chem 7: 06/06/22 07:44 06/06/22 07:44
[2022-06-08] MEDS: clonazePAM 0.5 MG TAB PO SCH (21:38)
[2022-06-08] MEDS: QUEtiapine 25 MG TAB PO SCH (21:40)
[2022-06-09] MEDS: ACETAMINOPHEN TAB 325 MG TAB PO SCH ×4 (06:07→23:39)
[2022-06-09] MEDS: DEXAMETHASONE SOD PHOSPHATE 4 MG/ML 1 ML VIAL IVP SCH ×2 (07:57→21:01)
[2022-06-09] MEDS: PANTOPRAZOLE 40 MG/10 ML VIAL IVP SCH (07:57)
[2022-06-09] MEDS: lisinopriL 20 MG TAB PO SCH (07:58)
[2022-06-09] MEDS: CHOLECALCIFEROL 25 MCG (1000 IU) TABLET PO SCH (07:58)
[2022-06-09] MEDS: FAMOTIDINE 20 MG TAB PO SCH ×2 (07:58→21:00)
[2022-06-09] MEDS: hydrALAZINE HCL 50 MG TAB PO SCH ×3 (07:58→21:00)
[2022-06-09] MEDS: MULTIVITAMINS, THERA 1 EACH TAB PO SCH (07:58)
[2022-06-09] MEDS: POTASSIUM CHLORIDE ER 10 MEQ TAB.ER.PRT PO SCH (07:58)
[2022-06-09] MEDS: carvediloL 6.25 MG TAB PO SCH ×2 (07:58→17:32)
[2022-06-09] MEDS: MESALAMINE 1.2 GM PO SCH (08:00)
[2022-06-09] MEDS: SODIUM CHLORIDE 0.9% 1,000 ML IV SCH (08:07)
[2022-06-09] MEDS ORDERED: polyethylene glycoL 3350 17 GM POWD.PACK PO SCH (10:32)
--- NOTE | 2022-06-09 10:38 | P.PN ---
Subjective Progress Note Date: 06/09/22 Principal diagnosis: Status post C4-T4 decompression with posterior lateral stabilization Patient seen and examined at bedside. Upon entering room, patient is sleeping. Spoke with Delores MCGEE, and she states patient is doing very well. He has agreed to go to [facility] if approved with Dr. Briceno. Patient has successfully performed stairs, he just has concern from getting up from a seated position, otherwise he is doing well with PT. Surgical dressing CDI. Hard cervical collar present. Patient does not present with or has c/o any fever/chills, nausea/vomiting, or chest pain. Objective - Vital Signs Vital signs: Vital Signs Temp 97.5 F L 06/09/22 04:22 Pulse 67 06/09/22 04:22 Resp 18 06/09/22 04:22 BP 155/75 06/09/22 04:22 Pulse Ox 97 06/09/22 04:22 FiO2 45 06/01/22 08:00 Intake & Output 06/08/22 06/09/22 06/09/22 18:59 06:59 18:59 Intake Total 240 600 Output Total 300 Balance 240 300 Intake: Oral 240 600 Output: Urine 300 Other: Voiding Method Bedside Commode Urinal # Voids 4 3 1 ABP, PAP, CO, CI - Last Documented Arterial Blood Pressure 107/64 - Exam Physical Examination General: The patient is awake and alert, in no acute distress Skin: Skin is warm and dry with no obvious rashes or lesions. Hairy patches absent, no dorsal skin dimples, no cafe au lait spots. Surgical incision to posterior cervical and thoracic region. Eye: Pupils are equal, round and reactive to light, extra-ocular movements are intact; there is normal conjunctiva bilaterally. Neck: The neck is supple, there is slight tenderness and limited ROM due to surgical procedure. Cardiovascular: There is a regular rate and rhythm. No murmur, rub or gallop is appreciated. Respiratory: Lungs are clear to auscultation, respirations are non-labored, breath sounds are equal. Gastrointestinal: Soft, non-distended, non-tender abdomen . Back: There is no tenderness to palpation in the midline, paralumbar, parathoracic or buttocks region. There is no obvious deformity . Musculoskeletal: ROM limited secondary to pain and stiffness from surgical procedure. Muscle strength in all major muscle groups 4-/5 in bilateral upper extremities, and 4+/5 in bilateral lower extremities. Neurological: CN 2-12 intact. There are no obvious motor or sensory deficits. Movement and coordination equal and intact. Sensory exam to light touch intact C5-T1 and intact from L2-S1. Reflexes 2/4 in bilateral upper and lower extremities. Negative Hoffmans, babinski, and clonus signs. Psychiatric: Cooperative, appropriate mood & affect, normal judgment. - Labs CBC & Chem 7: 06/06/22 07:44 06/06/22 07:44 Assessment and Plan Assessment: Post-op day 9: status post C4-T4 decompression with posterior lateral stabilization Other medical comorbidities Plan: -Appreciate hematology oncology consultant and team management. -Activity: Ambulate QID, OOB all meals, up and about, limit lifting bending twisting to less than 5 lbs. No pushing, pulling, or overhead activity. Use walker or cane if needed for stability. -Daily PT/OT, increase ambulation strength and balance. -Hard cervical collar at all times, may remove to shower. -Pain control: Adequate at this time -Meds: reviewed, continuing with titrating steroids. -GI ppx: senna, Miralax -Hygiene: Shower today. Maintain dressing clean and dry. -Encourage IS 10x/hr -Other medical specialty recommendations -We'll continue to follow during inpatient stay, patient is cleared for discharge from orthopedic standpoint. *I reviewed and discussed this case with my attending Dr. Abrams, whom has reviewed this chart and films and is in agreement with assessment and plan of care as outlined above. I have personally seen and examined the patient, performed the documentation and the assessment and plan as written. Number of minutes spent on the visit: 20m.
[2022-06-09] MEDS: polyethylene glycoL 3350 17 GM POWD.PACK PO PRN (15:26)
[2022-06-09] MEDS: QUEtiapine 25 MG TAB PO SCH (21:00)
[2022-06-09] MEDS: clonazePAM 0.5 MG TAB PO SCH (21:00)
[2022-06-10] MEDS: ACETAMINOPHEN TAB 325 MG TAB PO SCH ×4 (06:05→23:12)
--- NOTE | 2022-06-10 06:05 | P.CONS ---
History of Present Illness - Chief Complaint Gait disturbance - History of Present Illness I had the opportunity to see patient for inpatient rehab consultation regard to gait disturbance. Patient admitted to [facility] May 31 history of neck and back pain, today Dr. López. Symmetric neurology, Dr. Amilcar Arredondo who notes right ptosis, right arm weakness that progressed to right and minimal left leg weakness. Seen by Dr. bArams. MRI done at cervical and thoracic spine demonstrated bulge at C5, 6 and epidural mass in the lower cervical and upper thoracic spine. Patient did undergo C5 to T4 decompression and fusion on June 01. Seen by Dr. Harley for ICU care. Note brain MRI was done demonstrated periventricular white matter change. Cervical spine CT did demonstrate the fusion C5-T4. Lumbar CT demonstrates DDD L3, 4 and bulges L3, 4 with stenosis central L3, 4, bilateral L5 and encroachment central L2 in by lateral L3, 4. History of therapies but therapy notes are from last week. PT reports minimal assistance for bed mobility and supervision for transfer and gait height 23 for a roller walker. To OT reports. First reports supervision for feeding and grooming, minimal assistance for upper dressing and moderate sits for lower dressing, bathing, toileting and transfers. Second evaluation discusses supervision for feeding, minimal assistance for grooming and upper casa ssing, maximal assistance for lower dressing, moderate assistance for bathing and minimal assistance for toileting. Supervision for transfer. Speech therapy was prescribed but apparently evaluated in discharge. Midnight nurse reports the patient has been ambulatory and hallway over weekend. Patient feels his only difficulties getting in and out of bed. Previous functional history as elicited from patient: 76-year-old right-handed white male who is lives and 2 floor with . generally does the cooking and laundry and patient does the driving. Patient is independent with standing shower, gait without device. PCP Dr. Ramirez. Denies tobacco or alcohol. Review of Systems Review of systems: ENT: Rigid collar. Eyes: Denies discharge or photophobia. Cardiac: Denies chest pain or palpitation. Pulmonary: Denies cough or shortness of breath. Gastrointestinal: Denies nausea, emesis, constipation, diarrhea. Genitourinary: Denies discharge or frequency. Musculoskeletal: Denies muscle or bone aches. Neurologic: Denies motor or sensory change. Endocrine: Denies shakes or sweats. Oncology: Denies cancers. Dermatologic: Denies rash, itching, pruritus. ALLERGY/immunology: Denies sneezes, rashes. Past Medical History Past Medical History: GERD/Reflux, Hypertension Additional Past Medical History / Comment(s): diarrhea, sometimes bloody mucus, abd. 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 quality control assessor, REM sleeping disorder History of Any Multi-Drug Resistant Organisms: None Reported Past Surgical History: Back Surgery, Hernia Repair, Prostate Surgery Additional Past Surgical History / Comment(s): TURP in 2014 Past Anesthesia/Blood Transfusion Reactions: Previous Problems w/ Anesthesia, Postoperative Nausea & Vomiting (PONV) Additional Past Anesthesia/Blood Transfusion Reaction / Comm: slow to wake up w/TURP Past Psychological History: No Psychological Hx Reported Smoking Status: Never smoker Past Alcohol Use History: Rare Past Drug Use History: None Reported - Past Family History Father Family Medical History: Cancer Sister(s) Family Medical History: Cancer Medications and Allergies Home Medications Medication Instructions Recorded Confirmed Type clonazePAM [KlonoPIN] 0.5 mg PO HS 07/28/15 05/31/22 History lisinopriL [Prinivil] 20 mg PO DAILY 07/28/15 05/31/22 History Cholecalciferol (Vitamin D3) 75 mcg PO DAILY 05/31/22 05/31/22 History [Vitamin D3 (3000 Iu)] Famotidine [Pepcid] 20 mg PO AC-BID 05/31/22 05/31/22 History Mesalamine [Lialda] 2.4 gm PO DAILY 05/31/22 05/31/22 History Multivitamins, Thera [Multivitamin 1 tab PO DAILY 05/31/22 05/31/22 History (formulary)] Potassium Chloride 10 meq PO DAILY 05/31/22 05/31/22 History Saw [place] 500 mg PO DAILY 05/31/22 05/31/22 History Vitamin B Complex 1 cap PO DAILY 05/31/22 05/31/22 History methylPREDNISolone Dose Pack 4 mg PO DIRECTED #21 tab 06/08/22 Rx [Medrol Dose Pack] Allergies Allergy/AdvReac Type Severity Reaction Status Date / Time amlodipine besylate AdvReac extreme Verified 05/31/22 06:53 [From [facility]] anxiety amoxicillin trihydrate AdvReac Nausea & Verified 05/31/22 06:53 [From Augmentin] Vomiting & Diarrhea potassium clavulanate AdvReac Nausea & Verified 05/31/22 06:53 [From Augmentin] Vomiting & Diarrhea Physical Exam Vitals: Vital Signs Temp Pulse Resp BP BP Pulse Ox 06/10/22 04:06 97.9 F 67 18 155/75 97 06/09/22 20:10 16 06/09/22 19:36 97.4 F L 69 16 156/65 98 06/09/22 17:30 67 173/80 06/09/22 15:26 98.5 F 72 16 123/65 99 Intake and Output 06/09/22 06/09/22 06/10/22 14:59 22:59 06:59 Intake Total 240 1100 Output Total 300 Balance 240 800 Intake: Oral 240 1100 Output: Urine 300 Other: Voiding Method Bedside Commode Urinal # Voids 1 3 Skin: Atrophic, intact. General: Thin build and comfortable appearance. Head: Normocephalic, atraumatic. Eyes: Symmetric. Pupils equal round. Ears: Symmetric. Hearing within normal limits. Mouth: Clear. Neck: Rigid collar. Cardiac: Regular rate and rhythm. Lungs: Clear anteriorly and posteriorly. Abdomen: Soft active nontender. Extremities: Normal tone. Neurological: Mental status: Alert, cooperative, pleasant. Cranial nerves: Symmetric facial tone and trapezius. Motor: Normal strength and isolation all 4 limbs. Sensation: Intact throughout. DTRs: Symmetric and equal throughout. Mobility: Patient admits to difficulty getting in and out of bed only. Results CBC & Chem 7: 06/06/22 07:44 06/06/22 07:44 Assessment and Plan (1) Back pain Current Visit: Yes Status: Acute Code(s): M54.9 - DORSALGIA, UNSPECIFIED SNOMED Code(s): 563608987 (2) Epidural mass Current Visit: Yes Status: Acute Code(s): G96.198 - OTHER DISORDERS OF MENINGES, NOT ELSEWHERE CLASSIFIED SNOMED Code(s): 703576207 (3) Weakness Current Visit: Yes Status: Acute Code(s): R53.1 - WEAKNESS SNOMED Code(s): 10737697 Plan: Comments and plan: Patient is status post cervical thoracic spinal stenosis, status post decompression and fusion. Patient with mobility concerns last week in effect apparently concerned about this. At this time patient feels his only concerns getting in and out of bed. Any event, most recent therapy notes are from last week and we will request the to be updated. Pending safety concerns would consider inpatient rehab but patient's report is consistent with nurses report and thus I believe patient most likely ready to go home with support services, at this time. Will however weight therapy notes from today.
--- NOTE | 2022-06-10 06:49 | P.PN ---
Subjective Progress Note Date: 06/09/22 Chief Complaint: Right arm the leg weakness This is a 76-year-old patient who follows with Dr. Ramirez. Chronic stable medical conditions include GERD, hypertension, REM sleep disorder This morning around 5:30 AM patient woke up with pain in the medial part of the right scalpula posteriorly. Subsequent he started noticing pain in the right arm in the joints. Right arm became weak. Pain progressed to become rather significant. No fever no chills. Pain then progressed to go to the neck. was concerned about a cardiac cause brought the patient to the ER. In the pa [place]king lot when patient is walking to the hospital noted that his right leg was weak. Had to be supported. In the ER patient left leg also became weak. Became incontinent. Mata catheter was placed. Consultation to neurology, orthopedic was done. 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 Patient denies any fever and chills. 06/01/2022: Yesterday evening cervical thoracic spine MRI showed a mass. Dr. Abrams to the patient to the OR. Formal report is pending. describes a hematoma being removed. Currently the patient ICU. Hard collar In place. Cervical drain. Lethargic. and son at the bedside. 06/02/2022: ICU. Patient has a Hemovac remains in place. Moving his right arm and right leg better. Mata catheter in place. Did eat some yogurt. Pain better. Pathology pending. Discussed with patient and at the bedside. Remains on Decadron. IV Ancef. 06/03/2022: ICU. Hemovac in place. Pain in the neck. Hard collar. Eating somewhat better today. Moving right arm and right leg better. Has been out of bed. Remains on cleviprex 5 blood pressure. Pathology still pending from the surgery. Spoke to the patient and the . 06/04/2022 Patient is seen in follow-up this morning continues to be in the ICU with multiple medical consultations following. Patient continues with Hemovac in place with orthopedics following closely. Patient is continued on Cleviprex and weaning as tolerated and blood pressure remains elevated. Patient was also continued on IV Decadron along with pain management per orthopedic services and IV cefazolin. Recommend physical therapy daily as patient continues with weakness. Per orthopedic recommendations patient is to continue with hard collar. Patient is afebrile with no reports of chest pain or shortness of breath. Patient is tolerating diet and encouraged oral intake. Awaiting pathology at this time. 06/05/2022 Patient is seen this morning continues to be in the ICU as patient is continued on cleviprex for blood pressure control. Patient is taking lisinopril and will add hydralazine PO for better blood pressure control. Patient is a down grade out of the ICU if off cleviprex. Weaning and currently held. Patient is up and working with physical therapy and reports to his sensations and movements of the extremities are improving although continues with weakness. Recommend PT daily. Encouraged oral intake. Currently awaiting pathology with ortho following as well. 06/06/2022 Patient is seen today with family at the bedside. Patient is smiling and sitting up in the chair. Patient reports he continues with weakness but feels better. Patient continues in the ICU for now although awaiting a bed on med surg. Continue hard collar. Patient awaiting pathology from the evacuation of the hematoma with ortho following. Patient is eating better alhtough needs assistance due to the hard collar and weakness. Patient is afebrile and denies chest pain or shortness of breath. Recommend PT daily. Blood pressure better controlled and will continue current regimen. 06/07/2022 Patient is seen out of the ICU today and has been moved to the medical surgical unit being closely monitored with orthopedics following. Neurology following as well and cleared for discharge with outpatient neurosurgery consult. Patient is working with PT/OT although continues with significant weakness. OT was able to work again with the patient as he has multiple stairs in the home to get up and into the house and also within the house and family is concerned of unsafe discharge planning today. Will consult Dr. Briceno for possible inpatient rehab. Patient is afebrile and denies chest pain or shortness of breath. Patient denies nausea or vomiting. Patient reports trouble sleeping at night. 06/08/2022 Patient is seen today and spoke with PT/OT and is scheduled to have daily physical therapy and consult was placed to Dr. Briceno for possible inpatient rehab at [facility]. Ortho and neuro have cleared the patient and will need outpatient follow up. Patient is agreeable to inpatient rehab prior to returning home to build strength and mobility. Patient with prolonged hospitalization becoming more weak and would greatly benefit from aggressive therapy to safely return home. Continued on IV steroids per ortho and will provide steroid taper on discharge. Encouraged oral intake and needs assistance with meals due to the hard collar. 06/09/2022 Patient is seen today with no acute overnight issues noted. Patient to see DR. Briceno from [facility] inpatient rehab for evaluation for possible inpatient PT/OT. Patient has been cleared by consultations and awaiting Kaity consult. Patient was supposed to be working with physical therapy daily for continued weakness and fearful of returning home with all of his stairs. Patient has been getting up and working with PT/OT and nursing staff. Difficulty getting up and continues to have concerns with the collar. Hard collar to continue per ortho. Afebrile a nd denies chest pain or shortness of breath. Review of systems: Constitutional: No reports of fatigue, fever, or chills Cardiovascular: No reports of chest pain or palpitations Respiratory: No reports of shortness of breath or cough GI: No reports of nausea, vomiting, or diarrhea : No reports of dysuria or retention Neurovascular: reports of generalized weakness, reports neck discomfort from the collar All medications have been reviewed Physical examination: GENERAL: sitting up in the chair, awake, answering questions EYES: Pupils equal. Conjunctiva normal. HEENT: External appearance of nose and ears normal, oral cavity grossly normal. NECK: Hard collar in place HEART: First and second heart sounds are normal; no edema. LUNGS: Respiratory rate normal; clear to auscultation. ABDOMEN: Soft, nontender, no masses palpable. PSYCH: AO 3, mood and affect normal, slightly anxious MUSCULOSKELETAL:No Clubbing/cyanosis;muscles-weak NEUROLOGICAL: Cranial nerves grossly intact; no facial asymmetry, strength of agriculture technician 4/5 bilaterally improved Assessment: -Mass in the area of C5-C6-T2-T3 about 8.5 mm in thickness on MRI. Taken to the or on 05/31/[address] Abrams. Report most likely hematoma AV malformation rupture ruled out per ortho -Essential hypertension, uncontrolled -Acute metabolic encephalopathy. Multifactorial: Corrected -Mild thrombocytopenia, improving -Hypokalemia: Corrected -gait dysfunction -GERD -Chronic REM disorder insomnia -Full code Plan: Patient is to continue with hard collar per orthopedic recommendations and recommend physical therapy daily. Recommend continue current medications and monitoring of blood pressure. Continue current bp meds Recommend telemetry monitoring Pathology most likely hematoma, av malformation rupture unlikely per ortho Discussed with ortho and will continue IV decadron for now and steroid taper on discharge and has been placed on the discharge Encouraged oral intake and increased activity as tolerated Consult placed to Dr. Briceno for inpatient rehab at [facility] and pending. Social work following for discharge planning Prognosis is guarded Possible discharge in 24-48 hours The impression and plan of care has been dictated by Jessie Urbano, Nurse Practitioner as directed. Dr. Gilbert MD I have performed a history and examination and MDM of this patient, discussed the same with the dictator, and agree with the dictator's assessment and plan as written ,documented as a scribe. Based on total visit time, I have performed more than 50% of the visit. Objective - Vital Signs Vital signs: Vital Signs Temp 97.9 F 06/10/22 04:06 Pulse 67 06/10/22 04:06 Resp 18 06/10/22 04:06 BP 155/75 06/10/22 04:06 Pulse Ox 97 06/10/22 04:06 FiO2 45 06/01/22 08:00 Intake & Output 06/09/22 06/09/22 06/10/22 06:59 18:59 06:59 Intake Total 600 1340 600 Output Total 300 300 Balance 300 1340 300 Intake: Oral 600 1340 600 Output: Urine 300 300 Other: Voiding Method Bedside Commode Bedside Commode Urinal Urinal # Voids 3 3 2 ABP, PAP, CO, CI - Last Documented Arterial Blood Pressure 107/64 - Labs CBC & Chem 7: 06/06/22 07:44 06/06/22 07:44
[2022-06-10] MEDS: carvediloL 6.25 MG TAB PO SCH ×2 (08:15→18:07)
[2022-06-10] MEDS: CHOLECALCIFEROL 25 MCG (1000 IU) TABLET PO SCH (08:16)
[2022-06-10] MEDS: PANTOPRAZOLE 40 MG/10 ML VIAL IVP SCH (08:16)
[2022-06-10] MEDS: DEXAMETHASONE SOD PHOSPHATE 4 MG/ML 1 ML VIAL IVP SCH ×2 (08:16→21:23)
[2022-06-10] MEDS: hydrALAZINE HCL 50 MG TAB PO SCH ×3 (08:16→21:23)
[2022-06-10] MEDS: FAMOTIDINE 20 MG TAB PO SCH ×2 (08:16→21:23)
[2022-06-10] MEDS: lisinopriL 20 MG TAB PO SCH (08:16)
[2022-06-10] MEDS: MULTIVITAMINS, THERA 1 EACH TAB PO SCH (08:16)
[2022-06-10] MEDS: POTASSIUM CHLORIDE ER 10 MEQ TAB.ER.PRT PO SCH (08:17)
[2022-06-10] MEDS: MESALAMINE 1.2 GM PO SCH (08:17)
--- NOTE | 2022-06-10 08:48 | P.PN ---
Subjective Progress Note Date: 06/10/22 Principal diagnosis: Status post C4-T4 decompression with posterior lateral stabilization Patient seen and examined at bedside. He is currently resting in bed. Patient is looking forward to working with PT today. Patient states he has been progressing well with activity each day. He was accepted to IPR with Dr. Briceno. Patient is wanting to go home with homecare. Surgical dressing CDI. Hard cervical collar present. Patient denies any fever/chills, nausea/vomiting, or chest pain. Objective - Vital Signs Vital signs: Vital Signs Temp 97.9 F 06/10/22 04:06 Pulse 68 06/10/22 08:13 Resp 18 06/10/22 04:06 BP 161/79 06/10/22 08:13 Pulse Ox 98 06/10/22 08:13 FiO2 45 06/01/22 08:00 Intake & Output 06/09/22 06/10/22 06/10/22 18:59 06:59 18:59 Intake Total 1340 600 Output Total 300 Balance 1340 300 Intake: Oral 1340 600 Output: Urine 300 Other: Voiding Method Bedside Commode Urinal # Voids 3 2 ABP, PAP, CO, CI - Last Documented Arterial Blood Pressure 107/64 - Exam Physical Examination General: The patient is awake and alert, in no acute distress Skin: Skin is warm and dry with no obvious rashes or lesions. Hairy patches absent, no dorsal skin dimples, no cafe au lait spots. Surgical incision to posterior cervical and thoracic region. Eye: Pupils are equal, round and reactive to light, extra-ocular movements are intact; there is normal conjunctiva bilaterally. Neck: The neck is supple, there is slight tenderness and limited ROM due to surgical procedure. Cardiovascular: There is a regular rate and rhythm. No murmur, rub or gallop is appreciated. Respiratory: Lungs are clear to auscultation, respirations are non-labored, breath sounds are equal. Gastrointestinal: Soft, non-distended, non-tender abdomen . Back: There is no tenderness to palpation in the midline, paralumbar, parathoracic or buttocks region. There is no obvious deformity . Musculoskeletal: ROM limited secondary to pain and stiffness from surgical procedure. Muscle strength in all major muscle groups 4-/5 in bilateral upper extremities, and 4+/5 in bilateral lower extremities. Neurological: CN 2-12 intact. There are no obvious motor or sensory deficits. Movement and coordination equal and intact. Sensory exam to light touch intact C5-T1 and intact from L2-S1. Reflexes 2/4 in bilateral upper and lower extremities. Negative Hoffmans, babinski, and clonus signs. Psychiatric: Cooperative, appropriate mood & affect, normal judgment. - Labs CBC & Chem 7: 06/06/22 07:44 06/06/22 07:44 Assessment and Plan Assessment: Post-op day 10: status post C4-T4 decompression with posterior lateral stabilization Other medical comorbidities Plan: -Appreciate strategy consultant and team management. -Activity: Ambulate QID, OOB all meals, up and about, limit lifting bending twisting to less than 5 lbs. No pushing, pulling, or overhead activity. Use walker or cane if needed for stability. -Daily PT/OT, increase ambulation strength and balance. -Hard cervical collar at all times, may remove to shower. -Pain control: Adequate at this time -Meds: reviewed, continuing with titrating steroids. -GI ppx: senna, Miralax -Hygiene: Shower today. Maintain dressing clean and dry. -Encourage IS 10x/hr -Other medical specialty recommendations -We'll continue to follow during inpatient stay, patient is cleared for discharge from orthopedic standpoint. *I reviewed and discussed this case with my attending Dr. Abrams, whom has reviewed this chart and films and is in agreement with assessment and plan of care as outlined above. I have personally seen and examined the patient, performed the documentation and the assessment and plan as written. Number of minutes spent on the visit: 20m.
[2022-06-10] MEDS: polyethylene glycoL 3350 17 GM POWD.PACK PO PRN (13:12)
[2022-06-10] MEDS ORDERED: LORazepam 2 MG/ML INJ IV PRN (18:12)
[2022-06-10] MEDS: SODIUM CHLORIDE 0.9% 1,000 ML IV SCH (18:49)
[2022-06-10 19:20] VITALS: RESP 16; TEMP 97.6
[2022-06-10] MEDS: QUEtiapine 25 MG TAB PO SCH (21:23)
[2022-06-10] MEDS: LISINOPRIL-HCTZ 20-12.5 MG 1 EACH TAB PO SCH (21:23)
[2022-06-10] MEDS: clonazePAM 0.5 MG TAB PO SCH (21:23)
--- NOTE | 2022-06-10 23:09 | P.PN ---
Progress Note - Text Progress Note Date: 06/10/22 Chief Complaint: Right arm the leg weakness This is a 76-year-old patient who follows with Dr. Ramirez. Chronic stable medical conditions include GERD, hypertension, REM sleep disorder This morning around 5:30 AM patient woke up with pain in the medial part of the right scalpula posteriorly. Subsequent he started noticing pain in the right arm in the joints. Right arm became weak. Pain progressed to become rather significant. No fever no chills. Pain then progressed to go to the neck. was concerned about a cardiac cause brought the patient to the ER. In the parking lot when patient is walking to the hospital noted that his right leg was weak. Had to be supported. In the ER patient left leg also became weak. Became incontinent. Mata catheter was placed. Consultation to neurology, orthopedic was done. Also to vp scientific affairs to move the patient to the ICU. Patient denies any fever and chills. 06/01/2022: Yesterday evening cervical thoracic spine MRI showed a mass. Dr. Abrams to the patient to the OR. Formal report is pending. describes a hematoma being removed. Currently the patient ICU. Hard collar In place. Cervical drain. Lethargic. and son at the bedside. 06/02/2022: ICU. Patient has a Hemovac remains in place. Moving his right arm and right leg better. Mata catheter in place. Did eat some yogurt. Pain better. Pathology pending. Discussed with patient and at the bedside. Remains on Decadron. IV Ancef. 06/03/2022: ICU. Hemovac in place. Pain in the neck. Hard collar. Eating somewhat better today. Moving right arm and right leg better. Has been out of bed. Remains on cleviprex 5 blood pressure. Pathology still pending from the surgery. Spoke to the patient and the . 06/04/2022 Patient is seen in follow-up this morning continues to be in the ICU with multiple medical consultations following. Patient continues with Hemovac in place with orthopedics following closely. Patient is continued on Cleviprex and weaning as tolerated and blood pressure remains elevated. Patient was also continued on IV Decadron along with pain management per orthopedic services and IV cefazolin. Recommend physical therapy daily as patient continues with weakness. Per orthopedic recommendations patient is to continue with hard collar. Patient is afebrile with no reports of chest pain or shortness of breath. Patient is tolerating diet and encouraged oral intake. Awaiting pathology at this time. 06/05/2022 Patient is seen this morning continues to be in the ICU as patient is continued on cleviprex for blood pressure control. Patient is taking lisinopril and will add hydralazine PO for better blood pressure control. Patient is a down grade out of the ICU if off cleviprex. Weaning and currently held. Patient is up and working with physical therapy and reports to his sensations and movements of the extremities are improving although continues with weakness. Recommend PT daily. Encouraged oral intake. Currently awaiting pathology with ortho following as well. 06/06/2022 Patient is seen today with family at the bedside. Patient is smiling and sitting up in the chair. Patient reports he continues with weakness but feels better. Patient continues in the ICU for now although awaiting a bed on med surg. Continue hard collar. Patient awaiting pathology from the evacuation of the hematoma with ortho following. Patient is eating better alhtough needs assistance due to the hard collar and weakness. Patient is afebrile and denies chest pain or shortness of breath. Recommend PT daily. Blood pressure better controlled and will continue current regimen. 06/07/2022 Patient is seen out of the ICU today and has been moved to the medical surgical unit being closely monitored with orthopedics following. Neurology following as well and cleared for discharge with outpatient neurosurgery consult. Patient is working with PT/OT although continues with significant weakness. OT was able to work again with the patient as he has multiple stairs in the home to get up and into the house and also within the house and family is concerned of unsafe discharge planning today. Will consult Dr. Briceno for possible inpatient rehab. Patient is afebrile and denies chest pain or shortness of breath. Patient denies nausea or vomiting. Patient reports trouble sleeping at night. 06/08/2022 Patient is seen today and spoke with PT/OT and is scheduled to have daily physical therapy and consult was placed to Dr. Briceno for possible inpatient rehab at [facility]. Ortho and neuro have cleared the patient and will need outpatient follow up. Patient is agreeable to inpatient rehab prior to returning home to build strength and mobility. Patient with prolonged hospitalization becoming more weak and would greatly benefit from aggressive therapy to safely return home. Continued on IV steroids per ortho and will provide steroid taper on discharge. Encouraged oral intake and needs assistance with meals due to the hard collar. 06/09/2022 Patient is seen today with no acute overnight issues noted. Patient to see DR. Briceno from [facility] inpatient rehab for evaluation for possible inpatient PT/OT. Patient has been cleared by consultations and awaiting Kaity consult. Patient was supposed to be working with physical therapy daily for continued weakness and fearful of returning home with all of his stairs. Patient has been getting up and working with PT/OT and nursing staff. Difficulty getting up and continues to have concerns with the collar. Hard collar to continue per ortho. Afebrile and denies chest pain or shortness of breath. 06/10/2022: [facility] Patient sitting up in a chair. While eating as taken off his cervical hard collar. and daughter the bedside. Feeling better. Had a small BM yesterday. Oral intake fair. Discharge planning discussed with the patient and family. Team to go home with support. manager nursing to follow up for the same. Their preferences [facility]. We'll make arrangements. Plan for tomorrow to be discharged. Blood pressure running on the higher side. Lisinopril hydrochlorothiazide. Increase. Active Medications Acetaminophen (Acetaminophen Tab 325 Mg Tab) 650 mg PO Q6HR BRYNN Last Admin: 06/10/22 18:07 Dose: 650 mg Hydrocodone Bitart/Acetaminophen (Hydrocodone/Apap 10-325mg 1 Each Tab) 1 each PO Q6H PRN PRN Reason: Pain Scale 7 - 10 Last Admin: 06/04/22 22:09 Dose: 1 each Hydrocodone Bitart/Acetaminophen (Hydrocodone/Apap 7.5-325mg 1 Each Tab) 1 each PO Q6HR PRN PRN Reason: Pain Al Hydroxide/Mg Hydroxide (Mag Hydrox/Al Hydrox/Simeth 30 Ml Cup) 30 ml PO Q4HR PRN PRN Reason: Indigestion Artificial Tears (Artificial Tears-Hypromellose Drops 15 Ml Btl) 1 drops BOTH EYES QID PRN PRN Reason: Dry Eye(s) Bisacodyl (Bisacodyl 10 Mg Supp) 10 mg RECTAL DAILY PRN PRN Reason: Constipation Carvedilol (Carvedilol 6.25 Mg Tab) 6.25 mg PO BID-W/MEALS [facility] Last Admin: 06/10/22 18:07 Dose: 6.25 mg Cholecalciferol (Cholecalciferol 25 Mcg (1000 Iu) Tablet) 75 mcg PO DAILY [facility] Last Admin: 06/10/22 08:16 Dose: 75 mcg Clonazepam (Clonazepam 0.5 Mg Tab) 0.5 mg PO HS [facility] Last Admin: 06/10/22 21:23 Dose: 0.5 mg Cyclobenzaprine HCl (Cyclobenzaprine 5 Mg Tab) 5 mg PO TID PRN PRN Reason: Muscle Spasm Last Admin: 06/03/22 14:45 Dose: 5 mg Dexamethasone Sodium Phosphate (Dexamethasone Sod Phosphate 4 Mg/Ml 1 Ml Vial) 2 mg IVP BID [facility] Last Admin: 06/10/22 21:23 Dose: 2 mg Famotidine (Famotidine 20 Mg Tab) 20 mg PO BID [facility] Last Admin: 06/10/22 21:23 Dose: 20 mg Lisinopril/HCTZ (Lisinopril-Hctz 20-12.5 Mg 1 Each Tab) 1 each PO BID [facility] Last Admin: 06/10/22 21:23 Dose: 1 each Hydralazine HCl (Hydralazine Hcl 20 Mg/Ml 1 Ml Vial) 10 mg IVP Q4HR PRN PRN Reason: Blood Pressure - High Last Admin: 06/08/22 04:09 Dose: 10 mg Hydralazine HCl (Hydralazine Hcl 50 Mg Tab) 100 mg PO TID [facility] Last Admin: 06/10/22 21:23 Dose: 100 mg Hydromorphone HCl (Hydromorphone 0.5 Mg/0.5 Ml Syringe) 0.5 mg IVP Q3HR PRN PRN Reason: Moderate Pain (Scale 4 to 6) Last Admin: 06/04/22 03:35 Dose: 0.5 mg Hydromorphone HCl (Hydromorphone 0.5 Mg/0.5 Ml Syringe) 0.25 mg IVP Q3HR PRN PRN Reason: Severe Pain (Scale 7 to 10) Last Admin: 06/01/22 16:24 Dose: 0.25 mg Sodium Chloride (Saline 0.9%) 1,000 mls @ 20 mls/hr IV .Q24H [facility] Last Admin: 06/10/22 18:49 Dose: Not Given Loperamide HCl (Loperamide 2 Mg Cap) 2 mg PO QID PRN PRN Reason: Diarrhea Lorazepam (Lorazepam 2 Mg/Ml Inj) 1 mg IV Q4HR PRN PRN Reason: Anxiety Magnesium Hydroxide (Magnesium Hydroxide 2,400 Mg/10 Ml Cup) 2,400 mg PO DAILY PRN PRN Reason: Constipation Miscellaneous Information (Potassium Replacement Protocol 1 Each Misc) 1 each MISCELLANE DAILY PRN; Protocol PRN Reason: Per Protocol Miscellaneous Information (Potassium Replacement Protocol 1 Each Misc) 1 each MISCELLANE DAILY PRN; Protocol PRN Reason: Per Protocol Miscellaneous Information (Potassium Replacement Protocol 1 Each Misc) 1 each MISCELLANE DAILY PRN; Protocol PRN Reason: Per Protocol Multivitamins (Multivitamins, Thera 1 Each Tab) 1 each PO DAILY [facility] Last Admin: 06/10/22 08:16 Dose: 1 each Naloxone HCl (Naloxone 0.4 Mg/Ml 1 Ml Vial) 0.2 mg IV Q2M PRN PRN Reason: Opioid Reversal Patients Own Med-- Mesalamine 1.2g Dr Tab 2 each PO DAILY [facility] Last Admin: 06/10/22 08:17 Dose: 2 each Ondansetron HCl (Ondansetron 4 Mg/2 Ml Vial) 4 mg IVP Q8HR PRN PRN Reason: Nausea And Vomiting Polyethylene Glycol (Polyethylene Glycol 3350 17 Gm Powd.Pack) 17 gm PO DAILY PRN PRN Reason: Constipation Last Admin: 06/10/22 13:12 Dose: 17 gm Potassium Chloride (Potassium Chloride Er 10 Meq Tab.Er.Prt) 10 meq PO DAILY [facility] Last Admin: 06/10/22 08:17 Dose: 10 meq Quetiapine Fumarate (Quetiapine 25 Mg Tab) 12.5 mg PO HS [facility] Last Admin: 06/10/22 21:23 Dose: 12.5 mg Senna/Docusate Sodium (Sennosides-Docusate Sodium 1 Each Tab) 2 each PO DAILY PRN PRN Reason: Constipation Sodium Biphosphate/Sodium Phosphate (Na Phos,M-B/Na Phos,Di-Ba 133 Ml Enema) 133 ml RECTAL DAILY PRN PRN Reason: Constipation Temazepam (Temazepam 15 Mg Cap) 15 mg PO HS PRN PRN Reason: Insomnia Past medical history to include: GERD, hypertension,REM sleep disorder 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 . No smoking or alcohol. Physical examination: VITAL SIGNS: 97.5, 65, 18, 1 38 x 56, 98% room air GENERAL: Up in a chair, awake, more comfortable EYES: Pupils equal. Conjunctiva normal. HEENT: External appearance of nose and ears normal, oral cavity grossly normal. NECK: Hard collar in place with a Hemovac in place. HEART: First and second heart sounds are normal; no edema. LUNGS: Respiratory rate normal; clear to auscultation. ABDOMEN: Soft, nontender, liver spleen not palpable, no masses palpable. PSYCH: AO 3, mood and affect normal MUSCULOSKELETAL:No Clubbing/cyanosis;muscles-grossly intact NEUROLOGICAL: Cranial nerves grossly intact; no facial asymmetry, able to lift his right arm and right leg. 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 Significant flattening of the; spinal cord and anterior displacement. up to 8.5 mm in thickness. White count 4.5 hemoglobin 16 platelets 146 potassium 3.4 BUN 18 creatinine 0.83 Troponin I less than 0.012 CT brain: Age-related atrophic and chronic small vessel ischemic changes. Chest x-ray film personally reviewed by me-unremarkable EKG tracing personally reviewed by me-sinus rhythm. Nonspecific T-wave changes. CT angiogram head and neck: Unremarkable Ultrasound duplex out of: Unremarkable CT; thoracolumbar spine showing evidence of DJD. Assessment and plan: -Mass in the area of C5-C6-T2-T3 about 8.5 mm in thickness on MRI. Taken to the or on 05/31/[address] Abrams. hematoma evacuated. . Possibility AV malformation that ruptured. Received IV Ancef and Decadron. -Essential hypertension, uncontrolled Remains On cleviprex. Lopressor. Add lisinopril hydrochlorothiazide 20/12.5 twice a day -Acute metabolic encephalopathy. Multifactorial: Corrected -Mild thrombocytopenia, corrected -Hypokalemia: Corrected Replace potassium -GERD Pepcid -Chronic REM disorder insomnia Yrnonopin -Full code Dominique discussed with the patient and and daughter the bedside. Keen to go home. manager nursing arranging for [facility] and home health. Lisinopril hydrochlorothiazide 20/12.5 twice day. Follow blood pressure better controlled.
[2022-06-11 05:15] VITALS: PULSE 75
[2022-06-11] MEDS: ACETAMINOPHEN TAB 325 MG TAB PO SCH ×2 (06:27→12:27)
[2022-06-11] MEDS: carvediloL 6.25 MG TAB PO SCH (08:17)
[2022-06-11] MEDS: CHOLECALCIFEROL 25 MCG (1000 IU) TABLET PO SCH (08:17)
[2022-06-11] MEDS: FAMOTIDINE 20 MG TAB PO SCH (08:18)
[2022-06-11] MEDS: MESALAMINE 1.2 GM PO SCH (08:18)
[2022-06-11] MEDS: MULTIVITAMINS, THERA 1 EACH TAB PO SCH (08:18)
[2022-06-11] MEDS: DEXAMETHASONE SOD PHOSPHATE 4 MG/ML 1 ML VIAL IVP SCH (08:18)
[2022-06-11] MEDS: POTASSIUM CHLORIDE ER 10 MEQ TAB.ER.PRT PO SCH (08:18)
[2022-06-11] MEDS: LISINOPRIL-HCTZ 20-12.5 MG 1 EACH TAB PO SCH (08:18)
[2022-06-11 10:54] VITALS: BP 150/66
[2022-06-11] MEDS: hydrALAZINE HCL 50 MG TAB PO SCH (10:55)
--- NOTE | 2022-06-11 16:44 | P.DS ---
Providers Date of admission: 05/31/22 08:38 Expected date of discharge: 06/11/22 Attending physician: Nickolas López Consults: 05/31/22 08:37 Consult Physician Stat Consulting Provider: Amilcar Arredondo Consult Reason/Comments: weakness Do you want consulting provider notified?: Already Contacted Consult Physician Stat Consulting Provider: Berny Abrams Consult Reason/Comments: back pain and weakness Do you want consulting provider notified?: Already Contacted 06/07/22 15:24 Consult Physician Urgent Consulting Provider: Joel Briceno Consult Reason/Comments: weakness, recent cervical decompression surgery Do you want consulting provider notified?: Yes Primary care physician: [facility] Course: Chief Complaint: Right arm the leg weakness This is a 76-year-old patient who follows with Dr. Ramirez. Chronic stable medical conditions include GERD, hypertension, REM sleep disorder This morning around 5:30 AM patient woke up with pain in the medial part of the right scalpula posteriorly. Subsequent he started noticing pain in the right arm in the joints. Right arm became weak. Pain progressed to become rather significant. No fever no chills. Pain then progressed to go to the neck. was concerned about a cardiac cause brought the patient to the ER. In the parking lot when patient is walking to the hospital noted that his right leg was weak. Had to be supported. In the ER patient left leg also became weak. Became incontinent. Mata catheter was placed. Consultation to neurology, orthopedic was done. Also to human resources analyst to move the patient to the ICU. Patient denies any fever and chills. 06/01/2022: Yesterday evening cervical thoracic spine MRI showed a mass. Dr. Abrams to the patient to the OR. Formal report is pending. describes a hematoma being removed. Currently the patient ICU. Hard collar In place. Cervical drain. Lethargic. and son at the bedside. 06/02/2022: ICU. Patient has a Hemovac remains in place. Moving his right arm and right leg better. Mata catheter in place. Did eat some yogurt. Pain better. Pathology pending. Discussed with patient and at the bedside. Remains on Decadron. IV Ancef. 06/03/2022: ICU. Hemovac in place. Pain in the neck. Hard collar. Eating somewhat better today. Moving right arm and right leg better. Has been out of bed. Remains on cleviprex 5 blood pressure. Pathology still pending from the surgery. Spoke to the patient and the . 06/04/2022 Patient is seen in follow-up this morning continues to be in the ICU with multiple medical consultations following. Patient continues with Hemovac in place with orthopedics following closely. Patient is continued on Cleviprex and weaning as tolerated and blood pressure remains elevated. Patient was also continued on IV Decadron along with pain management per orthopedic services and IV cefazolin. Recommend physical therapy daily as patient continues with weakness. Per orthopedic recommendations patient is to continue with hard collar. Patient is afebrile with no reports of chest pain or shortness of breath. Patient is tolerating diet and encouraged oral intake. Awaiting pathology at this time. 06/05/2022 Patient is seen this morning continues to be in the ICU as patient is continued on cleviprex for blood pressure control. Patient is taking lisinopril and will add hydralazine PO for better blood pressure control. Patient is a down grade out of the ICU if off cleviprex. Weaning and currently held. Patient is up and working with physical therapy and reports to his sensations and movements of the extremities are improving although continues with weakness. Recommend PT daily. Encouraged oral intake. Currently awaiting pathology with ortho following as well. 06/06/2022 Patient is seen today with family at the bedside. Patient is smiling and sitting up in the chair. Patient reports he continues with weakness but feels better. P atient continues in the ICU for now although awaiting a bed on med surg. Continue hard collar. Patient awaiting pathology from the evacuation of the hematoma with ortho following. Patient is eating better alhtough needs assistance due to the hard collar and weakness. Patient is afebrile and denies chest pain or shortness of breath. Recommend PT daily. Blood pressure better controlled and will continue current regimen. 06/07/2022 Patient is seen out of the ICU today and has been moved to the medical surgical unit being closely monitored with orthopedics following. Neurology following as well and cleared for discharge with outpatient neurosurgery consult. Patient is working with PT/OT although continues with significant weakness. OT was able to work again with the patient as he has multiple stairs in the home to get up and into the house and also within the house and family is concerned of unsafe discharge planning today. Will consult Dr. Briceno for possible inpatient rehab. Patient is afebrile and denies chest pain or shortness of breath. Patient denies nausea or vomiting. Patient reports trouble sleeping at night. 06/08/2022 Patient is seen today and spoke with PT/OT and is scheduled to have daily physical therapy and consult was placed to Dr. Briceno for possible inpatient rehab at [facility]. Ortho and neuro have cleared the patient and will need outpatient follow up. Patient is agreeable to inpatient rehab prior to returning home to build strength and mobility. Patient with prolonged hospitalization becoming more weak and would greatly benefit from aggressive therapy to safely return home. Continued on IV steroids per ortho and will provide steroid taper on discharge. Encouraged oral intake and needs assistance with meals due to the hard collar. 06/09/2022 Patient is seen today with no acute overnight issues noted. Patient to see DR. Briceno from [facility] inpatient rehab for evaluation for possible inpatient PT/OT. Patient has been cleared by consultations and awaiting Kaity consult. Patient was supposed to be working with physical therapy daily for continued weakness and fearful of returning home with all of his stairs. Patient has been getting up and working with PT/OT and nursing staff. Difficulty getting up and continues to have concerns with the collar. Hard collar to continue per ortho. Afebrile and denies chest pain or shortness of breath. 06/10/2022: I resumed care of the patient from [facility] today. Patient sitting up in a chair. While eating as taken off his cervical hard collar. and daughter the bedside. Feeling better. Had a small BM yesterday. Oral intake fair. Discharge planning discussed with the patient and family. Team to go home with support. freight manager to follow up for the same. Their preferences [facility]. We'll make arrangements. Plan for tomorrow to be discharged. Blood pressure running on the higher side. Lisinopril hydrochlorothiazide. Increase. 06/11/2022: Blood pressure better controlled. Discussed with the patient and . Going home with [facility]. We'll follow up with Dr. Abrams outpatient. Doing much better. Questions answered. 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 . No smoking or alcohol. Physical examination: VITAL SIGNS: 37.6, 75, 16, 137/84, 97% room air GENERAL: Planning in bed, comfortable EYES: Pupils equal. Conjunctiva normal. HEENT: External appearance of nose and ears normal, oral cavity grossly normal. NECK: Hard collar in place with a Hemovac in place. HEART: First and second heart sounds are normal; no edema. LUNGS: Respiratory rate normal; clear to auscultation. ABDOMEN: Soft, nontender, liver spleen not palpable, no masses palpable. PSYCH: AO 3, mood and affect normal MUSCULOSKELETAL:No Clubbing/cyanosis;muscles-grossly intact NEUROLOGICAL: Cranial nerves grossly intact; no facial asymmetry, able to lift his right arm and right leg. 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 Significant flattening of the; spinal cord and anterior displacement. up to 8.5 mm in thickness. White count 4.5 hemoglobin 16 platelets 146 potassium 3.4 BUN 18 creatinine 0.83 Troponin I less than 0.012 CT brain: Age-related atrophic and chronic small vessel ischemic changes. Chest x-ray film personally reviewed by me-unremarkable EKG tracing personally reviewed by me-sinus rhythm. Nonspecific T-wave changes. CT angiogram head and neck: Unremarkable Ultrasound duplex out of: Unremarkable CT; thoracolumbar spine showing evidence of DJD. Assessment and plan: -Mass in the area of C5-C6-T2-T3 about 8.5 mm in thickness on MRI. Taken to the or on 05/31/[address] Abrams. hematoma evacuated. . Possibility AV malformation that ruptured. Received IV Ancef and Decadron. Discharged on Medrol Dosepak. -Essential hypertension, uncontrolled Lopressor. lisinopril hydrochlorothiazide 20/12.5 twice a day -Acute metabolic encephalopathy. Multifactorial: Corrected -Mild thrombocytopenia, corrected -Hypokalemia: Corrected Replace potassium -GERD Pepcid -Chronic REM disorder insomnia Klonopin -Full code Disposition: Home Patient Condition at Discharge: Good Plan - Discharge Summary Discharge Rx Participant: Yes New Discharge Prescriptions: New carvediloL [Coreg] 6.25 mg PO BID-W/MEALS #60 tab Cyclobenzaprine [Flexeril] 5 mg PO TID PRN #30 tab PRN Reason: Muscle Spasm Lisinopril-Hctz 20-12.5 mg [Zestoretic 20-12.5] 1 each PO BID #60 tab hydrALAZINE HCL [Apresoline] 100 mg PO TID #90 tablet methylPREDNISolone Dose Pack [Medrol Dose Pack] 4 mg PO DIRECTED #21 tab Continue clonazePAM [KlonoPIN] 0.5 mg PO HS Vitamin B Complex 1 cap PO DAILY Cholecalciferol (Vitamin D3) [Vitamin D3 (3000 Iu)] 75 mcg PO DAILY Multivitamins, Thera [Multivitamin (formulary)] 1 tab PO DAILY Mesalamine [Lialda] 2.4 gm PO DAILY Famotidine [Pepcid] 20 mg PO AC-BID Discontinued lisinopriL [Prinivil] 20 mg PO DAILY Potassium Chloride 10 meq PO DAILY No Action Saw Bagley 500 mg PO DAILY Discharge Medication List clonazePAM [KlonoPIN] 0.5 mg PO HS 07/28/15 [History] Cholecalciferol (Vitamin D3) [Vitamin D3 (3000 Iu)] 75 mcg PO DAILY 05/31/22 [History] Famotidine [Pepcid] 20 mg PO AC-BID 05/31/22 [History] Mesalamine [Lialda] 2.4 gm PO DAILY 05/31/22 [History] Multivitamins, Thera [Multivitamin (formulary)] 1 tab PO DAILY 05/31/22 [History] Saw Bagley 500 mg PO DAILY 05/31/22 [History] Vitamin B Complex 1 cap PO DAILY 05/31/22 [History] methylPREDNISolone Dose Pack [Medrol Dose Pack] 4 mg PO DIRECTED #21 tab 06/08/22 [Rx] Cyclobenzaprine [Flexeril] 5 mg PO TID PRN #30 tab 06/11/22 [Rx] Lisinopril-Hctz 20-12.5 mg [Zestoretic 20-12.5] 1 each PO BID #60 tab 06/11/22 [Rx] carvediloL [Coreg] 6.25 mg PO BID-W/MEALS #60 tab 06/11/22 [Rx] hydrALAZINE HCL [Apresoline] 100 mg PO TID #90 tablet 06/11/22 [Rx] Follow up Appointment(s)/Referral(s): [facility], [NON-STAFF] - 1 Week Drew Ramirez DO [Primary Care Provider] - 1-2 days (patient will have to call and schedule own appt) Berny Abrams DO [Doctor of Osteopathic Medicine] - 06/19/22 11:00 am (patient to come 15 minutes early for paperwork) Activity/Diet/Wound Care/Special Instructions: Spine Discharge and Recovery Instructions Date of Surgery: 05/31/2022 Diagnosis: Weakness, back pain Procedure: C4-T4 decompression with posterior lateral stabilization Medications: See medication list All medication refills should be obtained through your primary care doctor or your clinic spine surgeon. Please discuss prescription refills at your follow up appointment. Do not call the hospital for medication refills. Dressing: Leave your dressing in place for a total of 5 days post operatively. Then you may remove your dressing and leave open to air. Keep the area clean and if not able to keep area clean, then cover with sterile gauze and tape. Showering: You may shower 3 days after your procedure allowing soap and water to run over incision. Do not scrub. Do not soak. Blot dry. Follow up: Please confirm a follow up appointment with your surgeon 3 weeks post operatively. Please make an appointment to follow up with your PCP in 1-2 weeks after surgery for evaluation 3 phase, 3-week plan POST OP WEEKS 1-3 1. Lifting/carrying/pushing/pulling limited to less than 5 pounds. 2. Do not sit for longer than 15 minutes at one time. Get up and walk around. Prolonged sitting is NOT advised. If you lay down, see if you can tolerate laying down on you front (belly side) 3. Walk for periods of 15 minutes = 1 mile but no longer; do it multiple times times each day. 4. Ice your low back after activity. POST OP WEEKS 3-6 1. Lifting limited to less than 20 pounds. 2. Do not sit for longer than 30 minutes at a time. Frequently change positions. Use a sit-to stand workstation or take frequent breaks from sitting if you have returned to work. 3. Walk for 30 minutes each day. If possible, do these three or more times a day POST OP WEEKS 6+ At your 6-week appointment we will give you a physical therapy referral to focus on a core stabilization and strengthening program. You should also work on leg & buttock strengthening, hamstring & quadriceps stretching, and continue a low impact aerobic activity program such as swimming, walking, or riding a stationary bicycle. During the initial 6 weeks after your surgery, you are at the highest risk of re-injuring your spine. You should generally avoid BLTs (bending, lifting and twisting combination motions) and follow the above guidelines to reduce the chance of reinjury. You can anticipate post op appointments in our office at approximately 3 weeks and 6 weeks after your surgery. INCISION CARE: If your incision is not draining you do NOT need to cover it with a dressing. Keep your incision clean, dry and intact. In most cases, we apply skin glue, teena or sutures to the incision at the time of surgery. This will be like a crust or have the appearance of a scab and will fall off in time on its own. The stitches or teena need to be removed at 3 weeks post op appointment. You may begin to shower 3 days after surgery (this allows the glue to murdock well). However, please avoid scrubbing the incision site or peeling off any of the skin glue. This will ensure optimal healing of your incision. Also, during this time avoid soaking the incision area in water - this includes swimming pools, hot tubs or baths. No ointments, lotions or oils on the incision until your surgeon allows. Leave teena, sutures or glue in place. Neurological dysfunction that comes on suddenly can also be a sign of a stroke. Below some common symptoms of a stroke are listed: B - balance difficulty such as sudden onset walking or leaning to one side - NEW E - eye problem such as sudden double vision or trouble seeing on one side - NEW F - Facial weakness or numbness on one side - NEW A - Arm or leg weakness or numbness on one side - NEW S - Slurred speech or difficulty with word finding - NEW T - Time is BRAIN! Call 911 as soon as you recognize these symptoms Diet: Consume a regular diet rich in vegetables and lean protein such as chicken or fish. You should consume in a ratio of approximately 20% fats|40% carbohydrates|40%protein. Vegetables, sweet potatoes, brown rice or quinoa are examples of good carbohydrates. Chips, white bread, cookies and sweets/sugar are examples of bad carbohydrates. Limit your bad carbs, go wild with good carbs. "Life's Simple 7" Guidelines as per [place] [employer] These will help you reclaim your life after surgery and house carpenter helper in your recovery, keeping in mind your restrictions. (1) Get Active. Physical activity can help people lose weight, control high blood pressure and cholesterol, feel emotionally better, and sleep better. (2) Control Cholesterol. Avoid a diet high in saturated fat, trans fat, & cholesterol. Limit whole milk & cream, ice cream, butter, egg yolks, processed meats (like sausage and hot dogs), and fatty meats. Choose healthy foods that are low in saturated fat, trans fat and cholesterol which include: Fruits and vegetables, fiber rich grain products (like whole grain pasta and brown rice), lean meat such as chicken, fish, nuts, seeds, and legumes. (3) Eat Better. Eat small portions. Shop at the grocery with a list and do not stray from it. Tips for a healthy diet include: Limit sodium intake to less than 1500mg daily, avoid prepackaged, processed, and fast foods, choose a diet rich in fruits, vegetables, and whole grain, high fiber foods, and limit saturated & cholesterol in your diet. (4) Manage Blood Pressure. If you have high blood pressure, you should have a cuff at home so that you can check your blood pressure regularly. Be sure you have a good cuff. An arm one is generally better than a wrist one. Bring the cuff to a doctor's appointment to validate that the measurements that your cuff are taking are accurate. Take your blood pressure twice daily when you are sitting down and relaxing. Record the numbers in a log and bring this log with you to your doctors' appointments. (5) Lose Weight if your BMI is above 25. A healthy BMI is between 19-25. To calculate Your BMI, you may use a Standard BMI Calculator on the NIH BMI website: <www.nhlbi.nih.gov/guidelines/obesity/BMI/bmicalc.htm>. Weigh oneself daily. If you are overweight, set a goal to lose weight. A pound a week loss if needed is a good target. (6) Reduce Blood Sugar. Limit foods and liquids with "added sugars." (Added sugars include sucrose, fructose, glucose, maltose, dextrose, high fructose corn syrup, corn syrup, concentrated fruit juice and honey). (7) Stop Smoking. If you smoke, quitting smoking is one of the best things that you can do for your health. Smoking increases your risk of heart attack, stroke, and peripheral vascular disease, which is a build-up of plaque in your arteries. Please discard all the cigarettes and lighters in your house. Have a plan for what you will do when you have the urge to smoke. Direct and second- hand smoke shortens your life as well as the lives of your family, friends and others around you. For your health and the health of those around you, please consider quitting! Proper Bending Body Mechanics: Maintain a wide stance with one foot slightly in front of the other. Keep your back straight. Bend utilizing the strength in your hips and knees. Do not bend at the waist. Maintain the lifted object at your waist-level close to your body. Avoid lifting weight that causes immediately pain or pain anywhere in the body afterwards. Smoking/Nicotine If there was ever one thing that you could do to increase your overall health, decrease your risk of cardiovascular problems by about 39% the second you make the choice, it is to STOP SMOKING. Your body's most instant gratification is the second you stop smoking. We have all heard the studies, read the articles but it is true, smoking is extremely bad for your overall health, and moreover it is detrimental to your bone health. Nicotine, IN ANY FORM, kills bone cells, prevents your body from healing fractures, and significantly prolongs healing after surgery. In spine surgery specifically, it increases your risk of not healing your bones to create a fusion and increases your risk of having a revision surgery due to this up to 60%. I know it is hard. I know it feels impossible. But there are ways. Take control of your life. We are here to help you through it. And when you are ready, ask us and we can direct you to help if you desire. Use the START Plan to Quit Smoking (please visit the Helpguide.org website listed below for more information): S = Set a quit date. Choose a date within the next 2 weeks, so you have enough time to prepare without losing your motivation to quit. If you mainly smoke at work, quit on the weekend, so you have a few days to adjust to the change. T = Tell family, friends, and co-workers that you plan to quit. Let your friends and family in on your plan to quit smoking and tell them you need their support and encouragement to stop. Look for a quit jose luis who wants to stop smoking as well. You can help each other get through the rough times. A = Anticipate and plan for the challenges you'll face while quitting. Most people who begin smoking again do so within the first 3 months. You can h elp yourself make it through by preparing ahead for common challenges, such as nicotine withdrawal and cigarette cravings. R = Remove cigarettes and other tobacco products from your home, car, and work. Throw away all your cigarettes (no emergency pack!), lighters, ashtrays, and matches. Wash your clothes and freshen up anything that smells like smoke. Shampoo your car, clean your drapes and carpet, and steam your furniture. T = Talk to your doctor about getting help to quit. Your doctor can prescribe medication to help with withdrawal and suggest other alternatives. If you can't see a doctor, you can get many products over the counter at your local pharmacy or grocery store, including the nicotine patch, nicotine lozenges, and nicotine gum. Resources for Quitting Smoking: <https://www.[place].gov/documents/[facility]/Quit_Tobacco_Resources_for_patients_313 480_7.pdf> Supplementation: Take recommended dosages of Vitamin D and Calcium to help fortify your bones and help them to heal. See your health maintenance packet for dosages and recommended levels. DVT/VTE prophylaxis: You will be given compression stockings from the hospital. Wear these daily for the first two weeks after surgery. You may take them off at night. You may be prescribed a medication to help thin your blood. Take this as directed. If you are not prescribed this medication, early and frequent ambulation has been shown to be the best prophylaxis to deep vein thrombosis and sequelae related to this event. Discharge Disposition: HOME SELF-CARE
== END 2022-06-11 14:40 | disposition home health service (06) | DRG 28 ==
LOC: EC 06:47 → 3SCARD 08:38 → 2SICU 10:13 → 3SCARD 10:16 → 2SICU 13:49 → 5NMEDONC 06-06 14:40
PROVIDERS: ADMIT Hospitalist; ATTEND Hospitalist
PROC: 00NX0ZZ Release Thoracic Spinal Cord, Open Approach (ICD-10-PCS; 2022-05-31)
PROC: 0RH Upper Joints, Insertion (ICD-10-PCS; 2022-05-31)
PROC: 00CU0ZZ Extirpation of Matter from Spinal Canal, Open Approach (ICD-10-PCS; 2022-05-31)
PROC: 0RG20AJ Fusion of 2 or more Cervical Vertebral Joints with Interbody Fusion Device, Posterior Approach, Anterior Column, Open Approach (ICD-10-PCS; 2022-05-31)
PROC: 0RG40AJ Fusion of Cervicothoracic Vertebral Joint with Interbody Fusion Device, Posterior Approach, Anterior Column, Open Approach (ICD-10-PCS; 2022-05-31)
PROC: 0RG70AJ Fusion of 2 to 7 Thoracic Vertebral Joints with Interbody Fusion Device, Posterior Approach, Anterior Column, Open Approach (ICD-10-PCS; 2022-05-31)
PROC: 00NW0ZZ Release Cervical Spinal Cord, Open Approach (ICD-10-PCS; principal; 2022-05-31 20:32)
DX: I62.1 Nontraumatic extradural hemorrhage (principal); G93.41 Metabolic encephalopathy; G95.19 Other vascular myelopathies; G95.29 Other cord compression; M47.12 Other spondylosis with myelopathy, cervical region; M47.15 Other spondylosis with myelopathy, thoracolumbar region; G95.89 Other specified diseases of spinal cord; D69.6 Thrombocytopenia, unspecified; I10 Essential (primary) hypertension; I08.1 Rheumatic disorders of both mitral and tricuspid valves; M48.04 Spinal stenosis, thoracic region; M48.05 Spinal stenosis, thoracolumbar region; M48.02 Spinal stenosis, cervical region; G47.52 REM sleep behavior disorder; K21.9 Gastro-esophageal reflux disease without esophagitis; R32 Unspecified urinary incontinence; H02.401 Unspecified ptosis of right eyelid; R47.1 Dysarthria and anarthria; R53.1 Weakness; R91.1 Solitary pulmonary nodule; M47.26 Other spondylosis with radiculopathy, lumbar region; G51.0 Bell's palsy; E87.6 Hypokalemia; G89.29 Other chronic pain; R44.1 Visual hallucinations; M47.22 Other spondylosis with radiculopathy, cervical region; R26.9 Unspecified abnormalities of gait and mobility; D18.09 Hemangioma of other sites; M51.36 Other intervertebral disc degeneration, lumbar region; Z28.310 Unvaccinated for COVID-19; Z79.899 Other long term (current) drug therapy; Z88.8 Allergy status to other drugs, medicaments and biological substances; Z88.0 Allergy status to penicillin; Z90.79 Acquired absence of other genital organ(s)
CPT/HCPCS: 36415; 70450; 70496; 70498; 70551; 71045; 71046; 72040; 72125; 72128; 72131; 72156; 72157; 80048; 80053; 80061; 82525; 82607; 82746; 82805; 83036; 83605; 83735; 84132; 84443; 84484; 85025; 85379; 85610; 85730; 86850; 86900; 86901; 87070; 87075; 87102; 87116; 87205; 87206; 87252; 87496; 87498; 87529; 87798; 88305; 93005; 93306; 93979; 94002; 94760; 96374; 96375; 99291

== ENCOUNTER 2022-07-11 10:19 | Emergency (ER) | payer MEDICARE ==
[2022-07-11 10:42] VITALS: TEMP 98.6
--- NOTE | 2022-07-11 10:57 | ED ---
Lower Extremity Injury HPI - General Chief Complaint: Extremity Injury, Lower Stated Complaint: R/O Blood Clot in Leg Time Seen by Provider: 07/11/22 10:45 Source: patient, family, RN notes reviewed, old records reviewed Mode of arrival: ambulatory Limitations: no limitations - History of Present Illness Initial Comments: This is a 76-year-old well-appearing male patient that presents to the emergency room with complaints pain behind his left knee, worse with ambulation. States he just had back surgery on 05/31. Called his primary care doctor's office and the nurse recommended he come to the emergency room concerned for DVT. Patient denies any chest pain or difficulty breathing. No previous history of blood clots. MD Complaint: other (left leg pain) -: days(s) (1) Injury: Leg: Left (pain behind left knee , worse with walking) Severity scale (1-10): 0 (no pain at this time, only with walking) Improves With: rest Worsens With: movement, other (walking) Associated Symptoms: able to partially bear weight - Related Data Home Medications Medication Instructions Recorded Confirmed clonazePAM [KlonoPIN] 0.5 mg PO HS 07/28/15 07/11/22 Cholecalciferol (Vitamin D3) 75 mcg PO DAILY 05/31/22 07/11/22 [Vitamin D3 (3000 Iu)] Famotidine [Pepcid] 20 mg PO AC-BID 05/31/22 07/11/22 Mesalamine [Lialda] 2.4 gm PO DAILY 05/31/22 07/11/22 Multivitamins, Thera [Multivitamin 1 tab PO DAILY 05/31/22 07/11/22 (formulary)] Saw [place] 500 mg PO DAILY 05/31/22 07/11/22 Vitamin B Complex 1 cap PO DAILY 05/31/22 07/11/22 Lisinopril-Hctz 20-12.5 mg 1 tab PO BID 07/11/22 07/11/22 [Zestoretic 20-12.5] Potassium Chloride ER [K-Dur 10] 10 meq PO DAILY 07/11/22 07/11/22 Previous Rx's Medication Instructions Recorded Cyclobenzaprine [Flexeril] 5 mg PO TID PRN #30 tab 06/11/22 carvediloL [Coreg] 6.25 mg PO BID-W/MEALS #60 tab 06/11/22 hydrALAZINE HCL [Apresoline] 100 mg PO TID #90 tablet 06/11/22 Allergies Allergy/AdvReac Type Severity Reaction Status Date / Time amlodipine besylate AdvReac extreme Verified 07/11/22 11:43 [From Norvasc] anxiety amoxicillin trihydrate AdvReac Nausea & Verified 07/11/22 11:43 [From Augmentin] Vomiting & Diarrhea potassium clavulanate AdvReac Nausea & Verified 07/11/22 11:43 [From Augmentin] Vomiting & Diarrhea Review of Systems ROS Statement: Those systems with pertinent positive or pertinent negative responses have been documented in the HPI. ROS Other: All systems not noted in ROS Statement are negative. Past Medical History Past Medical History: GERD/Reflux, Hypertension Additional Past Medical History / Comment(s): diarrhea, sometimes bloody mucus, abd. 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, REM sleeping disorder History of Any Multi-Drug Resistant Organisms: None Reported Past Surgical History: Back Surgery, Hernia Repair, Prostate Surgery Additional Past Surgical History / Comment(s): TURP in 2014 Past Anesthesia/Blood Transfusion Reactions: Previous Problems w/ Anesthesia, Postoperative Nausea & Vomiting (PONV) Additional Past Anesthesia/Blood Transfusion Reaction / Comment(s): slow to wake up w/TURP Past Psychological History: No Psychological Hx Reported Smoking Status: Former smoker Past Alcohol Use History: Rare Past Drug Use History: None Reported - Past Family History Father Family Medical History: Cancer Sister(s) Family Medical History: Cancer General Exam Limitations: no limitations General appearance: alert, in no apparent distress Head exam: Present: atraumatic Eye exam: Present: other (Ptosis). Absent: scleral icterus, conjunctival injection, periorbital swelling Neck exam: Present: other ([place] collar in place status post surgery) Respiratory exam: Absent: respiratory distress, accessory muscle use Cardiovascular Exam: Present: regular rate GI/Abdominal exam: Present: soft. Absent: distended, tenderness, rigid Left Upper Leg exam: Present: full ROM. Absent: tenderness Knee exam: Present: full ROM, tenderness (Posterior), full knee extension. Absent: ecchymosis, deformity, dislocation, erythema, effusion Lower Leg exam: Present: swelling (Mild), Homans' sign. Absent: ecchymosis, erythema Ankle exam: Present: full ROM. Absent: tenderness Foot/Toe exam: Present: full ROM. Absent: tenderness, calcaneal tenderness Neurovascular tendon exam: Present: no vascular compromise. Absent: abnormal cap refill, extremity cold to touch, pallor, foot drop Back exam: Present: vertebral tenderness (Thoracic surgical site). Absent: tenderness, rash noted Neurological exam: Present: alert, oriented X3 Psychiatric exam: Present: normal affect, normal mood Skin exam: Present: warm, dry, normal color. 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 Surgical procedure was a laminectomy for epidural hematoma mass excision at C4 T4, effusion C4 to T4, bilateral laminectomy, medial facetectomy and foraminotomy Complaining of left leg pain and swelling, sent by PCP office for ultrasound to rule out DVT. Minimal swelling noted to left lower extremity equal to right lower extremity. Negative Homans sign. Dorsal pedal pulses present and equal bilaterally. Leg is pink and warm. Ultrasound of the extremity negative for DVT. No evidence of vascular compromise. Patient instructed to continue taking Tylenol as needed for any pain or discomfort and/or any of the prescribed pain medications as previously prescr ibed. Strict return parameters were discussed and patient was educated on signs and symptoms of DVT including signs of arterial compromise. Patient and family state understanding. Will follow up with her primary care doctor next week and return for any concerning symptoms. Case discussed with Dr. Quijano Was pt. sent in by a medical professional or institution? @ -PCP Did you speak to anyone other than the patient for history? @ -Family member at bedside Did you review nursing and triage notes? @ -Agree Were old charts reviewed? @ -His previous surgical records Differential Diagnosis? @ -Muscle strain, DVT, peripheral artery disease, neuropathy, cellulitis EKG interpreted by me (3pts min.)? @ -None X-rays interpreted by me (1pt min.)? @ -None CT interpreted by me (1pt min.)? @ none U/S interpreted by me (1pt. min.)? @ -Yes no evidence of vascular compromise or DVT What testing was considered but not performed? (CT, X-rays, U/S, labs)? Why? @None What meds were considered but not given? Why? @ -None Did you discuss the management of the patient with other professionals? @ -None Did you reconcile home meds? @ -No Was smoking cessation discussed for >3mins.? @ -Not applicable Was critical care preformed (if so, how long)? @ -No Were there social determinants of health that impacted care today? How? (Homelessness, low income, unemployed, alcoholism, drug addiction, transportation, low edu. Level, literacy, decrease access to med. care, [place] [facility], rehab)? @ -None Was there de-escalation of care discussed even if they declined? (Discuss DNR or withdrawal of care, Hospice)? @ -no What co-morbidities impacted this encounter? (DM, HTN, Smoking, COPD, CAD, Cancer, CVA, Hep., AIDS, mental health diagnosis, sleep apnea, morbid obesity)? @ -Recent back surgery, hypertension Was patient admitted / discharged? @ -Discharged Undiagnosed new problem with uncertain prognosis? @ -[none] Drug Therapy requiring intensive monitoring for toxicity (Heparin, Nitro, Insulin, Cardizem)? @ -None Were any procedures done? @ -None Diagnosis/symptom? @ -Myalgia Acute, or Chronic, or Acute on Chronic? @ -Acute Uncomplicated (without systemic symptoms) or Complicated (systemic symptoms)? @ -Uncomplicated Side effects of treatment? @ -[none] Exacerbation, Progression, or Severe Exacerbation] @ -[no] Poses a threat to life or bodily function? @ -[no] Disposition Clinical Impression: Leg pain, left Disposition: HOME SELF-CARE Condition: Good Instructions (If sedation given, give patient instructions): Knee Pain (ED), Leg Pain (ED) Additional Instructions: Rest, ice and elevate left leg. Take Tylenol as needed for pain or discomfort. Follow-up with the primary care doctor this week. Return to the emergency room with any new or concerning symptoms. Is patient prescribed a controlled substance at d/c from ED?: No Referrals: Drew Ramirez, [Primary Care Provider] - 1-2 days Time of Disposition: 11:45
--- NOTE | 2022-07-11 11:22 | US ---
EXAMINATION TYPE: US venous doppler duplex LE LT DATE OF EXAM: 07/11/2022 11:14 AM COMPARISON: NONE CLINICAL HISTORY: pain s/p sx. Pain SIDE PERFORMED: Left TECHNIQUE: The lower extremity deep venous system is examined utilizing real time linear array sonog nereyda with graded compression, doppler sonography and color-flow sonography. VESSELS IMAGED: Common Femoral Vein Deep Femoral Vein Greater Saphenous Vein * Femoral Vein Popliteal Vein Small Saphenous Vein * Proximal Calf Veins (* superficial vessels) Left Leg: Negative for DVT IMPRESSION: Grayscale, color doppler, spectral doppler imaging performed of the deep veins of the lo wer extremities. There is normal flow, compressibility, vascular waveforms.
[2022-07-11 11:59] VITALS: BP 132/64; PULSE 70; RESP 20
== END 2022-07-11 11:58 | disposition home or self-care (01) ==
LOC: EC 10:19
DX: M25.562 Pain in left knee (principal); K21.9 Gastro-esophageal reflux disease without esophagitis; I10 Essential (primary) hypertension; Z87.891 Personal history of nicotine dependence; Z88.8 Allergy status to other drugs, medicaments and biological substances; Z88.1 Allergy status to other antibiotic agents; Z79.899 Other long term (current) drug therapy
CPT/HCPCS: 99283

== ENCOUNTER → 2023-03-12 | Day surgery (SDC) | payer MEDICARE ==
[~2023-03-12] MED LIST: LACTATED RINGERS 1,000 ML IV SCH; LIDOCAINE 2% INJ 20 MG/ML (2 ML VIAL) ONE; ONDANSETRON 4 MG/2 ML VIAL ONE; PROPOFOL 10 MG/ML 20 ML VIAL IV ONE
[2023-03-12 06:54] VITALS: RESP 16; TEMP 98.1
--- NOTE | 2023-03-12 07:49 | P.PCN ---
Date of Procedure: 03/12/23 Procedure(s) Performed: Brief history: Patient is a pleasant 77-year-old white male scheduled for an elective upper endoscopy as well as colonoscopy as a part of evaluation of intermittent dysphagia to solids and long-standing history of ulcerative colitis diagnosed in 2016 and he remains in clinical remission. Procedure performed: Esophagogastroduodenoscopy with biopsy Colonoscopy with random biopsies Preoperative diagnosis: Intermittent dysphagia to solids Long-standing history of ulcerative colitis [place]est[place]: [facility] [place]: After informed consent was obtained from the patient was brought into the endoscopy unit and IV sedation was administered by anesthesia under continuous monitoring. Initially upper endoscopy was done. The Olympus GF 160 video endoscope was inserted inserted into the mouth and esophagus intubated without any difficulty and was gradually advanced into the stomach and duodenum and carefully examined. The bulb and second part of the duodenum appeared normal. The scope was then withdrawn into the stomach adequately insufflated with air and upon careful examination the antrum and body, cardia and fundus appeared normal. The scope was then withdrawn into the esophagus. The GE junction was located at 40 cm to the incisors. It appeared irregular with no erythema erosions or ulcerations. There was a 3 mm of Dhaliwal's appearing mucosa just proximal to the GE junction was biopsied. Rest of the esophagus appeared normal. There was no evidence of esophagitis or esophageal stricture. Patient tolerated the procedure well. At this time the patient continued to remain sedation. Initial digital rectal examination was normal. Olympus CF 160 video colonoscope was then inserted into the rectum and gradually advanced to the cecum without any difficulty. Careful examination was performed as the scope was gradually being withdrawn. The prep was excellent. The cecum, ascending colon, transverse colon, descending colon, sigmoid colon and rectum appeared normal. In the rectum there was a 3 mm polyp that was removed by cold biopsy. Scattered sigmoid diverticulosis seen. Random biopsies were done from the cecum to rectum at every 10 cm intervals to rule out dysplasia. Retroflexion was performed in the rectum and no lesions were noted. Patient tolerated the procedure well. Impression: 1. Upper endoscopy revealed antral erosive gastritis and short segment Dhaliwal's esophagus but no evidence of esophageal stricture 2. Colonoscopy revealed 3 mm rectal polyp and scattered sigmoid diverticulosis but no evidence of active colitis. Recommendations: Findings of this examination were discussed with the patient as well as his family. He was advised to follow with the biopsy results if the biopsies do not show any evidence of dysplasia he can have a repeat colonoscopy in 3 years.
[2023-03-12 08:40] VITALS: BP 168/71; PULSE 73
== END ==
LOC: ORWHC2ENDO 06:13
PROVIDERS: ATTEND Internal Medicine Gastroenterology
DX: D12.8 Benign neoplasm of rectum (principal); K31.9 Disease of stomach and duodenum, unspecified; K22.70 Barrett's esophagus without dysplasia; K51.90 Ulcerative colitis, unspecified, without complications; K57.30 Diverticulosis of large intestine without perforation or abscess without bleeding; I10 Essential (primary) hypertension; K21.9 Gastro-esophageal reflux disease without esophagitis; Z79.83 Long term (current) use of bisphosphonates; Z88.0 Allergy status to penicillin; Z88.1 Allergy status to other antibiotic agents; Z79.1 Long term (current) use of non-steroidal anti-inflammatories (NSAID); Z90.79 Acquired absence of other genital organ(s); Z88.8 Allergy status to other drugs, medicaments and biological substances; Z98.890 Other specified postprocedural states; Z79.899 Other long term (current) drug therapy
CPT/HCPCS: 88305; 45380; 43239; J2405; J2704; J2001

== ENCOUNTER → 2023-06-16 | Outpatient (CLI) | payer MEDICARE ==
--- NOTE | 2023-06-16 12:14 | FL ---
COMPARISON: NONE DATE OF EXAM: 06/16/2023 HISTORY: Dysphasia A number of thin and thick substances were ingested under the care of the department of speech pathol ogy. There is no evidence of aspiration. There is transient penetration with thin barium. There is no evidence of obstruction. 1 minute 29 seconds of fluoroscopy. Piriform sinus and vallecular poolin g. IMPRESSION: 1. No evidence of aspiration. There is transient penetration with thin barium.
== END | disposition home or self-care (01) ==
LOC: RADFLMAIN 10:52
PROVIDERS: ATTEND Family Medicine
DX: R47.02 Dysphasia (principal); R13.12 Dysphagia, oropharyngeal phase
CPT/HCPCS: 74230

== ENCOUNTER → 2023-09-09 | Outpatient (CLI) | payer MEDICARE ==
--- NOTE | 2023-09-10 08:20 | US ---
EXAMINATION TYPE: US bladder DATE OF EXAM: 09/09/2023 COMPARISON: CLINICAL INDICATION: Male, 78 years old with history of R35.0 FREQUENCY OF MICTURITION; increase freq uence at night. Patient states some burning during urination. TECHNIQUE: Multiple sonographic images of the bladder are obtained. FINDINGS: EXAM MEASUREMENTS: Post Void Residual Volume: 125.3 mL [employer]ODUCTION ASSISTANT NOTES: Bladder appears distended and anechoic. Patient tried to void x 2 but was unable to. Color Doppler performed to assess ureteral jets. Bilateral Jets seen Abnormal Post Void Residual (Normal = less than 50ml) IMPRESSION: The patient attempted to unsuccessfully void twice. Bladder volume is 125 mL which is abnormal and gao ggests urinary retention.
== END | disposition home or self-care (01) ==
LOC: RADUSWWP 12:47
PROVIDERS: ATTEND Family Medicine
DX: R35.0 Frequency of micturition (principal)
CPT/HCPCS: 76857

== ENCOUNTER → 2023-12-22 | Outpatient (CLI) | payer MEDICARE ==
--- NOTE | 2023-12-22 19:37 | US ---
EXAMINATION TYPE: US bladder DATE OF EXAM: 12/22/2023 COMPARISON: Bladder ultrasound 09/09/2023 CLINICAL INDICATION: Male, 78 years old with history of R33.9 RETENTION OF URINE, UNSPECIFIED; Patien t states he has to strain to urinate. Hx abnormal postvoid. TECHNIQUE: Multiple sonographic images of the bladder are obtained. FINDINGS: EXAM MEASUREMENTS: Post Void Residual Volume: 378.7 mL SHIPYARD LABORER NOTES: Tech had patient tried to urinate x 2, patient was unable to void. Color Doppler performed to assess ureteral jets. Bilateral Jets seen Normal Post Void Residual (less than 50ml): ABNORMAL Moving echogenic material identified within the urinary bladder. Patient was unable to void despite 2 attempts. No visualized solid mass. No irregular bladder wall thickening. Bilateral ureteral jets id entified. IMPRESSION: Overall results are similar to prior ultrasound on 09/09/2023 with patient attempting to unsuccessfull y void twice. Bladder volume is 370.7 mL which is again abnormal suggests urinary retention. Nonspeci fic moving echogenic material identified within the urinary bladder. Correlate with urinalysis for cy stitis.
== END | disposition home or self-care (01) ==
LOC: RADUSWWP 15:07
PROVIDERS: ATTEND Family Medicine
DX: R33.9 Retention of urine, unspecified (principal)
CPT/HCPCS: 76857